=== PATIENT | female | born 1995 | race Caucasian/White ===

== ENCOUNTER 2023-11-16 01:44 | Inpatient (IN) | payer SELFPAY ==
[2023-11-16] VITALS (44 sets, daily range): BP systolic 107–141; BP diastolic 57–88; PULSE 67–142; RESP 12–23; TEMP 36.3–37.5; O2SAT 95–100
[2023-11-16] MEDS: 0.9 % SODIUM CHLORIDE 1,000 ML 1000 ML IV (02:25)
--- NOTE | 2023-11-16 02:37 | PC.NURSE ---
Per pt ROM 11/15/2023 at 2030.
[2023-11-16] MEDS: ROPIVACAINE HCL/PF 400 MG/200 ML PREMIX 6 MG EPIDURAL (03:11)
[2023-11-16 03:12] LABS: Hematocrit 37.9 % (36.0-48.0); Hemoglobin 13.4 g/dL (12.0-16.0); Mean Corpuscular HGB Conc 35.4 g/dL (29.9-35.2); Mean Corpuscular Hemoglobin 31.5 pg (26.7-34.0); Mean Platelet Volume 10.5 fL (9.5-13.5); Platelet Count 242 10^3/uL (150-450); Red Blood Count 4.26 10^6/uL (4.20-5.40); Red Cell Distribution Width 12.3 % (11.0-15.0); White Blood Count 16.9 10^3/uL (4.0-11.0)
[2023-11-16] MEDS: LIDOCAINE HCL 2% PF 100 MG/5 ML VIAL INJ (03:12)
[2023-11-16] MEDS: 0.9 % SODIUM CHLORIDE 1,000 ML 125 ML IV (03:32)
[2023-11-16] MEDS: CEFAZOLIN SODIUM/DEXTROSE,ISO 2 GM/50 ML PIGGYBACK IV (04:44)
--- NOTE | 2023-11-16 05:35 | P.OBPRC_ITS ---
Procedure Pre-op/Post-op diagnoses: Pre-Op/Post-Op Diagnoses Operation Date: 11/16/23 04:30 <No data on this case meets the specified criteria> Procedure: Procedures Operation Date: 11/16/23 04:30 Actual Procedure Side Surgeon p Not Applicable Luan Betancur DO Ball Truing Machine Operator: Stephani Savage Estimated blood loss (mL): 575 Disposition: floor Anesthesia type: general
--- NOTE | 2023-11-16 05:36 | PM.ONB ---
Brief Operative Note Date of procedure: 11/16/23 Pre-op diagnosis: iup at 42+weeks (unknown) Post-op diagnosis: same as pre-op Procedure: NAME OF PROCEDURE: [ section ] PROCEDURE: Patient was taken back to the Operating Room where she was given a spinal anesthesia with Duramorph without difficulty. She was prepped and draped in the normal sterile fashion. A Pfannenstiel skin incision was then made 2 cm above the symphysis pubis and carried down to underlying rectus fascia using a Bovie. The fascia was incised in the midline and extended laterally using Munguia scissors. Two Jake clamps were placed on the superior aspect of the fascia and dissected off the underlying rectus muscles. The same was performed on the inferior aspect as well. The muscles were then in the midline. Peritoneum was identified and entered bluntly. The peritoneum was then extended superiorly and inferiorly with good visualization of the bladder. The bladder blade was inserted. A low transverse incision was made on the patient's uterus and extended laterally digitally. The infant was then delivered atraumatically after the bladder blade was removed in the breech position. The cord was clamped and cut. Cord blood was obtained. The was handed off to awaiting team. The patient's placenta was spontaneously delivered. The uterus was then exteriorized. The uterus was cleared of all clots and debris. The bladder blade was reinserted. The patient's uterine incision was closed using #0 Vicryl in a running lock fashion. Excellent hemostasis was assured. The uterus was then returned to the patient's abdomen. The patient's abdomen was copiously irrigated using warm saline. Peritoneal gutters were cleared of all clots and debris. Again excellent hemostasis was assured. The patient's peritoneum was closed using 3-0 Vicryl in a running fashion. The patient's fascia was closed using #0 Vicryl in a running fashion. The patient's skin was closed using 4-0 Vicryl subcuticularly. The patient tolerated the procedure well. Sponge, lap, and needle counts were correct x2. The patient was taken to the Recovery Room in stable condition. Anesthesia: ALBERTO Surgeon: Luan Betancur Assistant Passenger Locomotive Engineer: Stephani Savage Estimated blood loss (mL): 575 Pathology: other (placenta) Condition: stable Disposition: PACU
[2023-11-16] MEDS: LACTATED RINGER'S SOLUTION 1,000 ML 50 ML IV (05:49)
[2023-11-16] MEDS: BUPIVACAINE HCL 0.5% PF 50 MG/10 ML VIAL INJ (06:00)
[2023-11-16] MEDS: BUPIVACAINE LIPOSOME/PF 266 MG/13.3 ML VIAL INJ (06:00)
[2023-11-16] MEDS: BUPIVACAINE HCL 0.25% PF 25 MG/10 ML VIAL INJ (06:02)
--- NOTE | 2023-11-16 06:30 | PC.NURSE ---
PAtient states she feels numb and tingly at her thighs but she can feel this proposal writer touch her rib cage and belly
[2023-11-16] MEDS: OXYTOCIN/0.9 % SODIUM CHLORIDE 20 UNITS/1,000 ML PLAST..BAG 125 UNIT IV (07:00)
--- NOTE | 2023-11-16 09:22 | W.PC.ACHO ---
Registration Status: ADM IN Primary Language: Swedish Preferred Language: Swedish Report given to Renee Avila RN at 0720. Active Medications Generic Name Dose Route Start Last Admin Trade Name Freq PRN Reason Stop Dose Admin Acetaminophen 1,000 mg 11/16/23 14:00 Acetaminophen 500 Mg Tablet PO Q8H PERCY Al Hydroxide/Mg Hydroxide 2,400 mg 11/16/23 05:38 Magnesium Hydroxide 2,400 Mg/10 Ml Oral.Susp PO Q6H PRN Dyspepsia Carboprost Tromethamine 250 mcg 11/16/23 02:13 Carboprost Tromethamine 250 Mcg/Ml 1 Ml Vial IM 11/18/23 02:13 Q15M PRN Bleeding Diphenhydramine HCl 25 mg 11/16/23 02:18 Diphenhydramine Hcl 50 Mg/Ml (1ml) Vial IV 11/17/23 02:18 Q6H PRN Itching Diphenhydramine HCl 25 mg 11/16/23 05:38 Diphenhydramine Hcl 50 Mg/Ml (1ml) Vial IV 11/17/23 05:39 Q6H PRN Itching Docusate Sodium 100 mg 11/17/23 09:00 Docusate Sodium 100 Mg Capsule PO BID PERCY Ephedrine Sulfate 5 mg 11/16/23 02:18 Ephedrine Sulfate 50 Mg/Ml Vial IV 11/17/23 02:18 Q5M PRN Blood Pressure - Low Fentanyl Citrate 100 mcg 11/16/23 02:18 Fentanyl Citrate/Pf 100 Mcg/2 Ml Vial EPIDURAL ONCE PRN epidural Fentanyl Citrate 100 mcg 11/16/23 02:18 Fentanyl Citrate/Pf 100 Mcg/2 Ml Vial EPIDURAL ONCE PRN epidural Sodium Chloride 1,000 mls @ 125 mls/hr 11/16/23 02:30 11/16/23 03:32 Sodium Chloride 0.9% 1,000 Ml IV 125 mls/hr .Q8H [facility]CY Administration Oxytocin/Sodium Chloride 20 units in 1,000 mls @ 125 mls/hr 11/16/23 02:15 11/16/23 07:00 Pitocin 20 Unit/1,000 Ml-Ns IV 11/16/23 10:14 125 mls/hr Q8H [facility] Administration Ropivacaine/Sodium Chloride 400 mg in 200 mls @ 6 mls/hr 11/16/23 02:30 11/16/23 03:11 Naropin 0.2% 400 Mg/200 Ml Bag EPIDURAL 6 mls/hr Q24H [facility] Administration Sodium Chloride 1,000 mls @ 125 mls/hr 11/16/23 06:00 Sodium Chloride 0.9% 1,000 Ml IV .Q8H [facility] Promethazine HCl 25 mg/ Sodium 51 mls @ 204 mls/hr 11/16/23 05:38 Chloride IV Q6H PRN Nausea And Vomiting Oxytocin/Sodium Chloride 20 units in 1,000 mls @ 200 mls/hr 11/16/23 05:38 Pitocin 20 Unit/1,000 Ml-Ns IV 11/16/23 10:37 ONCE ONE Lactated Ringer's 1,000 mls @ 50 mls/hr 11/16/23 06:00 11/16/23 05:49 Lactated Ringers IV 50 mls/hr .Q20H [facility] Administration Cefazolin Sodium/Dextrose 1 gm in 50 mls @ 100 mls/hr 11/16/23 11:00 Ancef IV 11/16/23 11:29 ONCE ONE Ibuprofen 800 mg 11/16/23 05:38 Ibuprofen 400 Mg Tablet PO Q8H PRN Pain Ibuprofen 800 mg 11/17/23 00:00 Ibuprofen 400 Mg Tablet PO Q8H [facility] Ketorolac Tromethamine 30 mg 11/16/23 05:38 Ketorolac Tromethamine 30 Mg/Ml Vial IVP 11/18/23 05:39 Q6H PRN Pain Ketorolac Tromethamine 30 mg 11/16/23 12:00 Ketorolac Tromethamine 30 Mg/Ml Vial IVP Q6H [facility] Lidocaine 5 ml 11/16/23 02:13 Lidocaine Viscous 2% 15 Ml Solution TOPICAL ONCE PRN Pain Lidocaine 1 ml 11/16/23 02:13 Lidocaine Hcl 1% 200 Mg/20 Ml Mdv INJ ONCE PRN Pain Lidocaine 5 ml 11/16/23 02:18 11/16/23 03:12 Lidocaine Hcl 2% Pf 100 Mg/5 Ml Vial INJ 11/17/23 02:18 5 ml Q1H PRN Administration Pain Methylergonovine Maleate 0.2 mg 11/16/23 02:13 Methylergonovine Maleate 0.2 Mg/Ml Ampule IM 11/18/23 02:13 ONCE PRN Uterine Contractility/Contract Methylergonovine Maleate 0.2 mg 11/16/23 02:13 Methylergonovine Maleate 0.2 Mg Tablet PO 11/18/23 02:13 Q4H PRN Uterine Contractility/Contract Misoprostol 600 mcg 11/16/23 02:13 Misoprostol 100 Mcg Tablet PO 11/18/23 02:13 ONCE PRN Uterine Bleeding Misoprostol 800 mcg 11/16/23 02:13 Misoprostol 100 Mcg Tablet SL 11/18/23 02:13 ONCE PRN Uterine Bleeding Misoprostol 1,000 mcg 11/16/23 02:13 Misoprostol 100 Mcg Tablet IL 11/18/23 02:13 ONCE PRN Uterine Bleeding Naloxone HCl 0.4 mg 11/16/23 02:18 Naloxone Hcl 0.4 Mg/Ml Vial IV 11/17/23 02:18 ONCE PRN Opiate Reversal Ondansetron HCl 4 mg 11/16/23 02:13 Ondansetron Pf 4 Mg/2 Ml Vial IV Q6H PRN Nausea And Vomiting Ondansetron HCl 4 mg 11/16/23 02:13 Ondansetron 4 Mg Rapdis Tablet SL Q6H PRN Nausea And Vomiting Ondansetron HCl 4 mg 11/16/23 05:38 Ondansetron Pf 4 Mg/2 Ml Vial IV Q6H PRN Nausea And Vomiting Ondansetron HCl 4 mg 11/16/23 05:38 Ondansetron 4 Mg Rapdis Tablet PO Q6H PRN Nausea And Vomiting Oxycodone HCl 5 mg 11/16/23 08:53 Oxycodone Hcl 5 Mg Tablet PO Q4H PRN Pain Oxycodone/Acetaminophen 1 tab 11/16/23 05:38 Oxycodone Hcl/Acetaminophen 5mg/325mg PO Q4H PRN Pain Scale 4-6 Oxycodone/Acetaminophen 2 tab 11/16/23 05:38 Oxycodone Hcl/Acetaminophen 5mg/325mg PO Q4H PRN Pain Scale 7-10 Oxytocin 10 unit 11/16/23 02:13 Oxytocin 10 Unit/Ml Vial IM 11/18/23 02:13 ONCE PRN Bleeding Senna 17.2 mg 11/16/23 20:00 Sennosides 8.6 Mg Tablet PO QHS PRN Constipation Simethicone 80 mg 11/16/23 05:38 Simethicone 80 Mg Tab.Chew PO QID PRN Abdominal Distention Sterile Water 10 ml 11/16/23 06:00 Water For Injection, Sterile 50 Ml Vial INJ ONCE PERCY Diet Category Date Time Status Regular Consistency Diet Diet 11/16/23 05:38 Active Consults Category Date Time Status Consult to Anesthesiology Routine Cons 11/16/23 Ordered Consult to Anesthesiology Routine Cons 11/16/23 Ordered IV Insertion/Site Date of IV Line Insertion [ 11/16/23 Short PIV (<1.75 in) 20g right Wrist] IV Insertion Time [Short PIV ( 02:10 <1.75 in) 20g right Wrist] Neurology Patient orientation (short person,place,situation list) Respiratory Pulse Oximetry 98 Pulse Oximetry 97 Pulse Oximetry 99 Pulse Oximetry 100 Pulse Oximetry 97 Pulse Oximetry 97 Pulse Oximetry 97 Pulse Oximetry 95 Pulse Oximetry 95 Pulse Oximetry 96 Pulse Oximetry 95 Oxygen Delivery Method Room Air Oxygen Delivery Method Room Air Oxygen Delivery Method Room Air Oxygen Delivery Method Room Air
[2023-11-16] MEDS: KETOROLAC TROMETHAMINE 30 MG/ML VIAL IVP (13:08)
[2023-11-16] MEDS: CEFAZOLIN SODIUM/DEXTROSE,ISO 1 GM/50 ML IV.SOLN IV (13:08)
--- NOTE | 2023-11-16 19:22 | W.PC.ACHO ---
Registration Status: ADM IN Primary Language: Bahamian Preferred Language: Bahamian Active Medications Generic Name Dose Route Start Last Admin Trade Name Freq PRN Reason Stop Dose Admin Acetaminophen 1,000 mg 11/16/23 14:00 Acetaminophen 500 Mg Tablet PO Q8H [facility] Al Hydroxide/Mg Hydroxide 2,400 mg 11/16/23 05:38 Magnesium Hydroxide 2,400 Mg/10 Ml Oral.Susp PO Q6H PRN Dyspepsia Carboprost Tromethamine 250 mcg 11/16/23 02:13 Carboprost Tromethamine 250 Mcg/Ml 1 Ml Vial IM 11/18/23 02:13 Q15M PRN Bleeding Diphenhydramine HCl 25 mg 11/16/23 02:18 Diphenhydramine Hcl 50 Mg/Ml (1ml) Vial IV 11/17/23 02:18 Q6H PRN Itching Diphenhydramine HCl 25 mg 11/16/23 05:38 Diphenhydramine Hcl 50 Mg/Ml (1ml) Vial IV 11/17/23 05:39 Q6H PRN Itching Docusate Sodium 100 mg 11/17/23 09:00 Docusate Sodium 100 Mg Capsule PO BID PERCY Ephedrine Sulfate 5 mg 11/16/23 02:18 Ephedrine Sulfate 50 Mg/Ml Vial IV 11/17/23 02:18 Q5M PRN Blood Pressure - Low Fentanyl Citrate 100 mcg 11/16/23 02:18 Fentanyl Citrate/Pf 100 Mcg/2 Ml Vial EPIDURAL ONCE PRN epidural Fentanyl Citrate 100 mcg 11/16/23 02:18 Fentanyl Citrate/Pf 100 Mcg/2 Ml Vial EPIDURAL ONCE PRN epidural Sodium Chloride 1,000 mls @ 125 mls/hr 11/16/23 02:30 11/16/23 03:32 Sodium Chloride 0.9% 1,000 Ml IV 125 mls/hr .Q8H [facility] Administration Ropivacaine/Sodium Chloride 400 mg in 200 mls @ 6 mls/hr 11/16/23 02:30 11/16/23 03:11 Naropin 0.2% 400 Mg/200 Ml Bag EPIDURAL 6 mls/hr Q24H [facility] Administration Sodium Chloride 1,000 mls @ 125 mls/hr 11/16/23 06:00 Sodium Chloride 0.9% 1,000 Ml IV .Q8H [facility] Promethazine HCl 25 mg/ Sodium 51 mls @ 204 mls/hr 11/16/23 05:38 Chloride IV Q6H PRN Nausea And Vomiting Lactated Ringer's 1,000 mls @ 50 mls/hr 11/16/23 06:00 11/16/23 05:49 Lactated Ringers IV 50 mls/hr .Q20H [facility] Administration Ibuprofen 800 mg 11/16/23 05:38 Ibuprofen 400 Mg Tablet PO Q8H PRN Pain Ibuprofen 800 mg 11/17/23 00:00 Ibuprofen 400 Mg Tablet PO Q8H [facility] Ketorolac Tromethamine 30 mg 11/16/23 05:38 Ketorolac Tromethamine 30 Mg/Ml Vial IVP 11/18/23 05:39 Q6H PRN Pain Ketorolac Tromethamine 30 mg 11/16/23 12:00 11/16/23 13:08 Ketorolac Tromethamine 30 Mg/Ml Vial IVP 30 mg Q6H [facility] Administration Lidocaine 5 ml 11/16/23 02:13 Lidocaine Viscous 2% 15 Ml Solution TOPICAL ONCE PRN Pain Lidocaine 1 ml 11/16/23 02:13 Lidocaine Hcl 1% 200 Mg/20 Ml Mdv INJ ONCE PRN Pain Lidocaine 5 ml 11/16/23 02:18 11/16/23 03:12 Lidocaine Hcl 2% Pf 100 Mg/5 Ml Vial INJ 11/17/23 02:18 5 ml Q1H PRN Administration Pain Methylergonovine Maleate 0.2 mg 11/16/23 02:13 Methylergonovine Maleate 0.2 Mg/Ml Ampule IM 11/18/23 02:13 ONCE PRN Uterine Contractility/Contract Methylergonovine Maleate 0.2 mg 11/16/23 02:13 Methylergonovine Maleate 0.2 Mg Tablet PO 11/18/23 02:13 Q4H PRN Uterine Contractility/Contract Misoprostol 600 mcg 11/16/23 02:13 Misoprostol 100 Mcg Tablet PO 11/18/23 02:13 ONCE PRN Uterine Bleeding Misoprostol 800 mcg 11/16/23 02:13 Misoprostol 100 Mcg Tablet SL 11/18/23 02:13 ONCE PRN Uterine Bleeding Misoprostol 1,000 mcg 11/16/23 02:13 Misoprostol 100 Mcg Tablet [place] 11/18/23 02:13 ONCE PRN Uterine Bleeding Naloxone HCl 0.4 mg 11/16/23 02:18 Naloxone Hcl 0.4 Mg/Ml Vial IV 11/17/23 02:18 ONCE PRN Opiate Reversal Ondansetron HCl 4 mg 11/16/23 02:13 Ondansetron Pf 4 Mg/2 Ml Vial IV Q6H PRN Nausea And Vomiting Ondansetron HCl 4 mg 11/16/23 02:13 Ondansetron 4 Mg Rapdis Tablet SL Q6H PRN Nausea And Vomiting Ondansetron HCl 4 mg 11/16/23 05:38 Ondansetron Pf 4 Mg/2 Ml Vial IV Q6H PRN Nausea And Vomiting Ondansetron HCl 4 mg 11/16/23 05:38 Ondansetron 4 Mg Rapdis Tablet PO Q6H PRN Nausea And Vomiting Oxycodone HCl 5 mg 11/16/23 08:53 Oxycodone Hcl 5 Mg Tablet PO Q4H PRN Pain Oxycodone/Acetaminophen 1 tab 11/16/23 05:38 Oxycodone Hcl/Acetaminophen 5mg/325mg PO Q4H PRN Pain Scale 4-6 Oxycodone/Acetaminophen 2 tab 11/16/23 05:38 Oxycodone Hcl/Acetaminophen 5mg/325mg PO Q4H PRN Pain Scale 7-10 Oxytocin 10 unit 11/16/23 02:13 Oxytocin 10 Unit/Ml Vial IM 11/18/23 02:13 ONCE PRN Bleeding Senna 17.2 mg 11/16/23 20:00 Sennosides 8.6 Mg Tablet PO QHS PRN Constipation Simethicone 80 mg 11/16/23 05:38 Simethicone 80 Mg Tab.Chew PO QID PRN Abdominal Distention Sterile Water 10 ml 11/16/23 06:00 Water For Injection, Sterile 50 Ml Vial INJ ONCE [facility] Diet Category Date Time Status Regular Consistency Diet Diet 11/16/23 05:38 Active Consults Category Date Time Status Consult to Anesthesiology Routine Cons 11/16/23 Ordered Consult to Anesthesiology Routine Cons 11/16/23 Ordered IV Insertion/Site Date of IV Line Insertion [ 11/16/23 Short PIV (<1.75 in) 20g right Wrist] IV Insertion Time [Short PIV ( 02:10 <1.75 in) 20g right Wrist] Neurology Patient orientation (short person,place,situation list) Respiratory Pulse Oximetry 98 Pulse Oximetry 97 Pulse Oximetry 99 Pulse Oximetry 100 Pulse Oximetry 97 Pulse Oximetry 97 Pulse Oximetry 97 Pulse Oximetry 95 Pulse Oximetry 95 Pulse Oximetry 96 Pulse Oximetry 95 Oxygen Delivery Method Room Air Oxygen Delivery Method Room Air Oxygen Delivery Method Room Air Oxygen Delivery Method Room Air Oxygen Delivery Method Room Air Oxygen Delivery Method Room Air Oxygen Delivery Method Room Air Bowels Bowel Pattern No Bowel Movement Catheter Date Urinary Catheter Removed 11/16/23 [Urethral] Time Urinary Catheter 16:40 Discontinued [Urethral]
[2023-11-17 01:38] VITALS: RESP 16; TEMP 36.6
[2023-11-17 01:41] VITALS: BP 126/66; PULSE 80
[2023-11-17 06:07] VITALS: BP 122/68; PULSE 92; TEMP 36.5
[2023-11-17 06:32] LABS: Basophils Percent Auto 0.1 % (0.2-2.0); Eosinophils Percent Auto 0.1 % (0.9-7.0); Hematocrit 31.4 % (36.0-48.0); Hemoglobin 10.6 g/dL (12.0-16.0); Immature Granulocytes Abs Auto 0.04 10^3/uL (0.00-0.03); Immature Granulocytes Pct Auto 0.4 % (0.0-0.5); Lymphocytes Absolute Auto 1.3 10^3/uL (1.2-3.8); Lymphocytes Percent Auto 11.3 % (20.5-60.0); Mean Corpuscular HGB Conc 33.8 g/dL (29.9-35.2); Mean Corpuscular Hemoglobin 31.5 pg (26.7-34.0); Mean Corpuscular Volume 93.5 fL (81.0-99.0); Monocytes Absolute Auto 0.7 10^3/uL (0.3-0.8); Monocytes Percent Auto 6.6 % (1.7-12.0); Neutrophils Absolute Auto 9.1 10^3/uL (1.4-6.5); Neutrophils Percent Auto 81.5 % (43.0-75.0); Platelet Count 167 10^3/uL (150-450); Red Blood Count 3.36 10^6/uL (4.20-5.40); Red Cell Distribution Width 12.8 % (11.0-15.0); White Blood Count 11.2 10^3/uL (4.0-11.0)
--- NOTE | 2023-11-17 07:51 | PM.OBPN ---
OB - PN: Subj Subjective Patient comments: no complaints and pain well controlled [place] status: doing well Exam Constitutional Vital Signs, click to edit/add: Last Vital Signs Temp 97.7 F 11/17/23 06:07 Pulse 92 H 11/17/23 06:07 Resp 16 11/17/23 01:38 BP 122/68 11/17/23 06:07 Pulse Ox 98 11/16/23 06:36 O2 Del Method Room Air 11/16/23 16:40 Documenting provider has reviewed patient's vital signs: yes Common normals: no apparent distress Respiratory Common normals: normal respiratory effort and clear to auscultation bilaterally Cardio Common normals: regular rate and regular rhythm GI Common normals: Normal to inspection, nondistended, normoactive bowel sounds present Extremity Common normals: no calf tenderness Results Labs Labs: Short CBC 11/17/23 Range/Units 06:20 WBC 11.2 H (4.0-11.0) 10^3/uL Hgb 10.6 L (12.0-16.0) g/dL Hct 31.4 L (36.0-48.0) % Plt Count 167 (150-450) 10^3/uL Urinary Catheter Management Urinary Catheter Management Urethral: Cath placed during this visit: yes, but has since been removed by the nurse Removal date: 11/16/23 Removal time: 16:40 OB - PN: A/P Plan - day: 1 Plan: routine postop care Time Spent with Patient Time: Total time spent is greater than 50% in coordination of care (as documented) at patient's floor/unit and/or counseling patient: Total time spent with greater than 50% in coordination of care (as documented) at patient's floor/unit and/or counseling patient: less than 15 minutes
[2023-11-17 08:24] VITALS: BP 127/74; PULSE 84
[2023-11-17 08:25] VITALS: RESP 16; TEMP 36.9
--- NOTE | 2023-11-17 12:03 | CM.NOTE ---
11/17/23) 11:45 Spoke to patient and she is a true self pay and she would like someone to speak to her regarding her financial options. Emailed financial counselor, Tahira Danielson, requesting she reach out to patient.
[2023-11-17 16:26] VITALS: BP 109/68; PULSE 86; RESP 16; TEMP 36.6; O2SAT 98
--- NOTE | 2023-11-17 20:15 | PC.NURSE ---
1919- Report given to Natanael Olmedo RN.
[2023-11-18 00:45] VITALS: BP 121/75; PULSE 86; TEMP 36.5
--- NOTE | 2023-11-18 07:29 | W.PC.ACHO ---
Registration Status: ADM IN Primary Language: Australian Preferred Language: Australian Active Medications Generic Name Dose Route Start Last Admin Trade Name Freq PRN Reason Stop Dose Admin Acetaminophen 1,000 mg 11/16/23 14:00 11/17/23 22:00 Acetaminophen 500 Mg Tablet PO Not Given Q8H [facility] Al Hydroxide/Mg Hydroxide 2,400 mg 11/16/23 05:38 Magnesium Hydroxide 2,400 Mg/10 Ml Oral.Susp PO Q6H PRN Dyspepsia Docusate Sodium 100 mg 11/17/23 09:00 11/17/23 21:55 Docusate Sodium 100 Mg Capsule PO Not Given BID PERCY Sodium Chloride 1,000 mls @ 125 mls/hr 11/16/23 02:30 11/16/23 03:32 Sodium Chloride 0.9% 1,000 Ml IV 125 mls/hr .Q8H [facility] Administration Promethazine HCl 25 mg/ Sodium 51 mls @ 204 mls/hr 11/16/23 05:38 Chloride IV Q6H PRN Nausea And Vomiting Ibuprofen 800 mg 11/16/23 05:38 Ibuprofen 400 Mg Tablet PO Q8H PRN Pain Ibuprofen 800 mg 11/17/23 00:00 11/18/23 00:00 Ibuprofen 400 Mg Tablet PO Not Given Q8H [facility] Ketorolac Tromethamine 30 mg 11/16/23 12:00 11/17/23 09:08 Ketorolac Tromethamine 30 Mg/Ml Vial IVP Not Given Q6H [facility] Ondansetron HCl 4 mg 11/16/23 02:13 Ondansetron Pf 4 Mg/2 Ml Vial IV Q6H PRN Nausea And Vomiting Ondansetron HCl 4 mg 11/16/23 02:13 Ondansetron 4 Mg Rapdis Tablet SL Q6H PRN Nausea And Vomiting Oxycodone HCl 5 mg 11/16/23 08:53 Oxycodone Hcl 5 Mg Tablet PO Q4H PRN Pain Oxycodone/Acetaminophen 1 tab 11/16/23 05:38 Oxycodone Hcl/Acetaminophen 5mg/325mg PO Q4H PRN Pain Scale 4-6 Oxycodone/Acetaminophen 2 tab 11/16/23 05:38 Oxycodone Hcl/Acetaminophen 5mg/325mg PO Q4H PRN Pain Scale 7-10 Senna 17.2 mg 11/16/23 20:00 Sennosides 8.6 Mg Tablet PO QHS PRN Constipation Simethicone 80 mg 11/16/23 05:38 Simethicone 80 Mg Tab.Chew PO QID PRN Abdominal Distention Respiratory Pulse Oximetry 98 Oxygen Delivery Method Room Air Oxygen Delivery Method Room Air Bowels Bowel Pattern No Bowel Movement Renal Bladder Pattern Continent Bladder Pattern Continent Catheter Date Urinary Catheter Removed 11/16/23 [Urethral] Time Urinary Catheter 16:40 Discontinued [Urethral]
--- NOTE | 2023-11-18 09:34 | P.OBPN_ITS ---
OB - PN: Subj Subjective Patient comments: no complaints and pain well controlled [place] status: doing well Exam Constitutional Vital Signs, click to edit/add: Last Vital Signs Temp 97.7 F 11/18/23 00:45 Pulse 86 11/18/23 00:45 Resp 16 11/17/23 16:26 BP 121/75 11/18/23 00:45 Pulse Ox 98 11/17/23 16:26 O2 Del Method Room Air 11/17/23 16:26 Documenting provider has reviewed patient's vital signs: yes Common normals: no apparent distress Respiratory Common normals: normal respiratory effort and clear to auscultation bilaterally Cardio Common normals: regular rate and regular rhythm GI Common normals: Normal to inspection, nondistended, normoactive bowel sounds present Extremity Common normals: no clubbing, cyanosis or edema and no calf tenderness Urinary Catheter Management Urinary Catheter Management Urethral: Cath placed during this visit: yes, but has since been removed by the nurse Removal date: 11/16/23 Removal time: 16:40 OB - PN: A/P Plan - day: 2 Plan: routine postop care, discharge home and other (1wk) Time Spent with Patient Time: Total time spent is greater than 50% in coordination of care (as documented) at patient's floor/unit and/or counseling patient: Total time spent with greater than 50% in coordination of care (as documented) at patient's floor/unit and/or counseling patient: less than 15 minutes
[2023-11-18 11:00] VITALS: RESP 16
[2023-11-18 12:05] VITALS: BP 124/71; PULSE 83
--- NOTE | 2023-11-18 13:51 | PC.NURSE ---
1330 Patient assisted out to car with in car seat. Mom and in stable condition, car seat secured safely in car.
--- NOTE | 2023-11-26 | DS_ITS ---
DISCHARGE DATE: 11/26/2023 PRIMARY DIAGNOSES: 1. Intrauterine at 42+ weeks. 2. Breech presentation. PROCEDURE: section. HOSPITAL COURSE: As expected. Please see chart for full details. LABORATORY DATA: Please see chart. COMPLICATIONS: None. DISCHARGE CONDITION: Stable. CONSULTATION: Anesthesia. DISCHARGE INSTRUCTIONS: 1. Diet: Regular. 2. Medications: a. Percocet 5/325 one to two p.o. every 4-6 hours p.r.n. pain. b. Motrin 800 one p.o. every 8 hours p.r.n. pain. 3. Followup in one week. Restrictions: Pelvic rest for 6 weeks. No heavy lifting[address] May drive when pain free and no longer on narcotics. MTDD
== END 2023-11-18 13:30 | disposition home or self-care (01) | DRG 788 ==
PROVIDERS: Admitting Provider Obstetrics & Gynecology; Visit Provider Obstetrics & Gynecology
PROC: 10D00Z1 Extraction of Products of Conception, Low, Open Approach (ICD-10-PCS; CPT 59514; principal; 2023-11-16 04:30)
DX: O32.1XX0 Maternal care for breech presentation, not applicable or unspecified (principal); O48.0 Post-term pregnancy; Z3A.42 42 weeks gestation of pregnancy; Z37.0 Single live birth
CPT/HCPCS: 36415; 59050; 64488; 80307; 85025; 85027; 86850; 86900; 86901; 88307; J0131; J0665; J0690; J1100; J1885; J2250; J2405; J2590; J2704; J2795; J3010

== ENCOUNTER 2024-07-14 11:38 | Outpatient (RCR) | payer MEDICAID, SELFPAY ==
[2024-07-14 14:23] LABS: HCG Quantitative 101810 mIU/mL
== END 2024-07-28 12:06 | disposition home or self-care (01) ==
LOC: LAB 11:38
PROVIDERS: Visit Provider Obstetrics & Gynecology
DX: N92.6 Irregular menstruation, unspecified (principal)
CPT/HCPCS: 36415; 84702

== ENCOUNTER 2024-07-29 08:33 | Outpatient (OUT) | payer MEDICAID, SELFPAY ==
--- NOTE | 2024-07-29 08:30 | US_ITS ---
[address] [address] Patient Name: NANCY GR MRN: [id number] date: 1995 Sex: F Assigned Patient Location: [facility] Current Patient Location: [facility] Accession/Order Number: [id number] Exam Date: 07/29/2024 08:35 Report Date: 07/29/2024 10:48 At the request of: REED MARSHALL Procedure: US OB >= 14 weeks Fetus EXAMINATION: US OB >= 14 weeks Fetus, US OB transvaginal HISTORY: MISSED MENSES COMPARISON: No relevant comparison available. TECHNIQUE: Transabdominal sonographic examination was performed for obstetrical and evaluation. FINDINGS: Number: 1 Heart Rate: 146 bpm H.B. /min Amniotic Fluid Volume: Subjectively normal Placental Location: Blank Cervix Length: 3.33 cm Gestational sac: 8.34 cm CRL: 9.26 cm, 15 weeks 1 day BIOMETRY: BPD: 3.13 cm; 15 weeks 6 days; HC: 10.76 cm; 15 weeks 1 day; AC: 9.89 cm; 16 weeks 0 days; FL: 1.87 cm; 15 weeks 4 days; EFW:139.13 g; 5 ounces FL/AC: 18.91 FL/BPD: 59.74 HC/AC: 1.09 GESTATIONAL AGE: Age by EDC: Unknown Age by current US: 15 weeks 4 days CLARISSA by current US: 2025-01-16 US/US OB >= 14 weeks Fetus IMPRESSION: Davis intrauterine gestation measuring 15 weeks 4 days Closed cervix measuring 3.3 cm in length *Reference: [employer] Practice Guideline for the performance of Obstetric Ultrasound Examinations, June 28, 2007. Electronically authenticated by: LUCILA CASTILLO Date: 07/29/2024 10:48
--- NOTE | 2024-07-29 08:34 | US_ITS ---
[address] [address] Patient Name: NANCY GR MRN: [id number] date: 1995 Sex: F Assigned Patient Location: [facility] Current Patient Location: [facility] Accession/Order Number: [id number] Exam Date: 07/29/2024 08:34 Report Date: 07/29/2024 10:48 At the request of: REED MARSHALL Procedure: US OB transvaginal EXAMINATION: US OB >= 14 weeks Fetus, US OB transvaginal HISTORY: MISSED MENSES COMPARISON: No relevant comparison available. TECHNIQUE: Transabdominal sonographic examination was performed for obstetrical and evaluation. FINDINGS: Number: 1 Heart Rate: 146 bpm H.B. /min Amniotic Fluid Volume: Subjectively normal Placental Location: Blank Cervix Length: 3.33 cm Gestational sac: 8.34 cm CRL: 9.26 cm, 15 weeks 1 day BIOMETRY: BPD: 3.13 cm; 15 weeks 6 days; HC: 10.76 cm; 15 weeks 1 day; AC: 9.89 cm; 16 weeks 0 days; FL: 1.87 cm; 15 weeks 4 days; EFW:139.13 g; 5 ounces FL/AC: 18.91 FL/BPD: 59.74 HC/AC: 1.09 GESTATIONAL AGE: Age by EDC: Unknown Age by current US: 15 weeks 4 days CLARISSA by current US: 2025-01-16 US/US OB transvaginal IMPRESSION: Davis intrauterine gestation measuring 15 weeks 4 days Closed cervix measuring 3.3 cm in length *Reference: [employer] Practice Guideline for the performance of Obstetric Ultrasound Examinations, June 28, 2007. Electronically authenticated by: LUCILA CASTILLO Date: 07/29/2024 10:48
--- OUTSIDE RECORDS SUMMARY | 2024-07-29 08:37 | XMS_ITS | CCD ---
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 Name Role Phone Sailaja Ren Tiffanie Unavailable NON STAFF Primary Care Provider UnavailMD Alisia Smith Attending Provider Sarah Dominguez Unavailable PIPE ., DR MCBRIDE Consulting Unavailable PIPE ., DR MCBRIDE Attending Unavailable AICHHOLZ, TILE ERECTOR SAILAJA Primary Care Unavailable PIPE ., DR MCBRIDE Admitting Unavailable ZIEBER, DR GM Rae Consulting Unavailable KARASIK ., DR KRUGER Consulting Unavailabl e KARASIK ., DR KRUGER Attending Unavailabl e AICHHOLZ, TILE ERECTOR SAILAJA Primary Care Unavailable KARASIK ., DR KRUGER Admitting Unavailabl e PIPE ., DR MCBRIDE Procedure Practitioner Unavail able PIPE ., DR MCBRIDE Consulting Unavailable KARASIK ., DR KRUGER Admitting Unavailabl e KARASIK ., DR KRUGER Attending Unavailabl e AICHHOLZ, TILE ERECTOR SIALAJA Primary Care Unavailable AICHHOLZ, TILE ERECTOR SAILAJA Primary Care Unavailable PIPE ., DR MCBRIDE Attending Unavailable PIPE ., DR MCBRIDE Admitting Unavailable AICHHOLZ, TILE ERECTOR SAILAJA Primary Care Unavailable PIPE ., DR MCBRIDE Attending Unavailable PIPE ., DR MCBRIDE Admitting Unavailable PIPE ., DR MCBRIDE Consulting Unavailable AICHHOLZ, TILE ERECTOR SAILAJA Primary Care Unavailable PIPE ., DR MCBRIDE Attending Unavailable PIPE ., DR MCBRIDE Admitting Unavailable PIPE ., DR MCBRIDE Consulting Unavailable AICHHOLZ, TILE ERECTOR SAILAJA Primary Care Unavailable PIPE ., DR MCBRIDE Attending Unavailable PIPE ., DR MCBRIDE Admitting Unavailable PIPE ., DR MCBRIDE Consulting Unavailable AICHHOLZ, TILE ERECTOR SAILAJA Primary Care Unavailable PIPE ., DR MCBRIDE Attending Unavailable PIPE ., DR MCBRIDE Admitting Unavailable [facility] Primary Care Unavailable PIPE ., DR MCBRIDE Attending Unavailable PIEP ., DR MCBRIDE Admitting Unavailable PIPE ., DR MCBRIDE Consulting Unavailable ZIEBER, DR GM Rae Consulting Unavailable [facility] Primary Care Unavailable PIPE ., DR MCBRIDE Attending Unavailable PIPE ., DR MCBRIDE Consulting Unavailable PIPE ., DR MCBRIDE Admitting Unavailable Reed Betancur Attending Provider Reed Betancur Attending Unavailable Reed Betancur Admitting Unavailable Reed Betancur Attending Unavailable Pipe, Reed Admitting Unavailable Unavailable Primary Care Provider Unavailabl e Allergies Allergy Classification Reported Allergen(s) Allergy Type Date of Onset Reaction(s) Facility (2 sources) Amoxicillin Drug Allergy 4 hives, Unknown [facility] (1 source) Amoxicillin Drug Allergy 3 [facility] (1 source) Penicillin G Drug Allergy 4 Unknown [facility] Medications Current Medications Medication Drug Class(es) Dates Sig (Normalized) Sig (Original) predniSONE 20 mg oral tablet (1 source) Start: 03-23-2022 take 1 tablet by mouth every twelve hours predniSONE 20 MG 1 tablet Orally 2 times a day for 5 day(s) Feb, Active Vit-Fe Fumarate-FA (PNV Plus Multivitamin) 27-1 MG tablet (1 source) Vit-Fe Fumarate-FA (PNV Plus Multivitamin) 27-1 MG tablet 1 (one) time each day at the same time Active Completed/Discontinued Medications Medication Drug Class(es) Dates Sig (Normalized) Sig (Original) triamcinolone acetonide 40 mg/ml injectable suspension (2 sources) Corticosteroid Start: 03-23-2022 Kenalog-40 Feb, 40 mg Triamcinolone Ac etonide 0.1 % 1 application Externally Twice a day Active Problems Active Problems Problem Classification Problem Date Documented Date Episodic/Chronic Abdominal pain (1 source) Abdominal pain; Translations: [Unspecified abdominal pain] Episodic Menstrual disorders (6 sources) Missed period; Translations: [Irregular menstrual cycle] Onset: 05-08-2022 Chronic OB-related trauma to perineum and vulva (1 source) First degree perineal laceration during delivery; Translations: [FIRST DEG PERINEAL LAC DUR DELIV] Onset: 12-11-2022 Episodic Other and delivery including normal (11 sources) care status; Translations: [Supervision of other normal ] Onset: 05-05-2022 Episodic Other screening for suspected conditions (not mental disorders or infectious disease) (13 sources) Encounter for screening for Streptococcus B; Translations: [Encounter for screening for diabetes mellitus] Onset: 05-09-2022 Episodic Residual codes; unclassified (1 source) 39 weeks gestation of ; Translations: [39 WEEKS GESTATION OF ] Onset: 12-11-2022 Episodic Past or Other Problems Problem Classification Problem Date Documented Date Episodic/Chronic Allergic reactions (1 source) Unspecified contact dermatitis, unspecified cause Onset: 03-23-2022 Resolved: 03-23-2022 Episodic Immunizations and screening for infectious disease (2 sources) Encounter for screening for human papillomavirus (HPV); Translations: [Contact with and (suspected) exposure to infections with a predominantly sexual mode of transmission] Onset: 08-30-2022 Episodic Other female genital disorders (1 source) Other specified noninflammatory disorders of vagina; Translations: [OTH SPEC NONINFLAMMATORY D/O VAGINA] Onset: 08-30-2022 Episodic Residual codes; unclassified (1 source) 9 weeks gestation of ; Translations: [9 WEEKS GESTATION OF ] Onset: 05-05-2022 Episodic Results Test Name Value Interpretation Reference Range Facility [facility] PREG QUANT HCGon 10-17-2 024 HCG QUANTITATIVE [id number] mIU/mL [facility] Comment on above: 5-50 0.2-1 WEEK 50-500 1-2 WEEKS 100-5,000 2-3 WEEKS 500-10,000 3-4 WEEKS 1,000-50,000 4-5 WEEKS 10,000-100,000 5-6 WEEKS 15,000-200,000 6-8 WEEKS 10,000-100,000 2-3 MONTHS [facility] Moises 11-16-2023 L Specimen: [id number] Received: 11/16/23 Status: HUMA [place] Num: [id number] Spec Type: Surgical Subm Dr: Reed Betancur Tissues: A Placenta - 3rd Trimester (Greater than 28 weeks) (PLACENTA) Procedures: HE/4, Gross/Micro L5 Age/ Patient Sex Location Account Attending Physician TrentSusana Fay 28/F LABELL [id number] Reed Betancur SPEC NUM: [id number] RECD: 11/16/23 STATUS: HUMA [facility] NUM: [id number] MARTHA: 11/16/23- SUBM DR: Reed Betancur ENTERED: 11/16/23 [facility] DR: Shawn,Lab SPEC TYPE: Surgical DEPT: MEGHNA EDWARD ORDERED: HE/4, Gross/Micro L5 ORDERED: HE/4, Gross/Micro L5 Pathological Diagnosis Placenta, With: Umbilical Cord: Three Vessel Cord, Unremarkable. Membranes: Unremarkable. Placenta: Mature Chorionic Villi, Consistent With Third Trimester Placenta. Foci of Parenchymal Necrosis Are Identified. Clinical Information section-breech, history of miscarriage, no care, gestation 42 weeks, G3, P1 Gross Description Received in formalin labeled with the patient's name, date of and placenta is an 18 x 15 cm cortes placenta which following fixation and after removal of the membranes and umbilical cord is 608 g. The membranes are diffusely thickened, chacon and opaque. The surface is glistening pale blue-murcia with multifocal subamniotic fibrin deposition. The attached 26 cm long by 1.5 cm average diameter segment of three-vessel umbilical cord is slightly eccentrically inserted 5 cm from the edge of the placental disc. The maternal surface is focally disrupted, but appears complete. Sectioning demonstrates soft red-brown parenchyma 2.7 cm in average thickness. Furniture Repairer sections are submitted in 4 cassettes as follows: A1 - membranes, umbilical cord, and decidua basalis A2-A3 - Central placenta, full-thickness, with fibrin deposition -------- Specimen: [id number] Received: 11/16/23 Status: HUMA [place] Num: [id number] Spec Type: Surgical Subm Dr: Reed Betancur Tissues: A Placenta - 3rd Trimester (Greater than 28 weeks) (PLACENTA) Procedures: Jesus DUNHAM/Taya L5 -------- Patient: Susana Newman [id number] (Continued) -------- Specimen: [id number] Received: 11/16/23 (Continued) Gross Description (Continued) Signed (signature on file) Desiree Ward MD 11/22/23 2135 -------- Specimen: [id number] Received: 11/16/23 Status: HUMA [facility] Num: [id number] Spec Type: Surgical Subm Dr: Reed Betancur Tissues: A Placenta - 3rd Trimester (Greater than 28 weeks) (PLACENTA) Procedures: Jesus DUNHAM/Taya L5 -------- Patient: Susana Newman [id number] (Continued) -------- Specimen: [id number] Received: 11/16/23 (Continued) Gross Description (Continued) A4 - Peripheral placenta CPT Codes 33386 -------- -------- Specimen: [id number] Received: 11/16/23 Status: HUMA [place] Num: [id number] Spec Type: Surgical Subm Dr: Reed Betancur Tissues: A Placenta - 3rd Trimester (Greater than 28 weeks) (PLACENTA) Procedures: HE/4, Gross/Micro L5 -------- Patient: Susana Newman [id number] (Continued) -------- Signed (signature on file) Desiree Ward MD 11/22/23 2135 Normal [facility] CBC W MANUAL DIFFon 12-06-19 23 ATYPICAL LYMPH # Normal [facility] Comment on above: Performed By: #### C BAYRON #### [facility] [address] [place] [address] Dr. Jennifer Almanza ATYPICAL LYMPH % Normal [facility] Comment on above: Performed By: #### C BAYRON #### [facility] [address] [place] [address] Dr. Jennifer Almanza BAND # 0.0 103/ul Normal 0.0-0.3 [facility] Comment on above: Performed By: #### Sumeet VERMA #### [facility] [address] [place] [address] Dr. Jennifer Almanza BAND % 0 % Normal 0-5 [facility] Comment on above: Performed By: #### C BAYRON #### [facility] [address] [place] [address] Dr. Jennifer Almanza BASOM # 0.00 103/ul Normal 0.00-0.10 [facility] Comment on above: Performed By: #### C BAYRON #### [facility] [address] [place] [address] Dr. Jennifer Almanza BASOM % 0.0 % Critically low 0.2-2.0 [facility] Comment on above: Performed By: #### C BCANGEL #### [facility] [address] [place] [address] Dr. Jennifer Almanza BLAST # Normal [facility] Comment on above: Performed By: #### C BAYRON #### [facility] [address] [place] [address] Dr. Jennifer Almanza BLAST % Normal [facility] Comment on above: Performed By: #### C BCANGEL #### [facility] [address] [place] [address] Dr. Jennifer Almanza CORRECTED WBC Normal 4.0-11.0 [facility] Comment on above: Performed By: #### C BAYRON #### [facility] [address] [place] [address] Dr. Jennifer Almanza EOS # 0.00 103/ul Normal 0.00-0.70 [facility] Comment on above: Performed By: #### C BAYRON #### [facility] [address] [place] [address] Dr. Jennifer Almanza EOS% 0.0 % Critically low 0.9-7.0 [facility] Comment on above: Performed By: #### C BAYRON #### [facility] [address] [place] [address] Dr. Jennifer Almanza HCT 32.4 % Critically low 36.0-48.0 [facility] Comment on above: Performed By: #### C BAYRON #### [facility] [address] [place] [address] Dr. Jennifer Almanza HGB 11.7 g/dl Critically low 12.0-16.0 [facility] Comment on above: Performed By: #### C BAYRON #### [facility] [address] [place] [address] Dr. Jennifer Almanza LYMPHM # 1.62 103/ul Normal 1.20-3.80 [facility] Comment on above: Performed By: #### C BAYRON #### [facility] [address] [place] [address] Dr. Jennifer Almanza LYMPHM% 8.0 % Critically low 20.5-60.0 [facility] Comment on above: Performed By: #### C BAYRON #### [facility] [address] [place] [address] Dr. Jennifer Almanza MCH 30.8 pg Normal 26.7-34.0 [facility] Comment on above: Performed By: #### C BAYRON #### [facility] [address] [place] [address] Dr. Jennifer Almanza MCHC 36.1 g/dl Critically high 29.9-35.2 [facility] Comment on above: Performed By: #### C BAYRON #### [facility] [address] [place] [address] Dr. Jennifer Almanza MCV 85.3 fL Normal 81.0-99.0 [facility] Comment on above: Performed By: #### C BAYRON #### [facility] [address] [place] [address] Dr. Jennifer Almanza METAMYELOCYTE # Normal [facility] Comment on above: Performed By: #### C BAYRON #### [facility] [address] [place] [address] Dr. Jennifer Almanza METAMYELOCYTE % Normal [facility] Comment on above: Performed By: #### C BAYRON #### [facility] [address] [place] [address] Dr. Jennifer Almanza MONOM# 0.81 103/ul Critically high 0.30-0.80 [facility] Comment on above: Performed By: #### C BAYRON #### [facility] [address] [place] [address] Dr. Jennifer Almanza MONOM% 4.0 % Normal 1.7-12.0 [facility] Comment on above: Performed By: #### C BAYRON #### [facility] [address] [place] [address] Dr. Jennifer Almanza MPV 11.8 fL Normal 9.5-13.5 [facility] Comment on above: Performed By: #### C BAYRON #### [facility] [address] [address] [address] Jennifer Almanza MYELOCYTE # Normal [facility] Comment on above: Performed By: #### C BAYRON #### [facility] [address] [address] [address] Jennifer Almanza MYELOCYTE % Normal [facility] Comment on above: Performed By: #### C BCANGEL #### [facility] [address] [address] [address] Jennifer Almanza NRBC Normal [facility] Comment on above: Performed By: #### C BAYRON #### [facility] [address] [address] [address] Jennifer Almanza PLT 142 103/ul Critically low 150-450 [facility] Comment on above: Performed By: #### C BAYRON #### [facility] [address] [address] [address] Jennifer Almanza RBC 3.80 106/ul Critically low 4.20-5.[address] [facility] Comment on above: Performed By: #### C BAYRON #### [facility] [address] [address] [address] Jennifer Almanza RDW 12.7 % Normal 11.0-15.0 [facility] Comment on above: Performed By: #### C BAYRON #### [facility] [address] [address] [address] Jennifer Almanza SEG # 17.78 103/ul Critically high 1.40-6.50 [facility] Comment on above: Performed By: #### C BCANGEL #### [facility] [address] [address] [address] Jennifer Almanza SEG % 88.0 % Critically high 43.0-75.0 [facility] Comment on above: Performed By: #### C BAYRON #### [facility] [address] [address] [address] Jennifer Almanza WBC 20.2 103/ul Critically high 4.0-11.0 [facility] Comment on above: Performed By: #### C BCANGEL #### [facility] [address] [address] [address] Jennifer Almanza CBC AUTO DIFFon 12-04-2022 BASO # 0.0 103/ul Normal 0.0-0.1 [facility] Comment on above: Performed By: #### C BC #### [facility] [address] [place] [address] Dr. Jennifer Almanza Basophils/100 WBC (Bld) 0.2 % Normal 0.2-2.0 [facility] Comment on above: Performed By: #### C BC #### [facility] [address] [place] [address] Dr. Jennifer Almanza EO # 0.0 103/ul Normal 0.0-0.7 [facility] Comment on above: Performed By: #### C BC #### [facility] [address] [place] [address] Dr. Jennifer Almanza Eosinophils/100 WBC (Bld) 0.0 % Critically low 0.9-7.0 [facility] Comment on above: Performed By: #### C BC #### [facility] [address] [place] [address] Dr. Jennifer Almanza Erythrocyte distribution width (RBC) [Ratio] 12.6 % Normal 11.0-15.0 [facility] Comment on above: Performed By: #### C BC #### [facility] [address] [place] [address] Dr. Jennifer Almanza Hematocrit (Bld) [Volume fraction] 40.6 % Normal 36.0-48.0 [facility] Comment on above: Performed By: #### C BC #### [facility] [address] [place] [address] Dr. Jennifer Almanza Hemoglobin (Bld) [Mass/Vol] 14.6 g/dL Normal 12.0-16.0 [facility] Comment on above: Performed By: #### C BC #### [facility] [address] [place] [address] Dr. Jennifer Almanza IG # 0.07 10e3/ul Critically high 0.00-0.03 [facility] Comment on above: Performed By: #### C BC #### [facility] [address] [place] [address] Dr. Jennifer Almanza IG % 0.4 % Normal 0.0-0.5 [facility] Comment on above: Performed By: #### C BC #### [facility] [address] [place] [address] Dr. Jennifer Almanza LYMPH # 0.9 103/ul Critically low 1.2-3.8 [facility] Comment on above: Performed By: #### C BC #### [facility] [address] [place] [address] Dr. Jennifer Almanza Lymphocytes/100 WBC (Bld) 5.0 % Critically low 20.5-60.0 [facility] Comment on above: Performed By: #### C BC #### [facility] [address] [place] [address] Dr. Jennifer Alamnza MANUAL DIFF REQ NO Normal [facility] Comment on above: Performed By: #### C BC #### [facility] [address] [place] [address] Dr. Jennifer Almanza MCH (RBC) [Entitic mass] 30.6 pg Normal 26.7-34.0 [facility] Comment on above: Performed By: #### C BC #### [facility] [address] [place] [address] Dr. Jennifer Almanza MCHC (RBC) [Mass/Vol] 36.0 g/dL Critically high 29.9-35.2 [facility] Comment on above: Performed By: #### C BC #### [facility] [address] [place] [address] Dr. Jennifer Almanza MCV (RBC) [Entitic vol] 85.1 fL Normal 81.0-99.0 [facility] Comment on above: Performed By: #### C BC #### [facility] [address] [place] [address] Dr. Jennifer Almanza MONO # 0.9 103/ul Critically high 0.3-0.8 [facility] Comment on above: Performed By: #### C BC #### [facility] [address] [place] [address] Dr. Jennifer Almanza Monocytes/100 WBC (Bld) 5.3 % Normal 1.7-12.0 [facility] Comment on above: Performed By: #### C BC #### [facility] [address] [place] [address] Dr. Jennifer Almanza NEUT # 15.8 103/ul Critically high 1.4-6.5 [facility] Comment on above: Performed By: #### C BC #### [facility] [address] [place] [address] Dr. Jennifer Almanza Neutrophils/100 WBC (Bld) 89.1 % Critically high 43.0-75.0 [facility] Comment on above: Performed By: #### C BC #### [facility] [address] [place] [address] Dr. Jennifer Almanza Platelet mean volume (Bld) [Entitic vol] 12.0 fL Normal 9.5-13.5 [facility] Comment on above: Performed By: #### C BC #### [facility] [address] [place] [address] Dr. Jennifer Almanza PLT 177 103/ul Normal 150-450 [facility] Comment on above: Performed By: #### C BC #### [facility] [address] [place] [address] Dr. Jennifer Almanza RBC 4.77 106/ul Normal 4.20-5.40 [facility] Comment on above: Performed By: #### C BC #### [facility] [address] [place] [address] Dr. Jennifer Almanza WBC 17.7 103/ul Critically high 4.0-11.0 [facility] Comment on above: Performed By: #### C BC #### [facility] [address] [place] [address] Dr. Jennifer Almanza TYPE AND SCREENon 12-04-2022 TYPE AND SCREEN Negative Normal [facility] Comment on above: Performed By: #### T NS #### [facility] [address] [place] [address] Dr. Jennifer Almanza GROUP B STREP CULTUREon 10-30 S. agalactiae Ag Ql (Unsp spec) Culture Observations: NEGATIVE FOR GROUP B STREPTOCOCCUS. Normal [facility] Comment on above: Performed By: #### G BSCX #### [facility] [address] [place] [address] Dr. Jennifer Almanza CBC AUTO DIFFon 09-12-2022 BASO # 0.0 103/ul Normal 0.0-0.1 [facility] Comment on above: Performed By: #### C BC #### [facility] [address] [place] [address] Dr. Jennifer Almanza Basophils/100 WBC (Bld) 0.2 % Normal 0.2-2.0 [facility] Comment on above: Performed By: #### C BC #### [facility] [address] [place] [address] Dr. Jennifer Almanza EO # 0.1 103/ul Normal 0.0-0.7 [facility] Comment on above: Performed By: #### C BC #### [facility] [address] [place] [address] Dr. Jennifer Almanza Eosinophils/100 WBC (Bld) 1.2 % Normal 0.9-7.0 [facility] Comment on above: Performed By: #### C BC #### [facility] [address] [place] [address] Dr. Jennifer Almanza Erythrocyte distribution width (RBC) [Ratio] 11.8 % Normal 11.0-15.0 [facility] Comment on above: Performed By: #### C BC #### [facility] [address] [place] [address] Dr. Jennifer Almanza Hematocrit (Bld) [Volume fraction] 37.8 % Normal 36.0-48.0 [facility] Comment on above: Performed By: #### C BC #### [facility] [address] [place] [address] Dr. Jennifer Almanza Hemoglobin (Bld) [Mass/Vol] 12.9 g/dL Normal 12.0-16.0 [facility] Comment on above: Performed By: #### C BC #### [facility] [address] [address] [address] Jennifer Almanza IG # 0.03 10e3/ul Normal 0.00-0.03 [facility] Comment on above: Performed By: #### C BC #### [facility] [address] [address] [address] Jennifer Almanza IG % 0.4 % Normal 0.0-0.5 [facility] Comment on above: Performed By: #### C BC #### [facility] [address] [place] [address] Dr. Jennifer Almanza LYMPH # 1.1 103/ul Critically low 1.2-3.8 [facility] Comment on above: Performed By: #### C BC #### [facility] [address] [place] [address] Dr. Jennifer Almanza Lymphocytes/100 WBC (Bld) 13.6 % Critically low 20.5-60.0 [facility] Comment on above: Performed By: #### C BC #### [facility] [address] [place] [address] Dr. Jennifer Almanza MANUAL DIFF REQ NO Normal [facility] Comment on above: Performed By: #### C BC #### [facility] [address] [place] [address] Dr. Jennifer Almanza MCH (RBC) [Entitic mass] 30.5 pg Normal 26.7-34.0 [facility] Comment on above: Performed By: #### C BC #### [facility] [address] [place] [address] Dr. Jennifer Almanza MCHC (RBC) [Mass/Vol] 34.1 g/dL Normal 29.9-35.2 [facility] Comment on above: Performed By: #### C BC #### [facility] [address] [place] [address] Dr. Jennifer Almanza MCV (RBC) [Entitic vol] 89.4 fL Normal 81.0-99.0 [facility] Comment on above: Performed By: #### C BC #### [facility] [address] [place] [address] Dr. Jennifer Almanza MONO # 0.4 103/ul Normal 0.3-0.8 [facility] Comment on above: Performed By: #### C BC #### [facility] [address] [place] [address] Dr. Jennifer Almanza Monocytes/100 WBC (Bld) 5.0 % Normal 1.7-12.0 [facility] Comment on above: Performed By: #### C BC #### [facility] [address] [place] [address] Dr. Jennifer Almanza NEUT # 6.5 103/ul Normal 1.4-6.5 [facility] Comment on above: Performed By: #### C BC #### [facility] [address] [place] [address] Dr. Jennifer Almanza Neutrophils/100 WBC (Bld) 79.6 % Critically high 43.0-75.0 [facility] Comment on above: Performed By: #### C BC #### [facility] [address] [place] [address] Dr. Jennifer Almanza Platelet mean volume (Bld) [Entitic vol] 9.3 fL Critically low 9.5-13.5 [facility] Comment on above: Performed By: #### C BC #### [facility] [address] [place] [address] Dr. Jennifer Almanza PLT 234 103/ul Normal 150-450 [facility] Comment on above: Performed By: #### C BC #### [facility] [address] [place] [address] Dr. Jennifer Almanza RBC 4.23 106/ul Normal 4.20-5.40 [facility] Comment on above: Performed By: #### C BC #### [facility] [address] [place] [address] Dr. Jennifer Almanza WBC 8.2 103/ul Normal 4.0-11.0 [facility] Comment on above: Performed By: #### C BC #### [facility] [address] [place] [address] Dr. Jennifer Almanza GLUCOSE - 1HRon 12-16-2022 Glucose [Mass/Vol] 92 mg/dL Normal 74-106 [facility] Comment on above: Performed By: #### H CVPCRR #### [facility] [address] [place] [address] Dr. Jennifer Almanza PAP ACOG PANEL 2: 21 to 29on 09-02-[address] [facility] Comment on above: Performed By: #### [id number] #### [facility] [address] [place] [address] Dr. Jennifer Almanza Age Gdln ACOG Testing 21-29 [facility] Comment on above: Performed By: #### [id number] #### [facility] [address] [place] [address] Dr. Jennifer Almanza DIAGNOSIS: Comment [facility] Comment on above: Result Comment: NEGA TIVE FOR INTRAEPITHELIAL LESION OR MALIGNANCY. Performed By: #### [id number] #### [facility] [address] [place] [address] Dr. Jennifer Almanza Methodology: Comment [facility] Comment on above: Result Comment: This liquid based ThinPrep(R) pap test was screened with the use of an image guided system. Performed By: #### [id number] #### [facility] [address] [place] [address] Dr. Jennifer Almanza Note: Comment [facility] Comment on above: Result Comment: The Pap smear is a screening test designed to aid in the detection of premalignant and malignant conditions of the uterine cervix. It is not a diagnostic procedure and should not be used as the sole means of detecting cervical cancer. Both false-positive and false-negative reports do occur. . Performed By: #### [id number] #### [facility] [address] [place] [address] Dr. Jennifer Almanza Performed by: Comment Normal [facility] Comment on above: Result Comment: Tan Mitchell, Buttoner (ASCP) Performed By: #### [id number] #### [facility] [address] [place] [address] Dr. Jennifer Almanza Reflex Criteria: Comment Normal [facility] Comment on above: Result Comment: The HPV DNA reflex criteria were not met with this specimen result therefore, no HPV testing was performed. . Performed By: #### [id number] #### [facility] [address] [address] [address] Jennifer Almanza Specimen adequacy: Comment Normal [facility] Comment on above: Result Comment: Sati sfactory for evaluation. No endocervical component is identified. Performed By: #### [id number] #### [facility] [address] [address] [address] Jennifer Almanza CHLAMYDIA/GONOCOCCUS PEPE (SW AB/URINE/PAPon 08-29-2022 Chlamydia trachomatis, PEPE Negative Normal Negative [facility] Comment on above: Performed By: #### H CVPCRR #### [facility] [address] [place] [address] Dr. Jennifer Almanza Neisseria gonorrhoeae, PEPE Negative Normal Negative [facility] Comment on above: Performed By: #### H CVPCRR #### [facility] [address] [address] [address] Jennifer Almanza VAGINITIS/VAGINOSIS DNA PROB Gamaliel 08-28-2022 Huong species Positive Abnormal Negative [facility] Comment on above: Performed By: #### H CVPCRR #### [facility] [address] [place] [address] Dr. Jennifer Almanza Gardnerella vaginalis Negative Normal Negative [facility] Comment on above: Performed By: #### H CVPCRR #### [facility] [address] [place] [address] Dr. Jennifer Almanza Trichomonas vaginalis Negative Normal Negative [facility] Comment on above: Performed By: #### H CVPCRR #### [facility] [address] [place] [address] Dr. Jennifer Almanza US PREG ANATOMY SINGLEon US PREG ANATOMY SINGLE EXAMINATION: US P REG ANATOMY SINGLE HISTORY: anatomy study COMPARISON: No relevant comparison available. TECHNIQUE: Transabdominal sonographic examination was performed for obstetrical and evaluation. FINDINGS: Number: 1 Heart Rate: 150.0 bpm H.B. /min Amniotic Fluid Volume: Subjectively normal Placental Location: ANTERIOR with lower margin 6.5 cm from os Cervix Length: 4.6 cm, closed. ANATOMY: Normal Structures -cerebellum, choroid plexus, cisterna magna, lateral cerebral ventricles, orbits, midline falx, hard palate, four-chamber heart, RVOT, LVOT, stomach, kidneys, bladder, umbilical cord insertion into abdomen, three-vessel cord, cervical spine, thoracic spine, lumbar spine, sacral spine, right upper extremity, left upper extremity, right lower extremity, left lower extremity. SUBOPTIMALLY SEEN: None ABNORMALITIES: None BIOMETRY: BPD: 5.3 cm 22 weeks 1 days HC: 19.9 cm 22 weeks 1 days AC: 16.9 cm 21 weeks 6 days FL: 3.9 cm 22 weeks 3 days EFW:478.1 grams; 91% FL/AC: 23.0 FL/BPD: 73.1 HC/AC: 1.2 GESTATIONAL AGE: Age by EDC: 21 weeks 1 days CLARISSA by EDC: 12/07/2022 Age by current US: 22 weeks 1 days CLARISSA by current US: 11/30/2022 IMPRESSION: 1. Single live intrauterine with growth detailed above. Electronically authenticated by: GM ROMERO Date: 2022-07-29 06:06 Normal [facility] HEP B SURFACE ANTIGEN SCREEN on 05-09-2022 HBsAg Screen Negative Normal Negative [facility] Comment on above: Performed By: #### H BSANS #### [facility] [address] [place] [address] Dr. Jennifer Almanza HEPATITIS C VIRUS AB W/ REFL EX QUANTon 05-09-2022 HCV AB <0.1 Normal 0.0-0.9 [facility] Comment on above: Performed By: #### H CVPCRR #### [facility] [address] [place] [address] Dr. Jennifer Almanza Interpretation: Comment Normal [facility] Comment on above: Result Comment: Nega tive Not infected with HCV, unless recent infection is suspected or other evidence exists to indicate HCV infection. Performed By: #### H CVPCRR #### [facility] [address] [place] [address] Dr. Jennifer Almanza HIV 1 AND 2 WITH REFLEXon HIV Screen 4th Generation wRfx Non-Reactive Normal Non Reactive [facility] Comment on above: Result Comment: HIV Negative HIV-1/HIV-2 antibodies and HIV-1 p24 antigen were NOT detected. There is no laboratory evidence of HIV infection. Performed By: #### H CVPCRR #### [facility] [address] [place] [address] Dr. Jennifer Almanza RPR QUANTon 05-09-2022 Rapid Plasma Reagin, Quant Non-Reactive Normal NonRea<1:1 [facility] Comment on above: Result Comment: Plea se Note: This test does not meet current guidelines for screening and diagnosis of syphilis. This test is intended for following treatment response in patients being treated for syphilis infection. To screen for syphilis infection, a reflex cascade that includes both RPR and a treponema-specific assay should be utilized, such as Treponema pallidum (Syphilis) Screening [place] (159194) or Rapid Plasma Reagin (RPR) Test With Reflex to Quantitative RPR and Confirmatory Treponema pallidum Antibodies (119054). Performed By: #### R PRQ #### [facility] [address] [place] [address] Dr. Jennifer Almanza RUBELLA AB IGGon 05-09-2022 Rubella Antibodies, IgG 4.48 index Normal Immune >0.99 [facility] Comment on above: Result Comment: Non- immune <0.90 Equivocal 0.90 - 0.99 Immune >0.99 Performed By: #### H CVPCRR #### [facility] [address] [place] [address] Dr. Jennifer Almanza CBC AUTO DIFFon 05-08-2022 BASO # 0.0 103/ul Normal 0.0-0.1 [facility] Comment on above: Performed By: #### C BC #### [facility] [address] [place] [address] Dr. Jennifer Almanza Basophils/100 WBC (Bld) 0.5 % Normal 0.2-2.0 [facility] Comment on above: Performed By: #### C BC #### [facility] [address] [place] [address] Dr. Jennifer Almanza EO # 0.1 103/ul Normal 0.0-0.7 [facility] Comment on above: Performed By: #### C BC #### [facility] [address] [place] [address] Dr. Jennifer Almanza Eosinophils/100 WBC (Bld) 1.7 % Normal 0.9-7.0 [facility] Comment on above: Performed By: #### C BC #### [facility] [address] [place] [address] Dr. Jennifer Almanza Erythrocyte distribution width (RBC) [Ratio] 11.9 % Normal 11.0-15.0 [facility] Comment on above: Performed By: #### C BC #### [facility] [address] [place] [address] Dr. Jennifer Almanza Hematocrit (Bld) [Volume fraction] 38.4 % Normal 36.0-48.0 [facility] Comment on above: Performed By: #### C BC #### [facility] [address] [place] [address] Dr. Jennifer Almanza Hemoglobin (Bld) [Mass/Vol] 13.3 g/dL Normal 12.0-16.0 [facility] Comment on above: Performed By: #### C BC #### [facility] [address] [place] [address] Dr. Jennifer Almanza IG # 0.01 10e3/ul Normal 0.00-0.03 [facility] Comment on above: Performed By: #### C BC #### [facility] [address] [place] [address] Dr. Jennifer Almanza IG % 0.2 % Normal 0.0-0.5 [facility] Comment on above: Performed By: #### C BC #### [facility] [address] [place] [address] Dr. Jennifer Almanza LYMPH # 1.6 103/ul Normal 1.2-3.8 [facility] Comment on above: Performed By: #### C BC #### [facility] [address] [place] [address] Dr. Jennifer Almanza Lymphocytes/100 WBC (Bld) 25.8 % Normal 20.5-60.0 [facility] Comment on above: Performed By: #### C BC #### [facility] [address] [place] [address] Dr. Jennifer Almanza MANUAL DIFF REQ NO Normal [facility] Comment on above: Performed By: #### C BC #### [facility] [address] [place] [address] Dr. Jennifer Almanza MCH (RBC) [Entitic mass] 30.8 pg Normal 26.7-34.0 [facility] Comment on above: Performed By: #### C BC #### [facility] [address] [place] [address] Dr. Jennifer Almanza MCHC (RBC) [Mass/Vol] 34.6 g/dL Normal 29.9-35.2 [facility] Comment on above: Performed By: #### C BC #### [facility] [address] [place] [address] Dr. Jennifer Almanza MCV (RBC) [Entitic vol] 88.9 fL Normal 81.0-99.0 [facility] Comment on above: Performed By: #### C BC #### [facility] [address] [place] [address] Dr. Jennifer Almanza MONO # 0.5 103/ul Normal 0.3-0.8 [facility] Comment on above: Performed By: #### C BC #### [facility] [address] [place] [address] Dr. Jennifer Almanza Monocytes/100 WBC (Bld) 8.1 % Normal 1.7-12.0 [facility] Comment on above: Performed By: #### C BC #### [facility] [address] [place] [address] Dr. Jennifer Almanza NEUT # 4.0 103/ul Normal 1.4-6.5 [facility] Comment on above: Performed By: #### C BC #### [facility] [address] [place] [address] Dr. Jennifer Almanza Neutrophils/100 WBC (Bld) 63.7 % Normal 43.0-75.0 [facility] Comment on above: Performed By: #### C BC #### [facility] [address] [place] [address] Dr. Jennifer Almanza Platelet mean volume (Bld) [Entitic vol] 9.4 fL Critically low 9.5-13.5 [facility] Comment on above: Performed By: #### C BC #### [facility] [address] [place] [address] Dr. Jennifer Almanza PLT 217 103/ul Normal 150-450 [facility] Comment on above: Performed By: #### C BC #### [facility] [address] [place] [address] Dr. Jennifer Almanza RBC 4.32 106/ul Normal 4.20-5.40 [facility] Comment on above: Performed By: #### C BC #### [facility] [address] [place] [address] Dr. Jennifer Almanza WBC 6.3 103/ul Normal 4.0-11.0 [facility] Comment on above: Performed By: #### C BC #### [facility] [address] [place] [address] Dr. Jennifer Almanza CULTURE URINEon 05-08-2022 CULTURE URINE Culture Observations : LIGHT GROWTH OF MIXED GENITAL MICHAEL. NO POTENTIAL PATHOGENS SEEN. Normal [facility] Comment on above: Performed By: #### H CVPCRR #### [facility] [address] [place] [address] Dr. Jennifer Almanza GLYCOHEMOGLOBIN A1Con 2021 ADA RECOMMENDATION SEE BELOW Normal [facility] Comment on above: Result Comment: ADA RECOMMENDED LIMIT 4.0 - 6.0 ADA THERAPEUTIC TARGET < 7.0 ACTION SUGGESTED > 7.0 Performed By: #### H CVPCRR #### [facility] [address] [place] [address] Dr. Jennifer Almanza Glucose [Mass/Vol] 80 mg/dL Normal [facility] Comment on above: Performed By: #### H CVPCRR #### [facility] [address], [place] [address] Dr. Jennifer Almanza HbA1c (Bld) [Mass fraction] 4.4 % Critically low 4.5-6.2 [facility] Comment on above: Performed By: #### H CVPCRR #### [facility] [address], [place] [address] Dr. Jennifer Almanza TYPE AND SCREENon 05-08-2022 TYPE AND SCREEN Negative Normal [facility] Comment on above: Performed By: #### H CVPCRR #### [facility] [address], [place] [address] Dr. Jennifer Almanza US PREG TVon 05-02-2022 US PREG TV EXAMINATION: US PREG TV HISTORY: Missed period COMPARISON: No relevant comparison available. FINDINGS: GESTATIONAL SAC: Present and normal appearing. POLE: Present and normal appearing. YOLK SAC: Present. CARDIAC: Present. UTERUS: Normal size and appearance. OVARIES: Right: Normal. Left: Corpus lutein cyst CERVIX: 4.4 cm in length and closed. CUL-DE-SAC: Normal. OTHER: None. AGE BY LMP: 9 weeks 6 days CLARISSA BY LMP: 11/29/2022 AGE BY US CRL: 8 weeks 5 days CLARISSA BY US CRL: 12/07/2022 IMPRESSION: 1. Single live intrauterine . Electronically authenticated by: GM ROMERO Date: 2022-05-02 16:03 Normal [facility] Body fluid albumin measureme nt (mass/volume)Ordered By: Alisia Burciaga on 03-10-2022 Albumin (Body fld) [Mass/Vol] 4.5 g/dL 3.2-5.5 [facility] Creatinine and Glomerular fi ltration rate.predicted panel (S/P/Bld)Ordered By: Alisia Burciaga on 03-10-2022 Creatinine [Mass/Vol] 0.64 mg/dL 0.44-1.03 [facility] Estimated glomerular filtrat ion rate (GFR) non- AmericanOrdered By: Alisia Burciaga on 03-10-2022 GFR/1.73 sq M.predicted among non-blacks MDRD (S/P/Bld) [Vol rate/Area] > 60 mL/Min [facility] No Panel InformationOrdered By: Alisia Burciaga on 03-10-2022 25-Hydroxy Vitamin D Total 28.9 ng/mL 30-100 [facility] Comment on above: VITAMIN D STATUS 25( [place])VITAMIN D RANGE (ng/mL) Deficient <20 Insufficient 20 to <30 Sufficient 30 to 100 Reference: Vanessa MF,Nydia NC, Marisol HESS, et al. Evaluation,treatment, and prevention of vitamin D deficiency; an Endocrine Society clinical practice guideline. JCEM. 2010; 96(7):1911-30. Estimated GFR () > 60 mL/Min [facility] Comment on above: GFR estimated refere nce range: According to KDOQI guidelines, <60 ml/min/1.73m2 is sufficient to diagnose a patient with chronic kidney disease. Pharmacy Creatinine Clearance (Chem N/A [facility] Parathyroid Hormone Intacton 03-10-2022 Parathyroid Hormone Intact 50.9 pg/mL Normal 12-88 [facility] Comment on above: Result Comment: PERF ORMED BY: [facility] [address] [place] [address] PATHOLOGIST GARMENT MENDER TARAS MA M.D. Performed By: #### R ENAL, PTH, [id number] #### [facility] [address] [place] [address] Phosphate [Mass/volume] in S celsa or PlasmaOrdered By: Alisia Burciaga on 03-10-2022 Phosphate [Mass/Vol] 3.3 mg/dL 2.5-4.6 [facility] Renal Function Panelon 03-10 Albumin [Mass/Vol] 4.5 g/dL Normal 3.2-5.5 [facility] Comment on above: Performed By: #### R ENAL, PTH, [id number] #### [facility] [address] [place] [address] [place] Calcium [Mass/Vol] 9.9 mg/dL Normal 8.2-10.2 [facility] Comment on above: Performed By: #### R ENAL, PTH, [id number] #### [facility] [address] Chloride [Moles/Vol] 102 mmol/L Normal 95-114 [facility] Comment on above: Performed By: #### R ENAL, PTH, [id number] #### [facility] [address] CO2 [Moles/Vol] 25.2 mmol/L Normal 22.0-30.[address] [facility] Comment on above: Performed By: #### R ENAL, PTH, [id number] #### [facility] [address] Creatinine [Mass/Vol] 0.64 mg/dL Normal 0.44-1.03 [facility] Comment on above: Performed By: #### R ENAL, PTH, [id number] #### [address] Estimated GFR ( Rachel > 60 [facility] Comment on above: Result Comment: GFR estimated reference range: According to KDOQI guidelines, <60 ml/min/1.73m2 is sufficient to diagnose a patient with chronic kidney disease. Performed By: #### R ENAL, PTH, [id number] #### [address] Estimated GFR (Non- Am > 60 [facility] Comment on above: Performed By: #### R ENAL, PTH, [id number] #### [address] Glucose [Mass/Vol] 88 mg/dL Normal 70-100 [facility] Comment on above: Result Comment: Funk om Glucose Reference Range is dependent on time and content of last meal. Glucose of more than 200 mg/dL in a nonstressed, ambulatory subject supports the diagnosis of Diabetes Mellitus. ADA recommended reference range Performed By: #### R ENAL, PTH, [id number] #### [address] Phosphate [Mass/Vol] 3.3 mg/dL Normal 2.5-4.6 [facility] Comment on above: Performed By: #### R ENAL, PTH, [id number] #### [facility] [address] Potassium [Moles/Vol] 4.6 mmol/L Normal 3.5-5.1 [facility] Comment on above: Performed By: #### R ENAL, PTH, [id number] #### [facility] [address] Sodium [Moles/Vol] 137 mmol/L Normal 136-146 [facility] Comment on above: Performed By: #### R ENAL, PTH, [id number] #### [facility] [address] Urea nitrogen [Mass/Vol] 11 mg/dL Normal 9-23 [facility] Comment on above: Performed By: #### R ENAL, PTH, [id number] #### [facility] [address] Serum or plasma calcium robson urement (mass/volume)Ordered By: Alisia Burciaga on 03-10-2022 Calcium [Mass/Vol] 9.9 mg/dL 8.2-10.2 [facility] Serum or plasma chloride kathe surement (moles/volume)Ordered By: Alisia Burciaga on 03-10-2022 Chloride [Moles/Vol] 102 mmol/L 95-114 [facility] Serum or plasma glucose robson urement (mass/volume)Ordered By: Alisia Burciaga on 03-10-2022 Glucose [Mass/Vol] 88 mg/dL 70-100 [facility] Comment on above: ADA recommended refe rence range Random Glucose Reference Range is dependent on time and content of last meal. Glucose of more than 200 mg/dL in a nonstressed, ambulatory subject supports the diagnosis of Diabetes Mellitus. Serum or plasma intact parat hyroid hormone measurement (mass/volume)Ordered By: Alisia Burciaga on 03-10-2022 Parathyrin.intact [Mass/Vol] 50.9 pg/mL [facility] Serum or plasma potassium me asurement (moles/volume)Ordered By: Alisia Burciaga on 03-10-2022 Potassium [Moles/Vol] 4.6 mmol/L 3.5-5.1 [facility] Serum or plasma sodium measu rement (moles/volume)Ordered By: Alisia Burciaga on 03-10-2022 Sodium [Moles/Vol] 137 mmol/L 136-146 [facility] Serum or plasma total carbon dioxide measurement (moles/volume)Ordered By: Alisia Burciaga on 03-10-2022 CO2 [Moles/Vol] 25.2 mmol/L 22.0-30.[address] [facility] Serum or plasma urea nitroge n measurement (mass/volume)Ordered By: Alisia Burciaga on 03-10-2022 Urea nitrogen [Mass/Vol] 11 mg/dL 9-23 [facility] Vitamin D 25 Hydroxy Totalon 03-10-2022 Vitamin D 25 Hydroxy Total 28.9 ng/mL Low 30-100 [facility] Comment on above: Result Comment: MIGDALIA MIN D STATUS 25(OH)VITAMIN D RANGE (ng/mL) Deficient <20 Insufficient 20 to <30 Sufficient 30 to 100 Reference: Vanessa MF,Nydia NC, Marisol HESS, et al. Evaluation,treatment, and prevention of vitamin D deficiency; an Endocrine Society clinical practice guideline. JCEM. 2010; 96(7):1911-30. Performed By: #### R ENAL, PTH, [id number] #### [facility] [address] [place] [address] HCG, Beta Quantitativeon HCG.beta subunit Qn m[IU]/mL MG-BOILER OR ENGINE OPERATOR Nurse Midwifery-Christiano Holloway DO Work Phone: Comment on above: Low-level positive H CG results can be seen in early , in blaise- or post-menopausal females due to normal pituitary HCG production, or with analytic interference. Repeat testing in 48-72 hours can aid in assessing for as results should double in this time period. FSH measurement is recommended in blaise- or post-menopausal females as concurrent elevation of FSH can support pituitary production as the source of the HCG elevation.. Total HCG measurement is performed using the Lida Azeb Access Immunoassay which detects intact HCG and free beta HCG subunit. This test is not indicated for use as a tumor marker. HCG testing is performed using a different test methodology at [facility] than other legacy [facility]. Direct result comparison should only be made within the same method. REF VALUESNON FEMALE <5MALES <5 HCG,BETA-QUANTITATIVEon 05-2 -2021 HCG,BETA-QUANTITATIVE <2 Normal [facility] Comment on above: Result Comment: Low- level positive HCG results can be seen in early , in blaise- or post-menopausal females due to normal pituitary HCG production, or with analytic interference. Repeat testing in 48-72 hours can aid in assessing for as results should double in this time period. FSH measurement is recommended in blaise- or post-menopausal females as concurrent elevation of FSH can support pituitary production as the source of the HCG elevation. . Total HCG measurement is performed using the Lida [place] Access Immunoassay which detects intact HCG and free beta HCG subunit. This test is not indicated for use as a tumor marker. HCG testing is performed using a different test methodology at [facility] than other legacy [facility]. Direct result comparison should only be made within the same method. REF VALUES NON FEMALE <5 MALES <5 Performed By: #### H QU #### [address] [id number] PHQ-2 VITALSon 02-14-2022 Adult depression screening assessment No [facility] [place] [id number] M DO Work Phone: Fall risk assessment a) No falls within the last year [facility] [place] [address] M DO Work Phone: Last menstrual period start date [id number] [facility] [place] [address] M DO Work Phone: Vital Signs Date Time Vital Sign Value Performing Clinician Facility 03-23-2022 11:05-0400 Body height 157.48 cm Sarah Dominguez Other [facility] Other 03-23-2022 11:05-0400 Body mass index (BMI) [Ratio] 24.51 kg/m2 Sarah Dominguez Other [facility] Other 03-23-2022 11:05-0400 Body weight 60.78 kg Sarah Dominguez Other [facility] Other 03-23-2022 11:05-0400 Diastolic blood pressure 85 mm[Hg] Sarah Dominguez Other [facility] Other 03-23-2022 11:05-0400 Systolic blood pressure 129 mm[Hg] Sarah Dominguez Other [facility] Other 02-14-2022 14:22-0400 Body height 157.48 cm Sailaja Ren Work Phone: [facility] [id number] M DO Work Phone: 02-14-2022 14:22-0400 Body mass index (BMI) [Ratio] 24.55 kg/m2 Sailaja Ren Work Phone: [facility] [address] M DO Work Phone: 02-14-2022 14:22-0400 Body surface area Derived from formula 1.61 m2 Sailaja Ren Work Phone: [facility] [address] M DO Work Phone: 02-14-2022 14:22-0400 Body weight 60.9 kg Sailaja Ren Work Phone: [facility] [address] M DO Work Phone: 02-14-2022 14:22-0400 Diastolic blood pressure 62 mm[Hg] Sailaja Frenchwagner Work Phone: [facility] [address] M DO Work Phone: 02-14-2022 14:22-0400 Systolic blood pressure 126 mm[Hg] Sailaja Tiffanie Ren Work Phone: [facility] [address] M DO Work Phone: 02-14-2022 14:22-0400 0 1 Sailaja Moreno Gela Work Phone: [facility] [address] M DO Work Phone: Comment on above: [employer] Encounters Encounter Date Encounter Type Care Provider Facility Start: 07-14-2024 End: 07-14-2024 Clinisync Result Encounter Reed Betancur DO Work Phone: [facility] External Department Unsolicited Start: 07-14-2024 End: 07-14-2024 Clinisync Result Encounter Reed Betancur DO Work Phone: [facility] External Department Unsolicited Start: 11-16-2023 End: 11-16-2023 ambulatory Reed Betancur Facility:[facility] Start: 11-16-2023 End: 11-16-2023 ambulatory Reed Pipe [facility] Work Phone: Start: 11-16-2023 End: 11-16-2023 Departed Referred Reed Pipe Work Phone: [facility] Start: 12-08-2022 ambulatory TOMA REN Facil ity:[facility]1 Start: 12-04-2022 End: 12-06-2022 Evaluation and management of inpatient DR SLICK MANDUJANO . Facility:[facility] Start: 11-20-2022 End: 11-20-[address] REED BETANCUR . Facility:[facility] Start: 09-12-2022 End: 09-13-[address] REED BETANCUR . Facility:[facility] Start: 08-26-2022 End: 08-26-[address] REED BETANCUR . Facility:[facility] Start: 07-28-2022 End: 07-29-2022 ambulatory TOMA REN Facility:[facility] Start: 05-08-2022 End: 05-09-2022 ambulatory TOMA REN Facility:[facility] Start: 05-03-2022 ambulatory TOMA REN Facil ity:[facility] Start: 05-02-2022 End: 05-03-[address] REED BETANCUR . Facility:[facility] Start: 03-23-2022 End: 03-23-2022 ambulatory Sarah Dominguez Other [facility] Other Start: 03-23-2022 Office outpatient ne w 20 minutes Sarah Dominguez [facility] Start: 03-10-2022 End: 03-10-2022 Patient encounter procedure [facility] Start: 02-26-[address] SLICK MANDUJANO . Fa cility:[facility]1 Start: 02-15-2022 Chart Update Sailajademi Agosto lz Work Phone: [facility] M DO Work Phone: Start: 02-14-2022 Office outpatient ne w 30 minutes Sailaja Ren Work Phone: [facility] [id number] M DO Work Phone: Procedures Date Procedure Procedure Detail Performing Clinician Start: 07-14-2024 [facility] PREG QUANT HCG Core y Pipe DO Work Phone: Start: 12-04-2022 Delivery of Products of Conception, External Approach DR REED BETANCUR . Start: 12-04-2022 Repair Perineum Skin , External Approach DR REED BETANCUR . Payers Date Payer Category Payer Unknown [id number] 2.16.84 [id number] 1995 Unknown [id number] 2.16.84 [id number] 1996 Unknown [id number] 2.16.84 [id number] 1996 Unknown [id number] 2.16.84 [id number] 1996 Unknown [id number] 2.16.84 [id number] 1996 Unknown [id number] 2.16.84 [id number] 1996 Unknown [id number] 2.16.84 [id number] 1996 Unknown [id number] 2.16.84 [id number] 1996 Unknown [id number] 2.16.84 [id number] 1996 Unknown [id number] 2.16.84 [id number] 1958 Self-pay [id number] 1958 Unknown [id number] Unknown ANTHEM Social History Date Type Detail Facility Tobacco smoking status [facility] Unknown if ever smoked [facility] Work Phone: Start: 1995 Sex Assigned At Female F [facility] Sex Assigned At [facility] Other Tobacco smoking status [facility] Tobacco smoking consumption unknown [facility] Start: 1995 Sex assigned at Not on file [facility] Evaluation note 03-23-2022 Note Date & Type Note Facility 03-23-2022 Evaluation note Encounter Date Diagnosis Assessment Notes Feb, Contact dermatitis and eczema (ICD-10 - L25.9) Drink plenty fluids, get plenty of rest. Take the prednisone as prescribed until gone. Apply A&E ointment to your left hand for moisture. You may take Benadryl for itching. Follow-up with your family physician for recheck later this week. Go to the ER for worsening symptoms or concerns. Feb, Other Eczema material was printed, Contact dermatitis home care material was printed [facility] Other Clinical Note 02-14-2022 Note Date & Type Note Facility 02-14-2022 Note Orders HCG, Beta Quantitative; Status:In Progress - Specimen/Data Collected,Retrospective Authorization; Done: 14Feb2022 Provider Impressions New pt presents today to discuss her situation. Pt's LMP was 09/09/21 w/ a history of monthly cycles. She had a positive test . Then had bleeding in early October, but continued to have positive urine HCGs. Pt was seeing her FOB's mother who is a pipe layer who heard a heartbeat w/ a doppler and her abdomen was getting bigger. Three days ago, pt went to a doctor out near her home in [place] and was told that she was not . An ultrasound and test were negative. No info was found in the [facility]. We discussed the fact that most likely her bleeding in Oct was a SAB of an early and that her HCGs took a while to come down to negative. To give her closure, a BHCG will be done today and she can plan for a future new . Advised to take a daily PNV and signs of fertility reviewed. Impression:. complete SAB. Diagnostic Plan:. HCG. Treatment Plan:. f/u as needed. Appointment Duration:. 20 minutes. minutes; greater than half of the time was spent on counseling. Chief Complaint Pt. states that she hasn?t had a period since 09/09/2021. Pt. states that she took multiple test and they came back positive. Pt. had a ultrasound appointment where a heartbeat was found. Pt. states that her stomach was growing like a normal . Pt. states that on Thursday she went to her doctor's appointment and there was no heartbeat. Pt. states that her in home and in office test came back negative. Active Problems Problems Missed menses (626.4) (N92.6) care (V22.1) (Z34.90) Vitals Vital Signs Recorded: 14Feb2022 02:22PM [id number] Oguqxmube90 Height5 ft 2 in Lblqib849 lb 4 oz BMI Lmgarkylub99.55 kg/m2 BSA Calculated1.61 PHQ-2 #1. Over the last 2 weeks have you felt down, depressed or hopeless? (If yes, answer PHQ-9 below)No PHQ-2 #2. Over the last 2 weeks have you felt little interest or pleasure in doing things? (If yes, answer PHQ-9 below)No Fall Screeninga) No falls within the last year [id number] Pain Scale0 Physical Exam Constitutional: Alert and in no acute distress. Well developed, well nourished Eyes: Normal external exam - nonicteric sclera, extraocular movements intact (EOMI) and no ptosis. Pulmonary: No respiratory distress Abdomen: soft nontender; no abdominal mass palpated, no organomegaly and no hernias Signatures Electronically signed by : KOURTNEY Cummings; Feb 14 2022 3:16PM EST (Author) [employer] Evaluation note Note Date & Type Note Facility Evaluation note No assessment information availa [facility] Work Phone: History general Narrative - Reported Note Date & Type Note Facility History general Narrative - Reported Type Surgical History right ear tube placed [facility] Other Chief Complaint Pt. states that she hasn t had a period since 09/09/2021. Pt. states that she took multiple test and they came back positive. Pt. had a ultrasound appointment where a heartbeat was found. Pt. states that her stomach was growing like a normal . Pt. states that on Thursday she went to her doctor's appointment and there was no heartbeat. Pt. states that her in home and in office test came back negative. Summary Purpose Family History No Family History Records FoundNo Family History Records FoundNo Family History Records FoundNo Family History Records FoundNo Family History Records FoundNo Family History Records Found Advance Directives Advance Directive Response Recorded Date/ Time Advance Directives No March 10 11:04am Chief Complaint and Reason for Visit Chief Complaint E83.52 E55.9 E21.11 Chief Complaint Unknown Additional Source Comments INFORMATION SOURCE (unrecogn ized section and content) DATE CREATED AUTHOR 02/16/2022 [facility] DATE CREATED AUTHOR AUTHOR'S ORGANIZ ATION 02/16/2022 [employer] DATE CREATED AUTHOR AUTHOR'S ORGANIZ ATION 03/10/2022 [facility] DATE CREATED AUTHOR AUTHOR'S ORGANIZ ATION 02/11/2023 [facility] DATE CREATED AUTHOR AUTHOR'S ORGANIZ ATION 11/17/2023 [facility] DATE CREATED AUTHOR AUTHOR'S ORGANIZ ATION 07/14/2024 [facility] Care Teams (unrecognized sec tion and content) Team Status: Inactive Member Role Status Dates NON STAFF Primary Care Provider Active Alisia Burciaga MD Attending Provider Active Team Status: Active Member Role Status Dates NON STAFF Primary Care Provider Active Team Status: Inactive Member Role Status Dates Reed Betancur Attending Provider Active Start: 2023 End: November 16, 2023 Goals (unrecognized section and content) Goals may be documented in a n alternate sectionNo InformationGoals may be documented in an alternate section REASON FOR VISIT (unrecogniz ed section and content) RASH ALL OVER FOR RECORDS PERTAINING TO PATIENTS WHO ARE OR HAVE BEEN ENROLLED IN A CHEMICAL DEPENDENCY/SUBSTANCEABUSE PROGRAM, SOME INFORMATION MAY BE OMITTED. This clinical summary was aggregated from multiple sources. Caution should be exercised in using it in the provision of clinical care. This summary normalizes information from multiple sources, and as a consequence, information in this document may materially change the coding, format and clinical context of patient data. In addition, data may be omitted in some cases. CLINICAL DECISIONS SHOULD BE BASED ON THE PRIMARY CLINICAL RECORDS. [facility] [employer] provides no warranty or guarantee of the accuracy or completeness of information in this document.
== END 2024-07-29 08:34 | disposition home or self-care (01) ==
LOC: NOMS 08:33
PROVIDERS: Visit Provider Obstetrics & Gynecology
DX: Z34.92 Encounter for supervision of normal pregnancy, unspecified, second trimester (principal)
CPT/HCPCS: 76815; 76817

== ENCOUNTER 2024-08-31 14:20 | Outpatient (OUT) | payer MEDICAID, SELFPAY ==
--- NOTE | 2024-08-31 14:26 | US_ITS ---
[address] [address] Patient Name: NANCY GR MRN: [id number] date: 1995 Sex: F Assigned Patient Location: RAD Current Patient Location: RAD Accession/Order Number: [id number] Exam Date: 08/31/2024 14:30 Report Date: 08/31/2024 15:54 At the request of: REED MARSHALL Procedure: US OB anatomy EXAMINATION: US OB anatomy, US OB cervical length HISTORY: Anatomy COMPARISON: No relevant comparison available. TECHNIQUE: Transabdominal sonographic examination was performed for obstetrical and evaluation. FINDINGS: Number: 1 Heart Rate: 146.74 bpm H.B. /min Amniotic Fluid Volume: Subjectively normal Placental Location: Posterior, grade 0. The placental edge is 1.3 cm from the internal cervical os Cervix Length: 3.40 cm , closed Normal anatomy: Lateral ventricles, cerebellum, posterior fossa, nose, lips, orbits, four-chamber heart, RVOT, LVOT, diaphragm, stomach, kidneys, abdominal cord insertion, bladder, umbilical arteries, three-vessel cord, spine, extremities BIOMETRY: BPD: 4.69 cm; 20 weeks 1 day; 45.20 % HC: 17.05 cm; 19 weeks 5 days; 16.10 % AC: 15.30 cm; 20 weeks 4 days; 51.50 % FL: 3.14 cm; 19 weeks 5 days; 23.90 % EFW:332.88 g; 35.50 %, 12 ounces FL/AC: 20.52 FL/BPD: 66.93 HC/AC: 1.11 GESTATIONAL AGE: Age by EDC: 20 weeks 2 days CLARISSA by EDC: 2025-01-16 Age by current US: 20 weeks 0 days CLARISSA by current US: 2025-01-18 US/US OB anatomy IMPRESSION: Normal anatomy scan *Reference: [facility] Practice Guideline for the performance of Obstetric Ultrasound Examinations, June 28, 2007. Electronically authenticated by: LUCILA CASTILLO Date: 08/31/2024 15:54
--- NOTE | 2024-08-31 14:26 | US_ITS ---
[address] [address] Patient Name: NANCY GR MRN: [id number] date: 1995 Sex: F Assigned Patient Location: RAD Current Patient Location: RAD Accession/Order Number: [id number] Exam Date: 08/31/2024 14:30 Report Date: 08/31/2024 15:54 At the request of: REED MARSHALL Procedure: US OB cervical length EXAMINATION: US OB anatomy, US OB cervical length HISTORY: Anatomy COMPARISON: No relevant comparison available. TECHNIQUE: Transabdominal sonographic examination was performed for obstetrical and evaluation. FINDINGS: Number: 1 Heart Rate: 146.74 bpm H.B. /min Amniotic Fluid Volume: Subjectively normal Placental Location: Posterior, grade 0. The placental edge is 1.3 cm from the internal cervical os Cervix Length: 3.40 cm , closed Normal anatomy: Lateral ventricles, cerebellum, posterior fossa, nose, lips, orbits, four-chamber heart, RVOT, LVOT, diaphragm, stomach, kidneys, abdominal cord insertion, bladder, umbilical arteries, three-vessel cord, spine, extremities BIOMETRY: BPD: 4.69 cm; 20 weeks 1 day; 45.20 % HC: 17.05 cm; 19 weeks 5 days; 16.10 % AC: 15.30 cm; 20 weeks 4 days; 51.50 % FL: 3.14 cm; 19 weeks 5 days; 23.90 % EFW:332.88 g; 35.50 %, 12 ounces FL/AC: 20.52 FL/BPD: 66.93 HC/AC: 1.11 GESTATIONAL AGE: Age by EDC: 20 weeks 2 days CLARISSA by EDC: 2025-01-16 Age by current US: 20 weeks 0 days CLARISSA by current US: 2025-01-18 US/US OB cervical length IMPRESSION: Normal anatomy scan *Reference: [facility] Practice Guideline for the performance of Obstetric Ultrasound Examinations, June 28, 2007. Electronically authenticated by: LUCILA CASTILLO Date: 08/31/2024 15:54
== END 2024-08-31 14:21 | disposition home or self-care (01) ==
LOC: RAD 14:21
PROVIDERS: Visit Provider Obstetrics & Gynecology
DX: Z36.89 Encounter for other specified antenatal screening (principal); Z3A.20 20 weeks gestation of pregnancy
CPT/HCPCS: 76805; 76817

== ENCOUNTER 2024-10-03 13:06 | Outpatient (OUT) | payer MEDICAID, SELFPAY ==
[2024-10-03 13:24] LABS: Basophils Percent Auto 0.2 % (0.2-2.0); Eosinophils Absolute Auto 0.1 10^3/uL (0.0-0.7); Eosinophils Percent Auto 1.2 % (0.9-7.0); Hematocrit 37.6 % (36.0-48.0); Immature Granulocytes Abs Auto 0.05 10^3/uL (0.00-0.03); Immature Granulocytes Pct Auto 0.5 % (0.0-0.5); Lymphocytes Percent Auto 18.9 % (20.5-60.0); Mean Corpuscular HGB Conc 34.6 g/dL (29.9-35.2); Mean Corpuscular Hemoglobin 31.4 pg (26.7-34.0); Mean Corpuscular Volume 90.8 fL (81.0-99.0); Mean Platelet Volume 9.4 fL (9.5-13.5); Monocytes Absolute Auto 0.5 10^3/uL (0.3-0.8); Monocytes Percent Auto 4.7 % (1.7-12.0); Neutrophils Absolute Auto 7.7 10^3/uL (1.4-6.5); Neutrophils Percent Auto 74.5 % (43.0-75.0); Platelet Count 287 10^3/uL (150-450); Red Blood Count 4.14 10^6/uL (4.20-5.40); Red Cell Distribution Width 12.3 % (11.0-15.0); White Blood Count 10.3 10^3/uL (4.0-11.0)
[2024-10-03 13:35] LABS: Estimated Average Glucose 97 mg/dL
[2024-10-03 13:39] LABS: Amphetamine Screen Urine NEGATIVE (NEGATIVE); Barbiturates Screen Urine NEGATIVE (NEGATIVE); Benzodiazepines Screen Urine NEGATIVE (NEGATIVE); Buprenorphine Screen Urine NEGATIVE (NEGATIVE); Cannabinoid Screen Urine NEGATIVE (NEGATIVE); Cocaine Screen Urine NEGATIVE (NEGATIVE); Methadone Screen Urine NEGATIVE (NEGATIVE); Methamphetamines Screen Urine NEGATIVE (NEGATIVE); Opiate Screen Urine NEGATIVE (NEGATIVE); Oxycodone Screen Urine NEGATIVE (NEGATIVE); Phencyclidine Screen Urine NEGATIVE (NEGATIVE); Tricyclic Antidepressant Urine NEGATIVE (NEGATIVE)
[2024-10-04 05:06] LABS: HCV Ab Non Reactive (Non Reactive); HIV Ab/p24 Ag Screen Non Reactive (Non Reactive); Rubella Antibodies, IgG 3.46 index (Immune >0.99)
[2024-10-04 06:07] LABS: HBsAg Screen Negative (Negative)
[2024-10-04 13:08] LABS: Rapid Plasma Reagin, Quant Non Reactive titer (NonRea<1:1)
[2024-10-04 17:29] LABS: BOX Test Reference Lab FIRELANDS
== END 2024-10-03 13:07 | disposition home or self-care (01) ==
LOC: LAB 13:06
PROVIDERS: Visit Provider Obstetrics & Gynecology
DX: Z34.01 Encounter for supervision of normal first pregnancy, first trimester (principal); N92.6 Irregular menstruation, unspecified
CPT/HCPCS: 36415; 80307; 83036; 85025; 86592; 86762; 86803; 86850; 86900; 86901; 87086; 87340; 87389

== ENCOUNTER 2024-11-19 06:46 | Outpatient (OUT) | payer MEDICAID, SELFPAY ==
--- OUTSIDE RECORDS SUMMARY | 2024-11-19 06:48 | XMS_ITS | CCD ---
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 Name Role Phone Sailaja Ren Tiffanie Unavailable NON STAFF Primary Care Provider UnavailMD Alisia Smith Attending Provider Sarah Dominguez Unavailable PIPE ., DR MCBRIDE Consulting Unavailable PIPE ., DR MCBRIDE Attending Unavailable AICHHOLZ, TALENT ENGINEER SAILAJA Primary Care Unavailable PIPE ., DR MCBRIDE Admitting Unavailable ZIEBER, DR GM Rae Consulting Unavailable KARASIK ., DR KRUGER Consulting Unavailabl e KARASIK ., DR KRUGER Attending Unavailabl e AICHHOLZ, TALENT ENGINEER SAILAJA Primary Care Unavailable KARASIK ., DR KRUGER Admitting Unavailabl e PIPE ., DR MCBRIDE Procedure Practitioner Unavail able PIPE ., DR MCBRIDE Consulting Unavailable KARASIK ., DR KRUGER Admitting Unavailabl e KARASIK ., DR KRUGER Attending Unavailabl e AICHHOLZ, TALENT ENGINEER SAILAJA Primary Care Unavailable AICHHOLZ, TALENT ENGINEER SAILAJA Primary Care Unavailable PIPE ., DR MCBRIDE Attending Unavailable PIPE ., DR MCBRIDE Admitting Unavailable AICHHOLZ, TALENT ENGINEER SAILAJA Primary Care Unavailable PIPE ., DR MCBRIDE Attending Unavailable PIPE ., DR MCBRIDE Admitting Unavailable PIPE ., DR MCBRIDE Consulting Unavailable AICHHOLZ, TALENT ENGINEER SAILAJA Primary Care Unavailable PIPE ., DR MCBRIDE Attending Unavailable PIPE ., DR MCBRIDE Admitting Unavailable PIPE ., DR MCBRIDE Consulting Unavailable AICHHOLZ, TALENT ENGINEER SAILAJA Primary Care Unavailable PIPE ., DR MCBRIDE Attending Unavailable PIPE ., DR MCBRIDE Admitting Unavailable PIPE ., DR MCBRIDE Consulting Unavailable AICHHOLZ, TALENT ENGINEER SAILAJA Primary Care Unavailable PIPE ., DR MCBRIDE Attending Unavailable PIPE ., DR MCBRIDE Admitting Unavailable AICHOLZ, TALENT ENGINEER SAILAJA Primary Care Unavailable PIPE ., DR MCBRIDE Attending Unavailable PIPE ., DR MCBRIDE Admitting Unavailable PIPE ., DR MCBRIDE Consulting Unavailable ZIEBER, DR GM Rae Consulting Unavailable AICHHOLZ, TALENT ENGINEER SAILAJA Primary Care Unavailable PIPE ., DR MCBRIDE Attending Unavailable PIPE ., DR MCBRIDE Consulting Unavailable PIPE ., DR MCBRIDE Admitting Unavailable Pipe, Reed Attending Provider [phone] Pipe, Reed Attending Unavailable Pipe, Reed Admitting Unavailable Unavailable Primary Care Provider Unavailkeya e Reed Betancur DO Attending Provider Pipe, Reed Admitting Unavailable Pipe, Reed Attending Unavailable Pipe, Reed Attending Unavailable Pipe, Reed Admitting Unavailable PIPE, REED Attending Unavailable PIPE, REED Attending Unavailable ANA POLO Attending Unavailable PIPE, REED Attending Unavailable ANA POLO Attending Unavailable Allergies Allergy Classification Reported Allergen(s) Allergy Type Date of Onset Reaction(s) Facility (15 sources) Amoxicillin Drug Allergy 4 hives, Unknown [facility] (1 source) Amoxicillin Drug Allergy 3 [facility] Repository (14 sources) Penicillin G Drug Allergy 4 Unknown [facility] (1 source) Amoxicillin Drug Allergy 4 [facility] Repository Medications Current Medications Medication Drug Class(es) Dates Sig (Normalized) Sig (Original) dicyclomine hydrochloride 10 mg oral capsule (1 source) Anticholinergic Start: 10-05-2018 take 1 capsule by mouth twice daily Dicyclomine 10 mg Capsule Active 10 MG PO Twice daily October 05, 2018 12:00am ergocalciferol 1.25 mg oral capsule (1 source) Provitamin D2 Compound Start: 10-05-2018 take 1 capsule by mouth every week Ergocalciferol (Vitamin D2) (Vitamin D2) 50,000 unit Capsule Active 49434 UNIT PO every week October 05, 2018 12:00am predniSONE 20 mg oral tablet (1 source) Start: 03-23-2022 take 1 tablet by mouth every twelve hours predniSONE 20 MG 1 tablet Orally 2 times a day for 5 day(s) Feb, Active Vit-Fe Fumarate-FA (PNV Plus Multivitamin) 27-1 MG tablet (14 sources) Vit-Fe Fumarate-FA (PNV Plus Multivitamin) 27-1 MG [...] Problem Date Documented Date Episodic/Chronic Abdominal pain (2 sources) Abdominal pain; Translations: [Unspecified abdominal pain] 09-09-2023 Episodic Comment on above: Problem List clean-u p per request of Phys. EHR Cmte Esophageal disorders (1 source) Gastroesophageal reflux disease; Translations: [Gastro-esophageal reflux disease without esophagitis] 09-09-2023 Chronic Comment on above: Problem List clean-u p per request of Phys. EHR Cmte Hemorrhage during ; abruptio placenta; placenta previa (2 sources) Low lying placenta; Translations: [Low lying placenta NOS or without hemorrhage, unspecified trimester] 08-31-2024 Episodic Immunizations and screening for infectious disease (4 sources) Encounter for screening for human papillomavirus (HPV); Translations: [Contact with and (suspected) exposure to infections with a predominantly sexual mode of transmission] Onset: 08-30-2022 10-31-2024 Episodic Menstrual disorders (7 sources) Missed period; Translations: [Irregular menstrual cycle] Onset: 05-08-2022 Chronic OB-related trauma to perineum and vulva (1 source) First degree perineal laceration during delivery; Translations: [FIRST DEG PERINEAL LAC DUR DELIV] Onset: 12-11-2022 Episodic Other complications of (2 sources) size does not accord with dates; Translations: [Uterine size-date discrepancy, unspecified trimester] 10-31-2024 Episodic Other female genital disorders (2 sources) Vaginal discharge; Translations: [Other specified noninflammatory disorders of vagina] 10-31-2024 Episodic Other and delivery including normal (20 sources) care status; Translations: [Supervision of other normal ] Onset: 05-05-2022 Episodic Other screening for suspected conditions (not mental disorders or infectious disease) (16 sources) Encounter for screening for Streptococcus B; Translations: [Encounter for screening for diabetes mellitus] Onset: 05-09-2022 Episodic Residual codes; unclassified (1 source) 39 weeks gestation of ; Translations: [39 WEEKS GESTATION OF ] Onset: 12-11-2022 Episodic Residual codes; unclassified (2 sources) Gestation period, 20 weeks; Translations: [20 weeks gestation of ] 08-31-2024 Episodic Residual codes; unclassified (2 sources) Gestation period, 25 weeks; Translations: [25 weeks gestation of ] 10-03-2024 Episodic Residual codes; unclassified (2 sources) Gestation period, 29 weeks; Translations: [29 weeks gestation of ] 10-31-2024 Episodic Residual codes; unclassified (2 sources) Gestation period, 31 weeks; Translations: [31 weeks gestation of ] 11-14-2024 Episodic Past or Other Problems Problem Classification Problem Date Documented Date Episodic/Chronic Allergic reactions (1 source) Unspecified contact dermatitis, unspecified cause Onset: 03-23-2022 Resolved: 03-23-2022 Episodic Other female genital disorders (1 source) Other specified noninflammatory disorders of vagina; Translations: [OTH SPEC NONINFLAMMATORY D/O VAGINA] Onset: 08-30-2022 Episodic Residual codes; unclassified (1 source) 9 weeks gestation of ; Translations: [9 WEEKS GESTATION OF ] Onset: 05-05-2022 Episodic Results Test Name Value Interpretation Reference Range Facility US OB FOLLOW UP TRANSABDOMIN AL APPROACHon 11-14-2024 US OB FOLLOW UP TRANSABDOMINAL APPROACH TITLE OF EXAM: OB Ultrasound: REASON FOR EXAM: Inconsistent size. COMPARISON: 10/03/2024 TECHNIQUE: Grayscale and M-mode Doppler imaging is performed. FINDINGS: Measurements: heart rate: 131 bpm BOB: 14.5 cm (8.8-23.8) BPD: 7.5 cm HC: 28.1 cm AC: 27.4 cm FL: 6.3 cm GA for sonogram: 31.1 wk (28.7-33.5) CLARISSA: 01/16/2025 Weight Estimate: Weight: 1805 gm / 3 lbs, 15 oz (7020-7332 gm) [place] Normal: 1751 gm (5335-1486 gm) [place] Wt%: 59% for 31.0 wks Limited for: Growth Presentation: Breech Lie: Longitudinal Amniotic Fluid: 14.5 cm Largest Fluid Pocket: 4.1 cm Heart Rate: 131 bpm Somatic motion: Yes Fluid-filled stomach is present. Beating heart is present. Diaphragm appears intact. IMPRESSION: Single live intrauterine gestation in breech position estimated at 31.1 weeks. This is concordant with the provided clinical dates. Dictated and transcribed 11/14/24/dpd This report has been electronically signed and approved by the interpreting radiologist. Normal Not Available Comment on above: Order Comment: US OB SCAN FOR GROWTH Estimated Date of Delivery: 01/16/25 Gestational Age as of 10/31/2024: 29w0d Urinalysis macro (dipstick) panel (U)on 11-14-2024 Bilirubin, UA Negative Negative - 4(70) +++ mg/dL [facility] Blood, UA Negative Negative - 50 Serafin/mcL [facility] Clarity, UA Clear [facility] Color, UA Yellow [facility] Glucose, UA Negative Negative - 1999(110) ++++ mg/dL [facility] Interpretation and review of laboratory results Normal [facility] Ketones, UA Negative Negative - 160(16) ++++ mg/dL [facility] Leukocytes, UA Negative Negative - 500+++ Princess/mcL [facility] Nitrite, UA Negative Negative - Positive [facility] pH, UA 7 5 - 9 [facility] Protein, UA Negative Negative - 2000(20) ++++ mg/dL [facility] Spec Grav, UA 1.015 1 - 1.03 [facility] Urobilinogen, UA 0.2 0.2 - 12 mg/dL [facility] RECURRENT VAGINITIS (HTRX)on 11-01-2024 ATOPOBIUM VAGINAE 0 [facility] ATOPOBIUM VAGINAE Not detected [facility] BVAB 2,3 (BACTERIAL VAGINOSIS ASSOCIATED BACTERIA 2, 3); MOBILUNCUS SPP 0 [facility] BVAB 2,3 (BACTERIAL VAGINOSIS ASSOCIATED BACTERIA 2, 3); MOBILUNCUS SPP Not detected [facility] HUONG ALBICANS, PARAPSILOSIS, TROPICALIS 0 [facility] HUONG ALBICANS, PARAPSILOSIS, TROPICALIS Not detected [facility] HUONG GLABRATA 0 [facility] HUONG GLABRATA Not detected [facility] HUONG KRUSEI 0 [facility] HUONG KRUSEI Not detected [facility] CHLAMYDIA TRACHOMATIS 0 [facility] CHLAMYDIA TRACHOMATIS Not detected [facility] GARDNERELLA VAGINALIS 0 [facility] GARDNERELLA VAGINALIS Not detected [facility] MEGASPHAERA (TYPES 1, 2) 0 [facility] MEGASPHAERA (TYPES 1, 2) Not detected [facility] MYCOPLASMA GENITALIUM 0 [facility] MYCOPLASMA GENITALIUM Not detected [facility] NEISSERIA GONORRHOEAE 0 [facility] NEISSERIA GONORRHOEAE Not detected [facility] TRICHOMONAS VAGINALIS 0 [facility] TRICHOMONAS VAGINALIS Not detected [facility] Urinalysis macro (dipstick) panel (U)on 10-31-2024 Bilirubin, UA Negative Negative - 4(70) +++ mg/dL [facility] Blood, UA Negative Negative - 50 Serafin/mcL [facility] Clarity, UA Clear [facility] Color, UA Yellow [facility] Glucose, UA Negative Negative - 1999(110) ++++ mg/dL [facility] Interpretation and review of laboratory results Normal [facility] Ketones, UA Negative Negative - 160(16) ++++ mg/dL [facility] Leukocytes, UA Negative Negative - 500+++ Princess/mcL [facility] Nitrite, UA Negative Negative - Positive [facility] pH, UA 7.5 5 - 9 [facility] Protein, UA Negative Negative - 1999(20) ++++ mg/dL [facility] Spec Grav, UA 1.015 1 - 1.03 [facility] Urobilinogen, UA 1.0 0.2 - 12 mg/dL [facility] ALL CBC WITH AUTO DIFFon BASOPHILS ABSOLUTE AUTO 0 [facility] Basophils/100 WBC (Bld) 0.2 % 0.2 - 2.0 % [facility] Eosinophils/100 WBC (Bld) 1.2 % 0.9 - 7.0 % [facility] Erythrocyte distribution width (RBC) [Ratio] 12.3 % 11.0 - 15.0 % [facility] Hematocrit (Bld) [Volume fraction] 37.6 % 36.0 - 48.0 % [facility] Hemoglobin (Bld) [Mass/Vol] 13 g/dL 12.0 - 16.0 g/dL [facility] IMMATURE GRANULOCYTES ABS AUTO 0.05 High [facility] Immature granulocytes/100 WBC (Bld) 0.5 % 0.0 - 0.5 % [facility] Interpretation and review of laboratory results Abnormal [facility] LYMPHOCYTES ABSOLUTE AUTO 2 [facility] Lymphocytes/100 WBC (Bld) 18.9 % Low 20.5 - 60.0 % [facility] MCH (RBC) [Entitic mass] 31.4 pg 26.7 - 34.0 pg [facility] MCHC (RBC) [Mass/Vol] 34.6 g/dL 29.9 - 35.2 g/dL [facility] MCV (RBC) [Entitic vol] 90.8 fL 81.0 - 99.0 fL [facility] MONOCYTES ABSOLUTE AUTO 0.5 [facility] Monocytes/100 WBC (Bld) 4.7 % 1.7 - 12.0 % [facility] NEUTROPHILS ABSOLUTE AUTO 7.7 High [facility] Neutrophils/100 WBC (Bld) 74.5 % 43.0 - 75.0 % [facility] Platelet mean volume (Bld) [Entitic vol] 9.4 fL Low 9.5 - 13.5 fL [facility] TBH EO # 0.1 [facility] TB PLT [facility] RBC 4.14 Low [facility] WBC 10.3 [facility] US OB LIMITED 1+ FETUSESon 0 - US OB LIMITED 1+ FETUSES TITLE OF EXAM: OB Ultrasound: REASON FOR EXAM: Low lying placenta. COMPARISON: None. TECHNIQUE: Grayscale and M-mode Doppler imaging is performed. Measurements: heart rate: 149 bpm Cervix Length: 3.6 cm CLARISSA: 01/16/2025 FINDINGS: A single intrauterine is noted in breech presentation. heart is observed with a heart rate of 149 BPM. Placenta is Grade 0/III Placenta tip to internal OS: 6.6 cm Cervix appears closed. Tech notes: Active fetus. Placenta appears to have moved away from cervix. IMPRESSION: 1. Single intrauterine gestation. 2. Internal os is clear. Placental edge is >6 cm from os. Dictated and transcribed 10/03/24/dpd This report has been electronically signed and approved by the interpreting radiologist. Normal Not Available Comment on above: Order Comment: US OB PLACENTA W US OB TRANSVAGINAL Estimated Date of Delivery: 01/16/25 Gestational Age as of 08/31/2024: 24w4d Urinalysis macro (dipstick) panel (U)on 10-03-2024 Bilirubin, UA Negative Negative - 4(70) +++ mg/dL [facility] Blood, UA Negative Negative - 50 Serafin/mcL [facility] Clarity, UA Clear [facility] Color, UA Yellow [facility] Glucose, UA Negative Negative - 1999(110) ++++ mg/dL [facility] Interpretation and review of laboratory results Normal [facility] Ketones, UA Negative Negative - 160(16) ++++ mg/dL [facility] Leukocytes, UA Negative Negative - 500+++ Princess/mcL [facility] Nitrite, UA Negative Negative - Positive [facility] pH, UA 7 5 - 9 [facility] Protein, UA Negative Negative - 1999(20) ++++ mg/dL [facility] Spec Grav, UA 1.02 1 - 1.03 [facility] Urobilinogen, UA 0.2 0.2 - 12 mg/dL [facility] Urine Cultureon 10-03-2024 Bacteria identified Cx Nom (U) <9,000 colonies/ml mixed bacterial skin contaminants 2 Days PERFORMED BY: [place] [address] PATHOLOGIST MOTEL CLERK DESIREE WARD M.D. Normal [facility] Comment on above: Performed By: #### C UU #### [address] Urinalysis macro (dipstick) panel (U)on 08-31-2024 Bilirubin, UA Negative Negative - 4(70) +++ mg/dL [facility] Blood, UA Negative Negative - 50 Serafin/mcL [facility] Clarity, UA Clear [facility] Color, UA Yellow [facility] Glucose, UA Negative Negative - 1999(110) ++++ mg/dL [facility] Interpretation and review of laboratory results Normal [facility] Ketones, UA Negative Negative - 160(16) ++++ mg/dL [facility] Leukocytes, UA Negative Negative - 500+++ Princess/mcL [facility] Nitrite, UA Negative Negative - Positive [facility] pH, UA 7 5 - 9 [facility] Protein, UA Negative Negative - 1999(20) ++++ mg/dL [facility] Spec Grav, UA 1.025 1 - 1.03 [facility] Urobilinogen, UA 0.2 0.2 - 12 mg/dL [facility] HCG ( test) Ql (U)o n 07-29-2024 Interpretation and review of laboratory results Abnormal [facility] Preg Test, Ur Positive Negative [facility] Urinalysis macro (dipstick) panel (U)on 07-29-2024 Bilirubin, UA Negative Negative - 4(70) +++ mg/dL [facility] Blood, UA Negative Negative - 50 Serafin/mcL [facility] Clarity, UA Clear [facility] Color, UA Yellow [facility] Glucose, UA Negative Negative - 1999(110) ++++ mg/dL [facility] Interpretation and review of laboratory results Abnormal [facility] Ketones, UA Negative Negative - 160(16) ++++ mg/dL [facility] Leukocytes, UA Positive Negative - 500+++ Princess/mcL [facility] Comment on above: small Nitrite, UA Negative Negative - Positive [facility] pH, UA 8.5 5 - 9 [facility] Protein, UA Trace Negative - 1999(20) ++++ mg/dL [facility] Spec Grav, UA 1.02 1 - 1.03 [facility] Urobilinogen, UA 0.2 0.2 - 12 mg/dL [facility]H PREG QUANT HCGon 07-14- 024 HCG QUANTITATIVE 111006 mIU/mL [facility] Comment on above: 5-50 0.2-1 WEEK 50-500 1-2 WEEKS 100-5,000 2-3 WEEKS 500-10,000 3-4 WEEKS 1,000-50,000 4-5 WEEKS 10,000-100,000 5-6 WEEKS 15,000-200,000 6-8 WEEKS 10,000-100,000 2-3 MONTHS [facility] [place] 11-16-2023 L Specimen: [id number] Received: 11/16/23 Status: HUMA Abarca Num: [id number] Spec Type: Surgical Subm Dr: Reed Betancur Tissues: A Placenta - 3rd Trimester (Greater than 28 weeks) (PLACENTA) Procedures: HE/4, Gross/Micro L5 Age/ Patient Sex Location Account Attending Physician TrentSusana Fay 28/F LABE[facility] [id number] Reed Betancur SPEC NUM: [id number] RECD: 11/16/23 STATUS: HUMA ABARCA NUM: [id number] MARTHA: 11/16/23- SUBM DR: Reed Betancur ENTERED: 11/16/[address] [facility] [address]: Shawn,Lab SPEC TYPE: Surgical DEPT: MEGHNA [...] red-brown parenchyma 2.7 cm in average thickness. Design Project Manager sections are submitted in 4 cassettes as follows: A1 - membranes, umbilical cord, and decidua basalis A2-A3 - Central placenta, full-thickness, with fibrin deposition -------- Specimen: [id number] Received: 11/16/23 Status: HUMA Abarca Num: [id number] Spec Type: Surgical Subm Dr: Reed Betancur Tissues: A Placenta - 3rd Trimester (Greater than 28 weeks) (PLACENTA) Procedures: Jesus DUNHAM/Taya L5 -------- Patient: Susana Newman [id number] (Continued) -------- Specimen: [id number] Received: 11/16/23 (Continued) Gross Description (Continued) Signed (signature on file) Desiree Ward MD 11/22/23 2135 -------- Specimen: [id number] Received: 11/16/23 Status: HUMA Abarca Num: [id number] Spec Type: Surgical Subm Dr: Reed Betancur Tissues: A Placenta - 3rd Trimester (Greater than 28 weeks) (PLACENTA) Procedures: Jesus DUNHAM/Taya L5 -------- Patient: Susana Newman [id number] (Continued) -------- Specimen: [id number] Received: 11/16/23 (Continued) Gross Description (Continued) A4 - Peripheral placenta CPT Codes 34466 -------- -------- Specimen: [id number] Received: 11/16/23 Status: HUMA Abarca Num: [id number] Spec Type: Surgical Subm Dr: Reed Betancur Tissues: A Placenta - 3rd Trimester (Greater than 28 weeks) (PLACENTA) Procedures: HE/4, Gross/Micro L5 -------- Patient: Susana Newman [id number] (Continued) -------- Signed (signature on file) Desiree Ward MD 11/22/23 2135 Normal [facility] CBC W MANUAL DIFFon 12-06-19 23 ATYPICAL LYMPH # Normal [facility] Comment on above: Performed By: #### C BAYRON #### [facility] [address] [place] [address] Dr. Jennifer Almanza ATYPICAL LYMPH % Normal [facility] Comment on above: Performed By: #### C BAYRON #### [facility] [address] [place] [address] Dr. Jennifer Almanza BAND # 0.0 103/ul Normal 0.0-0.3 [facility] Comment on above: Performed By: #### C BAYRON #### [facility] [address] [place] [address] Dr. Jennifer Almanza BAND % 0 % Normal 0-5 [facility] Comment on above: Performed By: #### C BAYRON #### [facility] [address] [place] [address] Dr. Jennifer Almanza BASOM # 0.00 103/ul Normal 0.00-0.10 [facility] Comment on above: Performed By: #### C BAYRON #### [facility] [address] [place] [address] Dr. Jennifer Almanza BASOM % 0.0 % Critically low 0.2-2.0 [facility] Comment on above: Performed By: #### C BAYRON #### [facility] [address] [place] [address] Dr. Jennifer Alamnza BLAST # Normal [facility] Comment on above: Performed By: #### C BAYRON #### [facility] [address] [place] [address] Dr. Jennifer Almanza BLAST % Normal [facility] Comment on above: Performed By: #### C BAYRON #### [facility] [address] [place] [address] Dr. Jennifer Almanza CORRECTED WBC Normal 4.0-11.0 [facility] Comment on above: Performed By: #### C BAYRON #### [facility] [address] [place] [address] Dr. Jennifer Almanza EOS # 0.00 103/ul Normal 0.00-0.70 [facility] Comment on above: Performed By: #### C BAYRON #### [facility] [address] [place] [address] Dr. Jennifer Almanza EOS% 0.0 % Critically low 0.9-7.0 [facility] Comment on above: Performed By: #### C BAYRON #### [facility] [address] [place] [address] Dr. Jennifer Almanza HCT 32.4 % Critically low 36.0-48.0 [facility] Comment on above: Performed By: #### C BAYRON #### [facility] [address] [place] [address] Dr. Jennifer Almanza HGB 11.7 g/dl Critically low 12.0-16.0 [facility] Comment on above: Performed By: #### C BAYRON #### [facility] [address] [place] [address] Dr. Jennifer Almanza LYMPHM # 1.62 103/ul Normal 1.20-3.80 [facility] Comment on above: Performed By: #### C BAYRON #### [facility] [address] [place] [address] Dr. Jennifer Almanza LYMPHM% 8.0 % Critically low 20.5-60.0 [facility] Comment on above: Performed By: #### C BAYRON #### [facility] [address] [place] [address] Dr. Jennifer Almanza MCH 30.8 pg Normal 26.7-34.0 [facility] Comment on above: Performed By: #### C BAYRON #### [facility] [address] [place] [address] Dr. Jennifer Almanza MCHC 36.1 g/dl Critically high 29.9-35.2 [facility] Comment on above: Performed By: #### C BAYRON #### [facility] [address] [place] [address] Dr. Jennifer Almanza MCV 85.3 fL Normal 81.0-99.0 [facility] Comment on above: Performed By: #### C BAYRON #### [facility] [address] [place] [address] Dr. Jennifer Almanza METAMYELOCYTE # Normal [facility] Comment on above: Performed By: #### C BAYRON #### [facility] [address] [place] [address] Dr. Jennifer Almanza METAMYELOCYTE % Normal [facility] Comment on above: Performed By: #### C BAYRON #### [facility] [address] [place] [address] Dr. Jennifer Almanza MONOM# 0.81 103/ul Critically high 0.30-0.80 [facility] Comment on above: Performed By: #### C BAYRON #### [facility] [address] [place] [address] Dr. Jennifer Almanza MONOM% 4.0 % Normal 1.7-12.0 [facility] Comment on above: Performed By: #### C BAYRON #### [facility] [address] [place] [address] Dr. Jennifer Almanza MPV 11.8 fL Normal 9.5-13.5 [facility] Comment on above: Performed By: #### C BAYRON #### [facility] [address] [address] [address] Jennifer Almanza MYELOCYTE # Normal [facility] Comment on above: Performed By: #### C BAYRON #### [facility] [address] [address] [address] Jennifer Almanza MYELOCYTE % Normal [facility] Comment on above: Performed By: #### C BAYRON #### [facility] [address] [address] [address] Jennifer Almanza NRBC Normal [facility] Comment on above: Performed By: #### C BAYRON #### [facility] [address] [address] [address] Jennifer Almanza PLT 142 103/ul Critically low 150-450 [facility] Comment on above: Performed By: #### C BAYRON #### [facility] [address] [place] [address] Dr. Jennifer Almanza RBC 3.80 106/ul Critically low 4.20-5.40 [facility] Comment on above: Performed By: #### C BAYRON #### [facility] [address] [place] [address] Dr. Jennifer Almanza RDW 12.7 % Normal 11.0-15.0 [facility] Comment on above: Performed By: #### C BAYRON #### [facility] [address] [address] [address] Jennifer Almanza SEG # 17.78 103/ul Critically high 1.40-6.50 [facility] Comment on above: Performed By: #### C BCANGEL #### [facility] [address] [place] [address] Dr. Jennifer Almanza SEG % 88.0 % Critically high 43.0-75.0 [facility] Comment on above: Performed By: #### C BAYRON #### [facility] [address] [address] [address] Jennifer Almanza WBC 20.2 103/ul Critically high 4.0-11.0 [facility] Comment on above: Performed By: #### C BAYRON #### [facility] [address] [address] [address] Jennifer Almanza CBC AUTO DIFFon 12-04-2022 BASO # 0.0 103/ul Normal 0.0-0.1 [facility] Comment on above: Performed By: #### C BC #### [facility] [address] [address] [address] Jennifer Almanza Basophils/100 WBC (Bld) 0.2 % Normal 0.2-2.0 [facility] Comment on above: Performed By: #### C BC #### [facility] [address] [place] [address] Dr. Jennifer Almanza EO # 0.0 103/ul Normal 0.0-0.7 [facility] Comment on above: Performed By: #### C BC #### [facility] [address] [place] [address] Dr. Jennifer Almanza Eosinophils/100 WBC (Bld) 0.0 % Critically low 0.9-7.0 [facility] Comment on above: Performed By: #### C BC #### [facility] [address] [place] [address] Dr. Jennifer Almanza Erythrocyte distribution width (RBC) [Ratio] 12.6 % Normal 11.0-15.0 [facility] Comment on above: Performed By: #### C BC #### [facility] [address] [place] [address] Dr. Jennifer Almanza Hematocrit (Bld) [Volume fraction] 40.6 % Normal 36.0-48.0 [facility] Comment on above: Performed By: #### C BC #### [facility] [address] [place] [address] Dr. Jennifer Almanza Hemoglobin (Bld) [Mass/Vol] 14.6 g/dL Normal 12.0-16.0 [facility] Comment on above: Performed By: #### C BC #### [facility] [address] [place] [address] Dr. Jennifer Almanza IG # 0.07 10e3/ul Critically high 0.00-0.03 [facility] Comment on above: Performed By: #### C BC #### [facility] [address] [place] [address] Dr. Jennifer Almanza IG % 0.4 % Normal 0.0-0.5 [facility] Comment on above: Performed By: #### C BC #### [facility] [address] [place] [address] Dr. Jennifer Almanza LYMPH # 0.9 103/ul Critically low 1.2-3.8 [facility] Comment on above: Performed By: #### C BC #### [facility] [address] [place] [address] Dr. Jennifer Almanza Lymphocytes/100 WBC (Bld) 5.0 % Critically low 20.5-60.0 [facility] Comment on above: Performed By: #### C BC #### [facility] [address] [place] [address] Dr. Jennifer Almanza MANUAL DIFF REQ NO Normal [facility] Comment on above: Performed By: #### C BC #### [facility] [address] [place] [address] Dr. Jennifer Almanza MCH (RBC) [Entitic mass] 30.6 pg Normal 26.7-34.0 [facility] Comment on above: Performed By: #### C BC #### [facility] [address] [place] [address] Dr. Jennifer Almanza MCHC (RBC) [Mass/Vol] 36.0 g/dL Critically high 29.9-35.2 [facility] Comment on above: Performed By: #### C BC #### [facility] [address] [place] [address] Dr. Jennifer Almanza MCV (RBC) [Entitic vol] 85.1 fL Normal 81.0-99.0 [facility] Comment on above: Performed By: #### C BC #### [facility] [address] [place] [address] Dr. Jennifer Almanza MONO # 0.9 103/ul Critically high 0.3-0.8 [facility] Comment on above: Performed By: #### C BC #### [facility] [address] [place] [address] Dr. Jennifer Almanza Monocytes/100 WBC (Bld) 5.3 % Normal 1.7-12.0 [facility] Comment on above: Performed By: #### C BC #### [facility] [address] [place] [address] Dr. Jennifer Almanza NEUT # 15.8 103/ul Critically high 1.4-6.5 [facility] Comment on above: Performed By: #### C BC #### [facility] [address] [place] [address] Dr. Jennifer Almanza Neutrophils/100 WBC (Bld) 89.1 % Critically high 43.0-75.0 [facility] Comment on above: Performed By: #### C BC #### [facility] [address] [place] [address] Dr. Jennifer Almanza Platelet mean volume (Bld) [Entitic vol] 12.0 fL Normal 9.5-13.5 [facility] Comment on above: Performed By: #### C BC #### [facility] [address] [place] [address] Dr. Jennifer Almanza PLT 177 103/ul Normal 150-450 [facility] Comment on above: Performed By: #### C BC #### [facility] [address] [place] [address] Dr. Jennifer Almanza RBC 4.77 106/ul Normal 4.20-5.40 [facility] Comment on above: Performed By: #### C BC #### [facility] [address] [place] [address] Dr. Jennifer Almanza WBC 17.7 103/ul Critically high 4.0-11.0 [facility] Comment on above: Performed By: #### C BC #### [facility] [address] [place] [address] Dr. Jennifer Almanza TYPE AND SCREENon 12-04-2022 TYPE AND SCREEN Negative Normal [facility] Comment on above: Performed By: #### T NS #### [facility] [address] [place] [address] Dr. Jennifer Almanza GROUP B STREP CULTUREon 10-30 S. agalactiae Ag Ql (Unsp spec) Culture Observations: NEGATIVE FOR GROUP B STREPTOCOCCUS. Normal [facility] Comment on above: Performed By: #### G BSCX #### [facility] [address] [place] [address] Dr. Jennifer Almanza CBC AUTO DIFFon 09-12-2022 BASO # 0.0 103/ul Normal 0.0-0.1 [facility] Comment on above: Performed By: #### C BC #### [facility] [address] [place] [address] Dr. Jennifer Almanza Basophils/100 WBC (Bld) 0.2 % Normal 0.2-2.0 [facility] Comment on above: Performed By: #### C BC #### [facility] [address] [place] [address] Dr. Jennifer Almanza EO # 0.1 103/ul Normal 0.0-0.7 [facility] Comment on above: Performed By: #### C BC #### [facility] [address] [place] [address] Dr. Jennifer Almanza Eosinophils/100 WBC (Bld) 1.2 % Normal 0.9-7.0 [facility] Comment on above: Performed By: #### C BC #### [facility] [address] [place] [address] Dr. Jennifer Almanza Erythrocyte distribution width (RBC) [Ratio] 11.8 % Normal 11.0-15.0 [facility] Comment on above: Performed By: #### C BC #### [facility] [address] [place] [address] Dr. Jennifer Almanza Hematocrit (Bld) [Volume fraction] 37.8 % Normal 36.0-48.0 [facility] Comment on above: Performed By: #### C BC #### [facility] [address] [place] [address] Dr. Jennifer Almanza Hemoglobin (Bld) [Mass/Vol] 12.9 g/dL Normal 12.0-16.0 [facility] Comment on above: Performed By: #### C BC #### [facility] [address] [place] [address] Dr. Jennifer Almanza IG # 0.03 10e3/ul Normal 0.00-0.03 [facility] Comment on above: Performed By: #### C BC #### [facility] [address] [place] [address] Dr. Jennifer Almanza IG % 0.4 % Normal 0.0-0.5 [facility] Comment on above: Performed By: #### C BC #### [facility] [address] [place] [address] Dr. Jennifer Almanza LYMPH # 1.1 103/ul Critically low 1.2-3.8 [facility] Comment on above: Performed By: #### C BC #### [facility] [address] [place] [address] Dr. Jennifer Almanza Lymphocytes/100 WBC (Bld) 13.6 % Critically low 20.5-60.0 [facility] Comment on above: Performed By: #### C BC #### [facility] [address] [place] [address] Dr. Jennifer Almanza MANUAL DIFF REQ NO Normal [facility] Comment on above: Performed By: #### C BC #### [facility] [address] [place] [address] Dr. Jennifer Almanza MCH (RBC) [Entitic mass] 30.5 pg Normal 26.7-34.0 [facility] Comment on above: Performed By: #### C BC #### [facility] [address] [place] [address] Dr. Jennifer Almanza MCHC (RBC) [Mass/Vol] 34.1 g/dL Normal 29.9-35.2 [facility] Comment on above: Performed By: #### C BC #### [facility] [address] [place] [address] Dr. Jennifer Almanza MCV (RBC) [Entitic vol] 89.4 fL Normal 81.0-99.0 [facility] Comment on above: Performed By: #### C BC #### [facility] [address] [place] [address] Dr. Jennifer Almanza MONO # 0.4 103/ul Normal 0.3-0.8 [facility] Comment on above: Performed By: #### C BC #### [facility] [address] [place] [address] Dr. Jennifer Almanza Monocytes/100 WBC (Bld) 5.0 % Normal 1.7-12.0 [facility] Comment on above: Performed By: #### C BC #### [facility] [address] [place] [address] Dr. Jennifer Almanza NEUT # 6.5 103/ul Normal 1.4-6.5 [facility] Comment on above: Performed By: #### C BC #### [facility] [address] [place] [address] Dr. Jennifer Almanza Neutrophils/100 WBC (Bld) 79.6 % Critically high 43.0-75.0 [facility] Comment on above: Performed By: #### C BC #### [facility] [address] [place] [address] Dr. Jennifer Almanza Platelet mean volume (Bld) [Entitic vol] 9.3 fL Critically low 9.5-13.5 [facility] Comment on above: Performed By: #### C BC #### [facility] [address] [place] [address] Dr. Jennifer Almanza PLT 234 103/ul Normal 150-450 [facility] Comment on above: Performed By: #### C BC #### [facility] [address] [place] [address] Dr. Jennifer Almanza RBC 4.23 106/ul Normal 4.20-5.40 [facility] Comment on above: Performed By: #### C BC #### [facility] [address] [place] [address] Dr. Jennifer Almanza WBC 8.2 103/ul Normal 4.0-11.0 [facility] Comment on above: Performed By: #### C BC #### [facility] [address] [place] [address] Dr. Jennifer Almanza GLUCOSE - 1HRon 12-16-2022 Glucose [Mass/Vol] 92 mg/dL Normal 74-106 [facility] Comment on above: Performed By: #### H CVPCRR #### [facility] [address] [place] [address] Dr. Jennifer Almanza PAP ACOG PANEL 2: 21 to 29on 09-02-2022 . . Normal [facility] Comment on above: Performed By: #### [id number] #### [facility] [address] [place] [address] Dr. Jennifer Almanza Age Gdln ACOG Testing 21-29 [facility] Comment on above: Performed By: #### [id number] #### [facility] [address] [place] [address] Dr. Jennifer Almanza DIAGNOSIS: Comment [facility] Comment on above: Result Comment: NEGA TIVE FOR INTRAEPITHELIAL LESION OR MALIGNANCY. Performed By: #### [id number] #### [facility] [address] [place] [address] Dr. Jennifer Almanza Methodology: Comment [facility] Comment on above: Result Comment: This liquid based ThinPrep(R) pap test was screened with the use of an image guided system. Performed By: #### [id number] #### [facility] [address] [place] [address] Dr. Jennifer Almanza Note: Comment [facility] Comment on above: Result Comment: The Pap smear is a screening test designed to aid in the detection of premalignant and malignant conditions of the uterine cervix. It is not a diagnostic procedure and should not be used as the sole means of detecting cervical cancer. Both false-positive and false-negative reports do occur. . Performed By: #### [id number] #### [facility] [address] [place] [address] Dr. Jennifer Almanza Performed by: Comment Normal [facility] Comment on above: Result Comment: Tan Mitchell, Newborn Photographer (ASCP) Performed By: #### [id number] #### [facility] [address] [place] [address] Dr. Jennifer Almanza Reflex Criteria: Comment Normal [facility] Comment on above: Result Comment: The HPV DNA reflex criteria were not met with this specimen result therefore, no HPV testing was performed. . Performed By: #### [id number] #### [facility] [address] [address] [address] Jennifer Almanza Specimen adequacy: Comment Normal [facility] Comment on above: Result Comment: Sati sfactory for evaluation. No endocervical component is identified. Performed By: #### 4 [id number] #### [facility] [address] [address] [address] Jennifer Almanza CHLAMYDIA/GONOCOCCUS PEPE (SW AB/URINE/PAPon 08-29-2022 Chlamydia trachomatis, PEPE Negative Normal Negative [facility] Comment on above: Performed By: #### H CVPCRR #### [facility] [address] [place] [address] Dr. Jennifer Almanza Neisseria gonorrhoeae, PEPE Negative Normal Negative [facility] Comment on above: Performed By: #### H CVPCRR #### [facility] [address] [address] [address] Jennifer Almanza VAGINITIS/VAGINOSIS DNA PROB Gamaliel 08-28-2022 Huong species Positive Abnormal Negative [facility] Comment on above: Performed By: #### H CVPCRR #### [facility] [address] [place] [address] Dr. Jennifer Amlanza Gardnerella vaginalis Negative Normal Negative [facility] Comment on above: Performed By: #### H CVPCRR #### [facility] [address] [place] [address] Dr. Jennifer Almanza Trichomonas vaginalis Negative Normal Negative [facility] Comment on above: Performed By: #### H CVPCRR #### [facility] [address] [place] [address] Dr. Jennifer Almanza US PREG ANATOMY SINGLEon [...] GM ROMERO Date: 2022-07-29 06:06 Normal [facility] HEP B SURFACE ANTIGEN SCREEN on 05-09-2022 HBsAg Screen Negative Normal Negative [facility] Comment on above: Performed By: #### H BSANS #### [facility] [address] [place] [address] Dr. Jennifer Almanza HEPATITIS C VIRUS AB W/ REFL EX QUANTon 05-09-2022 HCV AB <0.1 Normal 0.0-0.9 [facility] Comment on above: Performed By: #### H CVPCRR #### [facility] [address] [place] [address] Dr. Jennifer Almnaza Interpretation: Comment Normal [facility] Comment on above: Result Comment: Nega tive Not infected with HCV, unless recent infection is suspected or other evidence exists to indicate HCV infection. Performed By: #### H CVPCRR #### [facility] [address] [place] [address] Dr. Jennifer Almanza HIV 1 AND 2 WITH REFLEXon HIV Screen 4th Generation wRfx Non-Reactive Normal Non Reactive [facility] Comment on above: Result Comment: HIV Negative HIV-1/HIV-2 antibodies and HIV-1 p24 antigen were NOT detected. There is no laboratory evidence of HIV infection. Performed By: #### H CVPCRR #### [facility] [address] [place] [address] Dr. Jennifer Almanza RPR QUANTon 05-09-2022 Rapid Plasma Reagin, Quant Non-Reactive Normal NonRea<1:1 [facility] Comment on above: Result Comment: Plea se Note: This test does not meet current guidelines for screening and diagnosis of syphilis. This test is intended for following treatment response in patients being treated for syphilis infection. To screen for syphilis infection, a reflex cascade that includes both RPR and a treponema-specific assay should be utilized, such as Treponema pallidum (Syphilis) Screening [place] (223072) or Rapid Plasma Reagin (RPR) Test With Reflex to Quantitative RPR and Confirmatory Treponema pallidum Antibodies (704487). Performed By: #### R PRQ #### [facility] [address] [place] [address] Dr. Jennifer Almanza RUBELLA AB IGGon 05-09-2022 Rubella Antibodies, IgG 4.48 index Normal Immune >0.99 [facility] Comment on above: Result Comment: Non- immune <0.90 Equivocal 0.90 - 0.99 Immune >0.99 Performed By: #### H CVPCRR #### [facility] [address] [place] [address] Dr. Jennifer Almanza CBC AUTO DIFFon 05-08-2022 BASO # 0.0 103/ul Normal 0.0-0.1 [facility] Comment on above: Performed By: #### C BC #### [facility] [address] [place] [address] Dr. Jennifer Almanza Basophils/100 WBC (Bld) 0.5 % Normal 0.2-2.0 [facility] Comment on above: Performed By: #### C BC #### [facility] [address] [address] [address] Jennifer Almanza EO # 0.1 103/ul Normal 0.0-0.7 [facility] Comment on above: Performed By: #### C BC #### [facility] [address] [place] [address] Dr. Jennifer Almanza Eosinophils/100 WBC (Bld) 1.7 % Normal 0.9-7.0 [facility] Comment on above: Performed By: #### C BC #### [facility] [address] [place] [address] Dr. Jennifer Almanza Erythrocyte distribution width (RBC) [Ratio] 11.9 % Normal 11.0-15.0 [facility] Comment on above: Performed By: #### C BC #### [facility] [address] [place] [address] Dr. Jennifer Almanza Hematocrit (Bld) [Volume fraction] 38.4 % Normal 36.0-48.0 [facility] Comment on above: Performed By: #### C BC #### [facility] [address] [place] [address] Dr. Jennifer Almanza Hemoglobin (Bld) [Mass/Vol] 13.3 g/dL Normal 12.0-16.0 [facility] Comment on above: Performed By: #### C BC #### [facility] [address] [place] [address] Dr. Jennifer Almanza IG # 0.01 10e3/ul Normal 0.00-0.03 [facility] Comment on above: Performed By: #### C BC #### [facility] [address] [place] [address] Dr. Jennifer Almanza IG % 0.2 % Normal 0.0-0.5 [facility] Comment on above: Performed By: #### C BC #### [facility] [address] [place] [address] Dr. Jennifer Almanza LYMPH # 1.6 103/ul Normal 1.2-3.8 [facility] Comment on above: Performed By: #### C BC #### [facility] [address] [place] [address] Dr. Jennifer Almanza Lymphocytes/100 WBC (Bld) 25.8 % Normal 20.5-60.0 [facility] Comment on above: Performed By: #### C BC #### [facility] [address] [place] [address] Dr. Jennifer Almanza MANUAL DIFF REQ NO Normal [facility] Comment on above: Performed By: #### C BC #### [facility] [address] [place] [address] Dr. Jennifer Almanza MCH (RBC) [Entitic mass] 30.8 pg Normal 26.7-34.0 [facility] Comment on above: Performed By: #### C BC #### [facility] [address] [place] [address] Dr. Jennifer Almanza MCHC (RBC) [Mass/Vol] 34.6 g/dL Normal 29.9-35.2 [facility] Comment on above: Performed By: #### C BC #### [facility] [address] [place] [address] Dr. Jennifer Almanza MCV (RBC) [Entitic vol] 88.9 fL Normal 81.0-99.0 [facility] Comment on above: Performed By: #### C BC #### [facility] [address] [place] [address] Dr. Jennifer Almanza MONO # 0.5 103/ul Normal 0.3-0.8 [facility] Comment on above: Performed By: #### C BC #### [facility] [address] [place] [address] Dr. Jennifer Almanza Monocytes/100 WBC (Bld) 8.1 % Normal 1.7-12.0 [facility] Comment on above: Performed By: #### C BC #### [facility] [address] [place] [address] Dr. Jennifer Almanza NEUT # 4.0 103/ul Normal 1.4-6.5 [facility] Comment on above: Performed By: #### C BC #### [facility] [address] [place] [address] Dr. Jennifer Almanza Neutrophils/100 WBC (Bld) 63.7 % Normal 43.0-75.0 [facility] Comment on above: Performed By: #### C BC #### [facility] [address] [place] [address] Dr. Jennifer Almanza Platelet mean volume (Bld) [Entitic vol] 9.4 fL Critically low 9.5-13.5 [facility] Comment on above: Performed By: #### C BC #### [facility] [address] [place] [address] Dr. Jennifer Almanza PLT 217 103/ul Normal 150-450 [facility] Comment on above: Performed By: #### C BC #### [facility] [address] [place] [address] Dr. Jennifer Almanza RBC 4.32 106/ul Normal 4.20-5.40 [facility] Comment on above: Performed By: #### C BC #### [facility] [address] [place] [address] Dr. Jennifer Almanza WBC 6.3 103/ul Normal 4.0-11.0 [facility] Comment on above: Performed By: #### C BC #### [facility] [address] [place] [address] Dr. Jennifer Almanza CULTURE URINEon 05-08-2022 CULTURE URINE Culture Observations : LIGHT GROWTH OF MIXED GENITAL MICHAEL. NO POTENTIAL PATHOGENS SEEN. Normal [facility] Comment on above: Performed By: #### H CVPCRR #### [facility] [address] [place] [address] Dr. Jennifer Almanza GLYCOHEMOGLOBIN A1Con 2021 ADA RECOMMENDATION SEE BELOW Normal [facility] Comment on above: Result Comment: ADA RECOMMENDED LIMIT 4.0 - 6.0 ADA THERAPEUTIC TARGET < 7.0 ACTION SUGGESTED > 7.0 Performed By: #### H CVPCRR #### [facility] [address] [place] [address] Dr. Jennifer Almanza Glucose [Mass/Vol] 80 mg/dL Normal [facility] Comment on above: Performed By: #### H CVPCRR #### [facility] [address] [place], [place] [address] Dr. Jennifer Almanza HbA1c (Bld) [Mass fraction] 4.4 % Critically low 4.5-6.2 [facility] Comment on above: Performed By: #### H CVPCRR #### [facility] [address] [place], [place] [address] Dr. Jennifer Almanza TYPE AND SCREENon 05-08-2022 TYPE AND SCREEN Negative Normal [facility] Comment on above: Performed By: #### H CVPCRR #### [facility] [address] [place], [place] [address] Dr. Jennifer Almanza US PREG TVon 05-02-2022 [...] GM ROMERO Date: 2022-05-02 16:03 Normal [facility] Body fluid albumin measureme nt (mass/volume)Ordered By: Alisia Burciaga on 03-10-2022 Albumin (Body fld) [Mass/Vol] 4.5 g/dL 3.2-5.5 [facility] Creatinine and Glomerular fi ltration rate.predicted panel (S/P/Bld)Ordered By: Alisia Burciaga on 03-10-2022 Creatinine [Mass/Vol] 0.64 mg/dL 0.44-1.03 [facility] Estimated glomerular filtrat ion rate (GFR) non- AmericanOrdered By: Alisia Burciaga on 03-10-2022 GFR/1.73 sq M.predicted among non-blacks MDRD (S/P/Bld) [Vol rate/Area] > 60 mL/Min [facility] No Panel InformationOrdered By: Alisia Burciaga on 03-10-2022 25-Hydroxy Vitamin D Total 28.9 ng/mL 30-100 [facility] Comment on above: VITAMIN D STATUS 25( [place])VITAMIN D RANGE (ng/mL) Deficient <20 Insufficient 20 to <30 Sufficient 30 to 100 Reference: Vanessa MF,Nydia NC, Marisol HESS, et al. Evaluation,treatment, and prevention of vitamin D deficiency; an Endocrine Society clinical practice guideline. JCEM. 2010; 96(7):1911-30. Estimated GFR () > 60 mL/Min [facility] Comment on above: GFR estimated refere nce range: According to KDOQI guidelines, <60 ml/min/1.73m2 is sufficient to diagnose a patient with chronic kidney disease. Pharmacy Creatinine Clearance (Chem N/A [facility] Parathyroid Hormone Intacton 03-10-2022 Parathyroid Hormone Intact 50.9 pg/mL Normal 12-88 [facility] Comment on above: Result Comment: PERF ORMED BY: [facility] [address] [place] [address] PATHOLOGIST MOTEL CLERK TARAS MA M.D. Performed By: #### R ENAL, PTH, [id number] #### [facility] [place] [facility] [address] [place] [address] Phosphate [Mass/volume] in S celsa or PlasmaOrdered By: Alisia Burciaga on 03-10-2022 Phosphate [Mass/Vol] 3.3 mg/dL 2.5-4.6 [facility] Renal Function Panelon 03-10 Albumin [Mass/Vol] 4.5 g/dL Normal 3.2-5.5 [facility] Comment on above: Performed By: #### R ENAL, PTH, [id number] #### [facility] [place] [facility] [address] [place] [address] [place] Calcium [Mass/Vol] 9.9 mg/dL Normal 8.2-10.2 [facility] Comment on above: Performed By: #### R ENAL, PTH, [id number] #### [facility] [place] [facility] [address] Chloride [Moles/Vol] 102 mmol/L Normal 95-114 [facility] Comment on above: Performed By: #### R ENAL, PTH, [id number] #### [facility] [address] CO2 [Moles/Vol] 25.2 mmol/L Normal 22.0-30.0 [facility] Comment on above: Performed By: #### R ENAL, PTH, [id number] #### [facility] [address] Creatinine [Mass/Vol] 0.64 mg/dL Normal 0.44-1.03 [facility] Comment on above: Performed By: #### R ENAL, PTH, [id number] #### [address] Estimated GFR ( Rachel > 60 [facility] Comment on above: Result Comment: GFR estimated reference range: According to KDOQI guidelines, <60 ml/min/1.73m2 is sufficient to diagnose a patient with chronic kidney disease. Performed By: #### R ENAL, PTH, [id number] #### [address] Estimated GFR (Non- Am > 60 [facility] Comment on above: Performed By: #### R ENAL, PTH, [id number] #### [address] Glucose [Mass/Vol] 88 mg/dL Normal 70-100 [facility] Comment on above: Result Comment: [place] om Glucose Reference Range is dependent on time and content of last meal. Glucose of more than 200 mg/dL in a nonstressed, ambulatory subject supports the diagnosis of Diabetes Mellitus. ADA recommended reference range Performed By: #### R ENAL, PTH, [id number] #### [address] Phosphate [Mass/Vol] 3.3 mg/dL Normal 2.5-4.6 [facility] Comment on above: Performed By: #### R ENAL, PTH, [id number] #### [facility] [place] [facility] [address] Potassium [Moles/Vol] 4.6 mmol/L Normal 3.5-5.1 [facility] Comment on above: Performed By: #### R ENAL, PTH, [id number] #### [facility] [place] [facility] [address] Sodium [Moles/Vol] 137 mmol/L Normal 136-146 [facility] Comment on above: Performed By: #### R ENAL, PTH, [id number] #### [facility] [place] [facility] [address] Urea nitrogen [Mass/Vol] 11 mg/dL Normal 9-23 [facility] Comment on above: Performed By: #### R ENAL, PTH, [id number] #### [facility] [place] [facility] [address] [place] [address] Serum or plasma calcium robson urement (mass/volume)Ordered By: Alisia Burciaga on 03-10-2022 Calcium [Mass/Vol] 9.9 mg/dL 8.2-10.2 [facility] Serum or plasma chloride kathe surement (moles/volume)Ordered By: Alisia Burciaga on 03-10-2022 Chloride [Moles/Vol] 102 mmol/L 95-114 [facility] Serum or plasma glucose robson urement (mass/volume)Ordered By: Alisia Burciaga on 03-10-2022 Glucose [Mass/Vol] 88 mg/dL 70-100 [facility] Comment on above: ADA recommended refe rence range Random Glucose Reference Range is dependent on time and content of last meal. Glucose of more than 200 mg/dL in a nonstressed, ambulatory subject supports the diagnosis of Diabetes Mellitus. Serum or plasma intact parat hyroid hormone measurement (mass/volume)Ordered By: Alisia Burciaga on 03-10-2022 Parathyrin.intact [Mass/Vol] 50.9 pg/mL [facility] Serum or plasma potassium me asurement (moles/volume)Ordered By: Alisia Burciaga on 03-10-2022 Potassium [Moles/Vol] 4.6 mmol/L 3.5-5.1 [facility] Serum or plasma sodium measu rement (moles/volume)Ordered By: Alisia Burciaga on 03-10-2022 Sodium [Moles/Vol] 137 mmol/L 136-146 [facility] Serum or plasma total carbon dioxide measurement (moles/volume)Ordered By: Alisia Burciaga on 03-10-2022 CO2 [Moles/Vol] 25.2 mmol/L 22.0-30.0 [facility] Serum or plasma urea nitroge n measurement (mass/volume)Ordered By: Alisia Burciaga on 03-10-2022 Urea nitrogen [Mass/Vol] 11 mg/dL 9-23 [facility] Vitamin D 25 Hydroxy Totalon 03-10-2022 Vitamin D 25 Hydroxy Total 28.9 ng/mL Low 30-100 [facility] Comment on above: Result Comment: MIGDALIA MIN D STATUS 25([place])VITAMIN D RANGE (ng/mL) Deficient <20 Insufficient 20 to <30 Sufficient 30 to 100 Reference: Vanessa MF,Nydia NC, Marisol HESS, et al. Evaluation,treatment, and prevention of vitamin D deficiency; an Endocrine Society clinical practice guideline. JCEM. 2010; 96(7):1911-30. Performed By: #### R ENAL, PTH, [id number] #### [facility] [place] [facility] [address] [place] [address] HCG, Beta Quantitativeon HCG.beta subunit Qn m[IU]/mL [facility] DATA ANALYST Nurse Midwifery-[facility] Holloway DO Work Phone: Comment [...] HCG measurement is performed using the Lida Slinger Access Immunoassay which detects intact HCG and free beta HCG subunit. This test is not indicated for use as a tumor marker. HCG testing is performed using a different test methodology at [facility] than other [facility]. Direct result comparison should only be made within the same method. REF VALUESNON FEMALE <5MALES <5 HCG,BETA-QUANTITATIVEon 05-2 -2021 HCG,BETA-QUANTITATIVE <2 Normal [facility] Comment on above: Result Comment: Low- level [...] performed using a different test methodology at [facility] than other [facility]. Direct result comparison should only be made within the same method. REF VALUES NON FEMALE <5 MALES <5 Performed By: #### H QU #### [address] [id number] PHQ-2 VITALSon 02-14-2022 Adult depression screening assessment No [facility] [address] M DO Work Phone: Fall risk assessment a) No falls within the last year [facility] [place] [address] M DO Work Phone: Last menstrual period start date [id number] [facility] [place] [address] M DO Work Phone: Vital Signs Date Time Vital Sign Value Performing Clinician Facility 11-14-2024 09:54-0500 Body mass index (BMI) [Ratio] 28.35 kg/m2 [facility] DO Work Phone: [facility] 11-14-2024 09:54-0500 Body weight 70.31 kg Reed Pipe DO Work Phone: [facility] 11-14-2024 09:54-0500 Diastolic blood pressure 64 mm[Hg] Reed Pipe DO Work Phone: [facility] 11-14-2024 09:54-0500 Systolic blood pressure 110 mm[Hg] Reed Pipe DO Work Phone: [facility] 10-31-2024 09:04-0500 Body mass index (BMI) [Ratio] 28.13 kg/m2 Reed Pipe DO Work Phone: [facility] 10-31-2024 09:04-0500 Body weight 69.76 kg Reed Pipe DO Work Phone: [facility] 10-31-2024 09:04-0500 Diastolic blood pressure 64 mm[Hg] Reed Pipe DO Work Phone: [facility] 10-31-2024 09:04-0500 Systolic blood pressure 112 mm[Hg] Reed Pipe DO Work Phone: [facility] 10-03-2024 11:52-0500 Body mass index (BMI) [Ratio] 26.89 kg/m2 Ana ARMENTA Work Phone: [facility] 10-03-2024 11:52-0500 Body weight 66.68 kg Ana ARMENTA Work Phone: [facility] 10-03-2024 11:52-0500 Diastolic blood pressure 60 mm[Hg] Ana Polo PA Work Phone: [facility] 10-03-2024 11:52-0500 Systolic blood pressure 110 mm[Hg] Ana Polo PA Work Phone: [facility] 08-31-2024 16:30-0500 Body mass index (BMI) [Ratio] 27.33 kg/m2 Reed Pipe DO Work Phone: [facility] 08-31-2024 16:30-0500 Body weight 67.77 kg Reed Pipe DO Work Phone: [facility] 08-31-2024 16:30-0500 Diastolic blood pressure 60 mm[Hg] Reed Pipe DO Work Phone: [facility] 08-31-2024 16:30-0500 Systolic blood pressure 118 mm[Hg] Reed Pipe DO Work Phone: [facility] 07-29-2024 09:27-0400 Body mass index (BMI) [Ratio] 26.34 kg/m2 Nom Nurse [facility] 07-29-2024 09:27-0400 Body weight 65.32 kg [facility] Nurse [facility] 07-29-2024 09:27-0400 Diastolic blood pressure 68 mm[Hg] [facility] Nurse [facility] 07-29-2024 09:27-0400 Systolic blood pressure 110 mm[Hg] [facility] Nurse [facility] 03-23-2022 11:05-0400 Body height 157.48 cm Sarah Dominguez Other [facility] Other 03-23-2022 11:05-0400 Body mass index (BMI) [Ratio] 24.51 kg/m2 Sarah Angelica Other [facility] Other 03-23-2022 11:05-0400 Body weight 60.78 kg Sarah Angelica Other [facility] Other 03-23-2022 11:05-0400 Diastolic blood pressure 85 mm[Hg] Sarah Angelica Other [facility] Other 03-23-2022 11:05-0400 Systolic blood pressure 129 mm[Hg] Sarah Angelica Other [facility] Other 02-14-2022 14:22-0400 Body height 157.48 cm Sailaja Nicolemargarita Work Phone: [facility] [id number] M DO Work Phone: 02-14-2022 14:22-0400 Body mass index (BMI) [Ratio] 24.55 kg/m2 Sailaja Ren Work Phone: [facility] [address] M DO Work Phone: 02-14-2022 14:22-0400 Body surface area Derived from formula 1.61 m2 Sailaja Ren Work Phone: [facility] [address] M DO Work Phone: 02-14-2022 14:22-0400 Body weight 60.9 kg Sailaja Ren Work Phone: [facility] [id number] M DO Work Phone: 02-14-2022 14:22-0400 Diastolic blood pressure 62 mm[Hg] Sailaja Ren Work Phone: [facility] [address] M DO Work Phone: 02-14-2022 14:22-0400 Systolic blood pressure 126 mm[Hg] Sailaja Ren Work Phone: [facility] [id number] M DO Work Phone: 02-14-2022 14:22-0400 0 1 Sailaja Ren Work Phone: [facility] [address] M DO Work Phone: Comment on above: [employer] Encounters Encounter Date Encounter Type Care Provider Facility Start: 11-14-2024 End: 11-14-2024 Office outpatient visit 15 minutes Reed Pipe DO Work Phone: [facility] Comment on above: Third trimester preg sharon; 31 weeks gestation of ; Diabetes mellitus screening Start: 11-14-2024 End: 11-14-2024 ambulatory REED PIPE Not Available Start: 10-31-2024 End: 10-31-2024 Bamboo flowsheet Reed Pipe DO Work Phone: [facility] Start: 10-31-2024 End: 11-01-2024 Bamboo flowsheet Reed Pipe DO Work Phone: [facility] Start: 10-31-2024 End: 11-01-2024 External Result Encounter Reed Pipe DO Work Phone: [facility] External Department Unsolicited Start: 10-31-2024 End: 10-31-2024 Office outpatient visit 15 minutes Reed Pipe DO Work Phone: [facility] Comment on above: size inconsist ent with dates (Primary Dx); Third trimester ; 29 weeks gestation of ; STD exposure; Vaginal discharge Start: 10-31-2024 End: 10-31-2024 ambulatory REED PIPE Not Available Start: 10-03-2024 End: 10-03-2024 Clinisync Result Encounter Reed Pipe DO Work Phone: [facility] Unsolicited Start: 10-03-2024 End: 10-03-2024 Clinisync Result Encounter Reed Pipe DO Work Phone: [facility] External Department Unsolicited Start: 10-03-2024 End: 10-03-2024 ambulatory Reed Pipe [facility] Work Phone: Start: 10-03-2024 End: 10-03-2024 Departed Referred Reed Pipe DO Work Phone: [facility] [place] [facility] Start: 10-03-2024 End: 10-03-2024 Office outpatient visit 15 minutes Ana ARMENTA Work Phone: [facility] Comment on above: 25 weeks gestation o f ; Second trimester Start: 10-03-2024 End: 10-03-2024 ambulatory ANA POLO Not Available Start: 10-03-2024 End: 10-03-2024 ambulatory REED PIPE Not Available Start: 08-31-2024 End: 08-31-2024 Office outpatient visit 15 minutes Reed Pipe DO Work Phone: [facility] Comment on above: 20 weeks gestation o f ; Second trimester ; Low-lying placenta Start: 08-31-2024 End: 08-31-2024 ambulatory REED PIPE Not Available Start: 08-31-2024 End: 08-31-2024 Bamboo flowsheet Reed Pipe DO Work Phone: [facility] Start: 08-31-2024 End: 08-31-2024 Bamboo flowsheet Reed Pipe DO Work Phone: [facility] Start: 07-29-2024 End: 07-29-2024 ambulatory REED PIPE Not Available Start: 07-29-2024 End: 07-29-2024 Office outpatient visit 5 minutes [facility] Pipe Nurse [facility] Comment on above: GA: 15w4d Start: 07-14-2024 End: 07-14-2024 Clinisync Result Encounter Reed Pipe DO Work Phone: [facility] External Department Unsolicited Start: 07-14-2024 End: 07-14-2024 Clinisync Result Encounter Reed Pipe DO Work Phone: [facility] External Department Unsolicited Start: 11-23-2023 End: 11-23-2023 ambulatory ANA SMALLSEY Not Available Start: 11-16-2023 End: 11-16-2023 ambulatory Reed Pipe Facility:[facility] Start: 11-16-2023 End: 11-16-2023 ambulatory Reed Pipe [facility] [place] [facility] Work Phone: Start: 11-16-2023 End: 11-16-2023 Departed Referred Reed Pipe Work Phone: [facility] [place] [facility] Start: 12-08-2022 ambulatory TALENT ENGINEER SAILAJA Yates ity:[facility]1 Start: 12-04-2022 End: 12-06-2022 Evaluation and management of inpatient DR SLICK MANDUJANO . Facility:[facility] Start: 11-20-2022 End: 11-20-[address] REED BETANCUR . Facility:[facility] Start: 09-12-2022 End: 09-13-[address] REED BETANCUR . Facility:[facility] Start: 08-26-2022 End: 08-26-[address] REED BETANCRU . Facility:[facility] Start: 07-28-2022 End: 07-29-2022 ambulatory TOMA REN Facility:[facility] Start: 05-08-2022 End: 05-09-2022 ambulatory TOMA REN Facility:[facility] Start: 05-03-2022 ambulatory TOMA REN Facil ity:[facility]1 Start: 05-02-2022 End: 05-03-[address] REED BETANCUR . Facility:[facility] Start: 03-23-2022 End: 03-23-2022 ambulatory Sarah Dominguez Other [facility] Other Start: 03-23-2022 Office outpatient ne w 20 minutes Sarah Dominguez [facility] Start: 03-10-2022 End: 03-10-2022 Patient encounter procedure [facility] [place] [facility] Start: 02-26-[address] SLICK MANDUJANO . Fa cility:[facility] Start: 02-15-2022 Chart Update Sailaja Agosto lz Work Phone: [facility] M DO Work Phone: Start: 02-14-2022 Office outpatient ne w 30 minutes Sailaja Ren Work Phone: [facility] [id number] M DO Work Phone: Procedures Date Procedure Procedure Detail Performing Clinician Start: 11-14-2024 Urnls dip stick/tabl et rgnt non-auto w/o micrscp Reed Betancur DO Work Phone: Start: 10-31-2024 RECURRENT VAGINITIS (HTRX) Reed Pipe DO Work Phone: Start: 10-31-2024 Urnls dip stick/tabl et rgnt non-auto w/o micrscp nAa ARMENTA Work Phone: Start: 10-03-2024 ALL CBC WITH AUTO DIFF Reed Pipe DO Work Phone: Start: 10-03-2024 Urnls dip stick/tabl et rgnt non-auto w/o micrscp Ana ARMENTA Work Phone: Start: 08-31-2024 Urnls dip stick/tabl et rgnt non-auto w/o micrscp Reed Pipe DO Work Phone: Start: 07-29-2024 Urnls dip stick/tabl et rgnt non-auto w/o micrscp Reed Pipe DO Work Phone: Start: 07-14-2024 [facility] PREG QUANT HCG Core y Pipe DO Work Phone: Start: 12-04-2022 Delivery of Products of Conception, External Approach DR REED BETANCUR . Start: 12-04-2022 Repair Perineum Skin , External Approach DR REED BETANCUR . Plan of Treatment Date Care Activity Detail Author Start: 11-28-2024 End: 11-28-2024 Patient encounter procedure 11/28/2024 9:50 AM EST Routine [facility] [address] [place] [phone] Ana Polo PA [address] [place] [address] [facility] Start: 11-14-2024 End: 11-14-2025 CBC panel - Blood by Automated count CBC Lab Routine Diabetes mellitus screening Expected: 11/14/2024 (Approximate), Expires: 11/14/2025 [facility] Work Phone: Comment on above: Expected: 11/14/2024 (Approximate), Expires: 11/14/2025 Start: 11-14-2024 End: 11-14-2025 Measurement of glucose 1 hour after glucose challenge for glucose tolerance test Glucose tolerance, 1 hour Lab Routine Diabetes mellitus screening Expected: 11/14/2024 (Approximate), Expires: 11/14/2025 [facility] Comment on above: Expected: 11/14/2024 (Approximate), Expires: 11/14/2025 Start: 11-14-2024 End: 11-14-2024 Patient encounter procedure 11/14/2024 9:30 AM EST Routine [facility] [address] [phone] Reed Betancur DO [address], [place] [id number] [facility] Start: 11-14-2024 End: 11-14-2024 Professional / ancillary services management 11/14/2024 9:00 AM EST Ancillary Procedure [facility] [address] [place] [phone] [facility] Start: 10-31-2024 End: 10-31-2025 US for US OB follow up transabdominal approach Imaging Routine size inconsistent with dates Expected: 10/31/2024, Expires: 10/31/2025 [facility] Healthcare Comment on above: Expected: 10/31/2024 , Expires: 10/31/2025 Start: 10-31-2024 End: 10-31-2024 Patient encounter procedure [facility] Comment on above: Arrived Start: 10-03-2024 Bacteria identified in Urine by Culture Urine Culture [facility] Start: 10-03-2024 Urine culture [facility] Start: 10-03-2024 End: 10-03-2024 Patient encounter procedure 10/03/2024 11:30 AM EST Routine [facility] [address] [place] [phone] Ana Polo PA [address] [place] [address] [facility] Start: 10-03-2024 End: 10-03-2024 Professional / ancillary services management 10/03/2024 10:30 AM EST Ancillary Procedure [facility] [address] [place] [phone] [facility] Start: 08-31-2024 End: 08-31-2024 Patient encounter procedure [facility] Comment on above: Arrived Start: 08-31-2024 End: 08-31-2024 Professional / ancillary services management 08/31/2024 2:30 PM EST Ancillary Procedure [facility] [address] [place] [address] [facility] Start: 08-31-2024 End: 11-29-2024 Alpha fetoprotein, maternal Alpha fetoprotein, maternal Lab Routine 20 weeks gestation of Expected: 08/31/2024 (Approximate), Expires: 11/29/2024 [facility] Work Phone: Comment on above: Expected: 08/31/2024 (Approximate), Expires: 11/29/2024 Start: 08-31-2024 End: 08-31-2025 US for US OB PLACENTA W US OB TRANSVAGINAL Imaging Routine Low-lying placenta Expected: 08/31/2024 (Approximate), Expires: 08/31/2025 [facility] Comment on above: Expected: 08/31/2024 (Approximate), Expires: 08/31/2025 Start: 07-29-2024 End: 07-29-2025 ABO/Rh ABO/Rh Lab Routine Missed menses , unspecified gestational age Expected: 07/29/2024 (Approximate), Expires: 07/29/2025 [facility] Comment on above: Expected: 07/29/2024 (Approximate), Expires: 07/29/2025 Start: 07-29-2024 End: 07-29-2025 Blood type and Indirect antibody screen panel - Blood Type and screen Lab Routine Missed menses , unspecified gestational age Expected: 07/29/2024 (Approximate), Expires: 07/29/2025 [facility] Work Phone: Comment on above: Expected: 07/29/2024 (Approximate), Expires: 07/29/2025 Start: 07-29-2024 End: 07-29-2025 Drugs of abuse panel - Urine by Screen method Rapid drug screen, urine Lab Routine , unspecified gestational age Encounter for supervision of normal first in first trimester Expected: 07/29/2024 (Approximate), Expires: 07/29/2025 [facility] Comment on above: Expected: 07/29/2024 (Approximate), Expires: 07/29/2025 Start: 07-29-2024 End: 07-29-2025 US for [facility] Comment on above: Expected: 07/29/2024 (Approximate), Expires: 07/29/2025 Start: 07-29-2024 End: 07-29-2025 US Pelvis transvaginal US OB transvaginal Imaging Routine Missed menses Expected: 07/29/2024 (Approximate), Expires: 07/29/2025 [facility] Comment on above: Expected: 07/29/2024 (Approximate), Expires: 07/29/2025 Start: 05-29-2024 Influenza vaccination Influenza Vacc ine (#1) [facility] Bacteria identified in Urine by Culture Urine culture Microbiology Routine Missed menses Ordered: 07/29/2024 [facility] Comment on above: Ordered: 07/29/2024 CBC W Auto Different ial panel - Blood CBC and differential Lab Routine Missed menses , unspecified gestational age Ordered: 07/29/2024 [facility] Comment on above: Ordered: 07/29/2024 CHLAMYDIA TRACHOMATI S (GENITO/STI) CHLAMYDIA TRACHOMATIS (GENITO/STI) Lab Routine STD exposure Ordered: 10/31/2024 [facility] Comment on above: Ordered: 10/31/2024 Hemoglobin A1c/Hemoglobin.total in Blood Hemoglobin A1c Lab Routine Missed menses , unspecified gestational age Ordered: 07/29/2024 [facility] Comment on above: Ordered: 07/29/2024 Hepatitis B virus surface Ag [Presence] in Serum or Plasma by Immunoassay Hepatitis B surface antigen Lab Routine Missed menses , unspecified gestational age Ordered: 07/29/2024 [facility] Comment on above: Ordered: 07/29/2024 Hepatitis C virus Ab [Presence] in Serum or Plasma by Immunoassay Hepatitis C antibody Lab Routine Missed menses , unspecified gestational age Ordered: 07/29/2024 [facility] Comment on above: Ordered: 07/29/2024 HIV-1/HIV-2 antigen/antibody combination immunoassay HIV-1 and HIV-2 antibodies Lab Routine Missed menses , unspecified gestational age Ordered: 07/29/2024 [facility] Comment on above: Ordered: 07/29/2024 Neisseria gonorrhoea e DNA [Presence] in Unspecified specimen by PEPE with probe detection Neisseria gonorrhea DNA probe, direct Lab Routine STD exposure Ordered: 10/31/2024 [facility] Comment on above: Ordered: 10/31/2024 Reagin Ab [Presence] in Serum by RPR RPR Lab Routine Missed menses , unspecified gestational age Ordered: 07/29/2024 [facility] Comment on above: Ordered: 07/29/2024 Rubella antibody, IgG Rubella an tibody, IgG Lab Routine Missed menses , unspecified gestational age Ordered: 07/29/2024 [facility] Comment on above: Ordered: 07/29/2024 SURESWAB(R) ADVANCED VAGINITIS PLUS, TMA SURESWAB(R) ADVANCED VAGINITIS PLUS, TMA Pathology and Cytology Routine Vaginal discharge Ordered: 10/31/2024 [facility] Work Phone: Comment on above: Ordered: 10/31/2024 Payers Date Payer Category Payer Medicaid [id number] 2024 Medicaid [id number] 1996 Unknown [id number] 2.16.84 0.1.854663.3.579.2.593 1996 Unknown [id number] 2.16.84 0.1.251240.3.579.2.593 1996 Unknown [id number] 2.16.84 0.1.866063.3.579.2.593 1996 Unknown [id number] 2.16.84 0.1.848622.3.579.2.593 1996 Unknown [id number] 2.16.84 0.1.950564.3.579.2.593 1996 Unknown [id number] 2.16.84 0.1.584443.3.579.2.593 1996 Unknown [id number] 2.16.84 0.1.330684.3.579.2.593 1996 Unknown [id number] 2.16.84 0.1.471634.3.579.2.593 1996 Unknown [id number] 2.16.84 0.1.718082.3.579.2.593 1996 Unknown [id number] 2.16.84 0.1.610975.3.579.2.593 1996 Unknown [id number] 2.16.84 0.1.835330.3.579.2.1259 1996 Unknown [id number] 2.16.84 0.1.078513.3.579.2.1259 1996 Unknown [id number] 2.16.84 0.1.686717.3.579.2.1259 1996 Unknown [id number] 2.16.84 0.1.582805.3.579.2.1259 1996 Unknown [id number] 2.16.84 0.1.483463.3.579.2.1259 1996 Unknown [id number] 2.16.84 0.1.477571.3.579.2.1259 1996 Unknown [id number] 2.16.84 0.1.366280.3.579.2.1259 1996 Unknown [id number] 2.16.84 0.1.953955.3.579.2.1259 1959 Self-pay [id number] 1959 Unknown [id number] Unknown ANTHEM Unknown [id number] 2.16.8 40.1.834948.3.579.2.531 Social History Date Type Detail Facility Tobacco smoking status NHIS Unknown if ever smoked [facility] Work Phone: Start: 1995 Sex Assigned At Female [facility] Sex Assigned At [facility] [employer] Other Tobacco smoking status NHIS Tobacco smoking consumption unknown [facility] Start: 1996 Sex assigned at Not on file [facility] Start: 04-25-2024 [facility] Start: 09-10-2018 Tobacco smoking status NHIS Never smoked tobacco (finding) [facility] Start: 10-05-2024 Sex Female (finding) [facility] Clinical Notes 02-14-2022 to 11-14-2024 Tatianna Mock [facility] - 11/14/2024 9:30 AM Tomás Ling, [facility] - 10/31/2024 8:50 AM GEOVANY Morris - 10/03/2024 11:30 AM Lynette Angel [facility] - 08/31/2024 3:40 PM EST Note Date & Type Note Facility 11-14-2024 History of Presen t illness Narrative Reason for Appointment: Patient ID: Susana Newman is a 29 y.o. female who presents for Routine Visit Patient presents today for Return OB appointment. MEDICATIONS Current Outpatient Medications Medication Instructions Vit-Fe Fumarate-FA (PNV Plus Multivitamin) 27-1 MG tablet Every 24 hours ALLERGIES Allergies Allergen Reactions Amoxicillin Unknown Penicillin G Unknown PROBLEMS Active Ambulatory Problems Diagnosis Date Noted No Active Ambulatory Problems Resolved Ambulatory Problems Diagnosis Date Noted No Resolved Ambulatory Problems No Additional Past Medical History HISTORY PAST MEDICAL HISTORY SOCIAL HISTORY No past medical history on file. Social History Tobacco Use Smoking status: Not on file Smokeless tobacco: Not on file Substance Use Topics Alcohol use: Not on file Drug use: Not on file FAMILY HISTORY No family history on file. SURGICAL HISTORY Past Surgical History: Procedure Laterality Date SECTION, CLASSIC 11/16/2023 REVIEW OF SYSTEMS Review of Systems: Review of Systems All other systems reviewed and are negative. OBJECTIVE Objective: Physical Exam Constitutional: Appearance: Normal appearance. She is well-developed. Cardiovascular: Rate and Rhythm: Normal rate and regular rhythm. Pulmonary: Effort: Pulmonary effort is normal. Breath sounds: Normal breath sounds. Abdominal: General: Bowel sounds are normal. There is no distension. Palpations: Abdomen is soft. Tenderness: There is no abdominal tenderness. There is no guarding or rebound. Musculoskeletal: General: No swelling. Normal range of motion. Right lower leg: No edema. Left lower leg: No edema. Neurological: Mental Status: She is alert and oriented to person, place, and time. Skin: General: Skin is warm and dry. Psychiatric: Mood and Affect: Mood normal. Behavior: Behavior normal. Vitals and nursing note reviewed. Exam conducted with a planograph operator present. Vitals: Estimated body mass index is 28.35 kg/m as calculated from the following: Height as of 01/15/23: 5' 2 . Weight as of this encounter: 155 lb. BP: 110/64 No LMP recorded (lmp unknown). Patient is . ASSESSMENT & PLAN ICD-10-CM 1. Third trimester Z34.93 POCT urinalysis dipstick manually resulted 2. 31 weeks gestation of Z3A.31 3. Diabetes mellitus screening Z13.1 CBC Glucose tolerance, 1 hour CBC Glucose tolerance, 1 hour Patient presents today for a routine obstetrics appointment. Patient is currently 31w0d with a Estimated Date of Delivery: 01/16/25. Patient given order for 1 hour gtt and CBC to be drawn prior to next appointment. Patient to return to clinic in 2 weeks. Documented by Tatianna Mock LPN on behalf of: Reed Betancur DO documented in this encounter [facility] 10-31-2024 History of Presen t illness Narrative Reason for Appointment: Patient ID: Susana Newman is a 29 y.o. female who presents for Routine Visit Patient presents today for Return OB appointment. MEDICATIONS Current Outpatient Medications Medication Instructions Vit-Fe Fumarate-FA (PNV Plus Multivitamin) 27-1 MG tablet Every 24 hours ALLERGIES Allergies Allergen Reactions Amoxicillin Unknown Penicillin G Unknown PROBLEMS Active Ambulatory Problems Diagnosis Date Noted No Active Ambulatory Problems Resolved Ambulatory Problems Diagnosis Date Noted No Resolved Ambulatory Problems No Additional Past Medical History HISTORY PAST MEDICAL HISTORY SOCIAL HISTORY No past medical history on file. Social History Tobacco Use Smoking status: Not on file Smokeless tobacco: Not on file Substance Use Topics Alcohol use: Not on file Drug use: Not on file FAMILY HISTORY No family history on file. SURGICAL HISTORY Past Surgical History: Procedure Laterality Date SECTION, CLASSIC 11/16/2023 REVIEW OF SYSTEMS Review of Systems: Review of Systems OBJECTIVE Objective: OBGyn Exam Vitals: Estimated body mass index is 28.13 kg/m as calculated from the following: Height as of 01/15/23: 5' 2 . Weight as of this encounter: 153 lb 12.8 oz. BP: 112/64 No LMP recorded (lmp unknown). Patient is . ASSESSMENT & PLAN ICD-10-CM 1. Third trimester Z34.93 POCT urinalysis dipstick manually resulted 2. 29 weeks gestation of Z3A.29 POCT urinalysis dipstick manually resulted 3. STD exposure Z20.2 CHLAMYDIA TRACHOMATIS (GENITO/STI) Neisseria gonorrhea DNA probe, direct 4. Vaginal discharge N89.8 SURESWAB(R) ADVANCED VAGINITIS PLUS, TMA Return OB/Annual Exam: Patient presents today for a routine obstetrics appointment. Patient is currently 29w0d . Patient is doing well and states she has no complaints. Cultures were obtained without difficulty. Orders Placed This Encounter Procedures CHLAMYDIA TRACHOMATIS (GENITO/STI) Neisseria gonorrhea DNA probe, direct POCT urinalysis dipstick manually resulted Follow Up: Patient is to return to our office in 4 weeks for routine OB appointment Documented by Cathy Ling LPN on behalf of: mannie burks documented in this encounter [facility] 10-03-2024 History of Presen t illness Narrative Reason for Appointment: Patient ID: Susana Newman is a 29 y.o. female who presents for Routine Visit Patient presents today for Return OB appointment. MEDICATIONS Current Outpatient Medications Medication Instructions Vit-Fe Fumarate-FA (PNV Plus Multivitamin) 27-1 MG tablet Every 24 hours ALLERGIES Allergies Allergen Reactions Amoxicillin Unknown Penicillin G Unknown PROBLEMS Active Ambulatory Problems Diagnosis Date Noted No Active Ambulatory Problems Resolved Ambulatory Problems Diagnosis Date Noted No Resolved Ambulatory Problems No Additional Past Medical History HISTORY PAST MEDICAL HISTORY SOCIAL HISTORY History reviewed. No pertinent past medical history. Social History Tobacco Use Smoking status: Not on file Smokeless tobacco: Not on file Substance Use Topics Alcohol use: Not on file Drug use: Not on file FAMILY HISTORY No family history on file. SURGICAL HISTORY Past Surgical History: Procedure Laterality Date SECTION, CLASSIC 11/16/2023 REVIEW OF SYSTEMS Review of Systems: Review of Systems Constitutional: Negative. HENT: Negative. Eyes: Negative. Respiratory: Negative. Cardiovascular: Negative. Gastrointestinal: Negative. Musculoskeletal: Negative. Skin: Negative. Neurological: Negative. Psychiatric/Behavioral: Negative. All other systems reviewed and are negative. Hematological: Negative. Endocrine: Negative. OBJECTIVE Objective: Physical Exam Constitutional: Appearance: Normal appearance. She is normal weight. HENT: Head: Normocephalic. Cardiovascular: Rate and Rhythm: Normal rate. Pulses: Normal pulses. Pulmonary: Effort: Pulmonary effort is normal. Breath sounds: Normal breath sounds. Abdominal: Palpations: Abdomen is soft. Musculoskeletal: General: Normal range of motion. Neurological: General: No focal deficit present. Mental Status: She is alert and oriented to person, place, and time. Psychiatric: Mood and Affect: Mood normal. Behavior: Behavior normal. Thought Content: Thought content normal. Judgment: Judgment normal. Vitals and nursing note reviewed. Vitals: Estimated body mass index is 26.89 kg/m as calculated from the following: Height as of 01/15/23: 5' 2 . Weight as of this encounter: 147 lb. BP: 110/60 No LMP recorded (lmp unknown). Patient is . ASSESSMENT & PLAN ICD-10-CM 1. 25 weeks gestation of Z3A.25 POCT urinalysis dipstick manually resulted 2. Second trimester Z34.92 POCT urinalysis dipstick manually resulted Return OB: Patient presents today for a routine obstetrics appointment. Patient is currently 25w0d . Patient states she is doing well but has complaints of being tired due to current . Patient has verbalizes frequent movement. labor precautions was discussed/given and patient was instructed to perform kick counts three times a day. Orders Placed This Encounter Procedures POCT urinalysis dipstick manually resulted Follow Up: Patient is to return to office in 2 week for routine OB appointment. Documented by GEOVANY Burks on behalf of: GEOVANY Burks documented in this encounter [facility] 08-31-2024 History of Presen t illness Narrative Reason for Appointment: Patient ID: Susana Newman is a 29 y.o. female who presents for Routine Visit Patient presents today for Return OB appointment. MEDICATIONS Current Outpatient Medications Medication Instructions Vit-Fe Fumarate-FA (PNV Plus Multivitamin) 27-1 MG tablet Every 24 hours ALLERGIES Allergies Allergen Reactions Amoxicillin Unknown Penicillin G Unknown PROBLEMS Active Ambulatory Problems Diagnosis Date Noted No Active Ambulatory Problems Resolved Ambulatory Problems Diagnosis Date Noted No Resolved Ambulatory Problems No Additional Past Medical History HISTORY PAST MEDICAL HISTORY SOCIAL HISTORY No past medical history on file. Social History Tobacco Use Smoking status: Not on file Smokeless tobacco: Not on file Substance Use Topics Alcohol use: Not on file Drug use: Not on file FAMILY HISTORY No family history on file. SURGICAL HISTORY Past Surgical History: Procedure Laterality Date SECTION, CLASSIC 11/16/2023 REVIEW OF SYSTEMS Review of Systems: Review of Systems Constitutional: Negative. HENT: Negative. Eyes: Negative. Respiratory: Negative. Cardiovascular: Negative. Gastrointestinal: Negative. Genitourinary: Negative. Musculoskeletal: Negative. Skin: Negative. Neurological: Negative. All other systems reviewed and are negative. Hematological: Negative. Endocrine: Negative. Allergic/Immunologic: Negative. OBJECTIVE Objective: Physical Exam Constitutional: Appearance: Normal appearance. She is well-developed. Cardiovascular: Rate and Rhythm: Normal rate and regular rhythm. Pulmonary: Effort: Pulmonary effort is normal. Breath sounds: Normal breath sounds. Abdominal: General: Bowel sounds are normal. There is no distension. Palpations: Abdomen is soft. Tenderness: There is no abdominal tenderness. There is no guarding or rebound. Musculoskeletal: General: No swelling. Normal range of motion. Right lower leg: No edema. Left lower leg: No edema. Neurological: Mental Status: She is alert and oriented to person, place, and time. Skin: General: Skin is warm and dry. Psychiatric: Mood and Affect: Mood normal. Behavior: Behavior normal. Vitals and nursing note reviewed. Exam conducted with a planograph operator present. Vitals: Estimated body mass index is 27.33 kg/m as calculated from the following: Height as of 01/15/23: 5' 2 . Weight as of this encounter: 149 lb 6.4 oz. BP: 118/60 No LMP recorded (lmp unknown). Patient is . ASSESSMENT & PLAN ICD-10-CM 1. 20 weeks gestation of Z3A.20 POCT urinalysis dipstick manually resulted Alpha fetoprotein, maternal Alpha fetoprotein, maternal CANCELED: Pap Smear CANCELED: SURESWAB(R) ADVANCED VAGINITIS PLUS, TMA CANCELED: CHLAMYDIA TRACHOMATIS (GENITO/STI) CANCELED: Neisseria gonorrhea DNA probe, direct CANCELED: Pap Smear 2. Second trimester Z34.92 3. Low-lying placenta O44.40 Patient presents today for a routine obstetrics appointment. Patient is currently 20w2d with a Estimated Date of Delivery: 01/16/25.Reviewed anatomy scan with pt in detail low lying placenta, given repeat to have obtained in 4 weeks. All anatomy seen. Pt is a previous section, considering . Documented by Tatiana Angel LPN on behalf of: Reed Betancur DO documented in this encounter [facility] 07-29-2024 History of Presen t illness Narrative Reason for Appointment: Patient ID: Susana Newman is a 29 y.o. female who presents for Initial Visit Patient presents today for a Nurse OB Intake appointment. Patient is 15w4d with a Estimated Date of Delivery: 01/16/25 OB History Para Term AB Living 2 1 SAB IAB Ectopic Multiple Live Births # Outcome Date GA Lbr Waqas/2nd Weight Sex Type Anes PTL Lv 2 Current 1 Current Medications: has a current medication list which includes the following prescription(s): pnv plus multivitamin. Medical History: Active Ambulatory Problems Diagnosis Date Noted No Active Ambulatory Problems Resolved Ambulatory Problems Diagnosis Date Noted No Resolved Ambulatory Problems No Additional Past Medical History No family history on file. Social History Tobacco Use Smoking status: Not on file Smokeless tobacco: Not on file Substance Use Topics Alcohol use: Not on file Drug use: Not on file Past Surgical History: Procedure Laterality Date SECTION, CLASSIC 11/16/2023 Allergies Allergen Reactions Amoxicillin Unknown Penicillin G Unknown Vitals: Estimated body mass index is 26.34 kg/m as calculated from the following: Height as of 01/15/23: 5' 2 . Weight as of this encounter: 144 lb. BP: 110/68 No LMP recorded (lmp unknown). Patient is . Assessment/Plan Diagnoses and all orders for this visit: Missed menses - Type and screen; Future - ABO/Rh; Future - CBC and differential - Hemoglobin A1c - RPR - Rubella antibody, IgG - Hepatitis B surface antigen - Hepatitis C antibody - HIV-1 and HIV-2 antibodies - Urine culture - POCT , urine manually resulted - POCT urinalysis dipstick manually resulted - US OB > 14 WEEKS; Future , unspecified gestational age - Type and screen; Future - ABO/Rh; Future - CBC and differential - Hemoglobin A1c - RPR - Rubella antibody, IgG - Hepatitis B surface antigen - Hepatitis C antibody - HIV-1 and HIV-2 antibodies - Rapid drug screen, urine; Future Encounter for supervision of normal first in first trimester - Rapid drug screen, urine; Future Screening, , for anatomic survey - US OB ANATOMY SINGLE W US OB CERVICAL LENGTH; Future Nurse Note: OB Intake: Patient presents today for first OB visit. Patients history has been reviewed in great detail including any potential risks. Patient signed consent forms and patient desires testing in both trimesters. Patient currently has no complaints and has been advised to drink 6-8 glasses of water a day, eat no raw or undercooked meat, and stay away from [facility]. Patient has also been advised to not change litter boxes and eat 6 small meals a day. Patient has been consulted regarding the do's and don'ts of . Patient was given labs and all questions and concerns were answered. Follow Up: Patient is to return in 4 weeks for routine OB appointment. Follow Up: Patient is to have labs drawn at directed and return to office for initial OB appointment with provider. Patient may call office as needed with any concerns or questions. Nurse Visit Completed by: Ethel Chung documented in this encounter [facility] 03-23-2022 Evaluation note Encounter Date Diagnosis Assessment [...] Contact dermatitis home care material was printed [facility] Other 05-20-2022 NoteOrders HCG, Beta Quantitative; Status:In Progress - Specimen/Data Collected,Retrospective Authorization; Done: 14Feb2022 Provider Impressions New pt presents today to discuss her situation. Pt's LMP was 09/09/21 w/ a history of monthly cycles. She had a positive test . Then had bleeding in early October, but continued to have positive urine HCGs. Pt was seeing her FOB's mother who is a inner layer scrubber tender who heard a heartbeat w/ a doppler and her abdomen was getting bigger. Three days ago, pt went to a doctor out near her home in [place] and was told that she was not . An ultrasound and test were negative. No info was found in the [facility]. We discussed the fact that most likely her bleeding in Oct was a SAB of an early and thather HCGs took a while to come down [...] care (V22.1) (Z34.90) Vitals Vital Signs Recorded: [id number] 02:22PM Xypezisl570 Tkykfvpcz95 Height5 ft 2 in Pqftbu924 lb 4 oz BMI Ktnvncdbge65.55 kg/m2 BSA Calculated1.61 PHQ-2 #1. Over the last 2 weeks have you felt down, depressed or hopeless? (If yes, answer PHQ-9 below)No PHQ-2 #2. Over the last 2 weeks have you felt little interest or pleasure in doing things? (If yes,answer PHQ-9 below)No Fall Screeninga) No falls within the last year [id number] Pain Scale0 Physical Exam Constitutional: Alert and in no acute distress. Well developed, well nourished Eyes: Normal external exam - nonicteric sclera, extraocular movements intact (EOMI) and no ptosis. Pulmonary: No respiratory distress Abdomen: soft nontender; no abdominal mass palpated, no organomegaly and no hernias Signatures Electronically signed by : KOURTNEY Cummings; Feb 14 2022 3:16PM EST (Author) TouchworksEvaluation noteNo assessment information availableSelect [facility] Work Phone: Evaluation note* Diagnosis Missed menses , unspecified gestational age Encounter for supervision of normal first in first trimester Screening, , for anatomic survey Encounter for anatomic survey documented in this encounter [facility]* Diagnosis 20 weeks gestation of Second trimester state, incidental Low-lying placenta Hemorrhage from placenta previa, unspecified as to episode of care documented in this encounter [facility]* Diagnosis 25 weeks gestation of Second trimester state, incidental documented in this encounter [facility]* Diagnosis size inconsistent with dates- Primary Third trimester state, incidental 29 weeks gestation of STD exposure Vaginal discharge Leukorrhea, not specified as infective documented in this encounter [facility]* Diagnosis Third trimester state, incidental 31 weeks gestation of Diabetes mellitus screening Screening for diabetes mellitus documented in this encounter [facility] general Narrative - Reported* Type Description Date Surgical History right ear tube placed [facility] Other Chief Complaint Pt. states that she [...] Purpose Family History No Family History Records Found Relationship Condition Age at Onset Recorded Date/T lewis father Heart disease Unknown Advance Directives No Advanced Directives Records Found Advance Directive Response Recorded Date/ Time Advance Directives No March 10 11:04am Advance Directive Response Recorded Date/ Time Advance Directives No October 13, 2018 8:12am Chief Complaint and Reason for Visit Chief Complaint E83.52 E55.9 E21.11 Chief Complaint Unknown Chief Complaint Admit Date Unknown October 03, 2024 1: 10pm Additional Source Comments INFORMATION SOURCE (unrecogn ized section and content) DATE CREATED AUTHOR 02/16/2022 [facility] DATE CREATED AUTHOR AUTHOR'S ORGANIZ ATION 02/16/2022 [employer] DATE CREATED AUTHOR AUTHOR'S ORGANIZ ATION 03/10/2022 [facility] DATE CREATED AUTHOR AUTHOR'S ORGANIZ ATION 02/11/2023 [facility] DATE CREATED AUTHOR AUTHOR'S ORGANIZ ATION 11/17/2023 [facility] DATE CREATED AUTHOR AUTHOR'S ORGANIZ ATION 10/10/2024 [facility] DATE CREATED AUTHOR AUTHOR'S ORGANIZ ATION 11/15/2024 [facility] EPIC Care Teams (unrecognized sec tion and content) Team Status: Inactive Member Role Status Dates NON STAFF Primary Care Provider Active Alisia Burciaga MD Attending Provider Active Team Status: Active Member Role Status Dates NON STAFF Primary Care Provider Active Team Status: Inactive Member Role Status Dates Reed Betancur Attending Provider Active Start: Chelsea julien 2023 End: November 16, 2023 Team Status: Inactive Member Role Status Dates Reed Betancur DO Attending Provider Active Start : October 03, 2024 End: October 03, 2024 Goals (unrecognized section and content) Goals may be documented in a n alternate sectionNo InformationGoals may be documented in an alternate sectionGoals may be documented in an alternate section REASON FOR VISIT (unrecogniz ed section and content) Reason Comments Initial Visit Reason Comments Routine Visit FOR RECORDS PERTAINING TO PATIENTS WHO ARE [...] BE BASED ON THE PRIMARY CLINICAL RECORDS. [facility] [employer] [facility]. provides no warranty or guarantee of the accuracy or completeness of information in this document.
[2024-11-19 07:56] LABS: Basophils Percent Auto 0.2 % (0.2-2.0); Eosinophils Absolute Auto 0.1 10^3/uL (0.0-0.7); Hemoglobin 12.3 g/dL (12.0-16.0); Immature Granulocytes Abs Auto 0.04 10^3/uL (0.00-0.03); Immature Granulocytes Pct Auto 0.5 % (0.0-0.5); Lymphocytes Absolute Auto 1.2 10^3/uL (1.2-3.8); Lymphocytes Percent Auto 14.1 % (20.5-60.0); Mean Corpuscular HGB Conc 35.1 g/dL (29.9-35.2); Mean Corpuscular Hemoglobin 32.5 pg (26.7-34.0); Mean Corpuscular Volume 92.3 fL (81.0-99.0); Mean Platelet Volume 9.4 fL (9.5-13.5); Monocytes Absolute Auto 0.4 10^3/uL (0.3-0.8); Neutrophils Percent Auto 79.2 % (43.0-75.0); Platelet Count 184 10^3/uL (150-450); Red Blood Count 3.79 10^6/uL (4.20-5.40); Red Cell Distribution Width 12.6 % (11.0-15.0); White Blood Count 8.8 10^3/uL (4.0-11.0)
[2024-11-19 08:25] LABS: Glucose 1 Hour 86 mg/dL (<130)
== END 2024-11-19 06:47 | disposition home or self-care (01) ==
LOC: LAB 06:46
PROVIDERS: Visit Provider Obstetrics & Gynecology
DX: Z13.1 Encounter for screening for diabetes mellitus (principal)
CPT/HCPCS: 36415; 82950; 85025

== ENCOUNTER 2024-12-20 12:13 | Outpatient (REF) | payer MEDICAID, SELFPAY ==
--- OUTSIDE RECORDS SUMMARY | 2024-12-20 12:35 | XMS_ITS | CCD ---
Author Organization [facility] Care Team Providers Care Fabrication Mig Welder Name Role Phone Sailaja Ren Tiffanie Unavailable NON STAFF Primary Care Provider UnavailMD Alisia Smith Attending Provider [phone] Sarah Dominguez Unavailable PIPE ., DR MCBRIDE Consulting Unavailable PIPE ., DR MCBRIDE Attending Unavailable AICHHOLZ, WAREHOUSE AND RECEIVING SUPERVISOR SAILAJA Primary Care Unavailable PIPE ., DR MCBRIDE Admitting Unavailable ZIEBER, DR GM Rae Consulting Unavailable KARASIK ., DR KRUGER Consulting Unavailabl e KARASIK ., DR KRUGER Attending Unavailabl e AICHHOLZ, WAREHOUSE AND RECEIVING SUPERVISOR SAILAJA Primary Care Unavailable KARASIK ., DR KRUGER Admitting Unavailabl e PIPE ., DR MCBRIDE Procedure Practitioner Unavail able PIPE ., DR MCBRIDE Consulting Unavailable KARASIK ., DR KRUGER Admitting Unavailabl e KARASIK ., DR KRUGER Attending Unavailabl e AICHHOLZ, WAREHOUSE AND RECEIVING SUPERVISOR SAILAJA Primary Care Unavailable AICHHOLZ, WAREHOUSE AND RECEIVING SUPERVISOR SAILAJA Primary Care Unavailable PIPE ., DR MCBRIDE Attending Unavailable PIPE ., DR MCBRIDE Admitting Unavailable AICHHOLZ, WAREHOUSE AND RECEIVING SUPERVISOR SAILAJA Primary Care Unavailable PIPE ., DR MCBRIDE Attending Unavailable PIPE ., DR MCBRIDE Admitting Unavailable PIPE ., DR MCBRIDE Consulting Unavailable AICHHOLZ, WAREHOUSE AND RECEIVING SUPERVISOR SAILAJA Primary Care Unavailable PIPE ., DR MCBRIDE Attending Unavailable PIPE ., DR MCBRIDE Admitting Unavailable PIPE ., DR MCBRIDE Consulting Unavailable AICHHOLZ, WAREHOUSE AND RECEIVING SUPERVISOR SAILAJA Primary Care Unavailable PIPE ., DR MCBRIDE Attending Unavailable PIPE ., DR MCBRIDE Admitting Unavailable PIPE ., DR MCBRIDE Consulting Unavailable AICHHOLZ, WAREHOUSE AND RECEIVING SUPERVISOR SAILAJA Primary Care Unavailable PIPE ., DR MCBRIDE Attending Unavailable PIPE ., DR MCBRIDE Admitting Unavailable AICHOLZ, WAREHOUSE AND RECEIVING SUPERVISOR SAILAJA Primary Care Unavailable PIPE ., DR MCBRIDE Attending Unavailable PIPE ., DR MCBRIDE Admitting Unavailable PIPE ., DR MCBRIDE Consulting Unavailable ZIEBER, DR GM Rae Consulting Unavailable AICHHOLZ, WAREHOUSE AND RECEIVING SUPERVISOR SAILAJA Primary Care Unavailable PIPE ., DR MCRBIDE Attending Unavailable PIPE ., DR MCBRIDE Consulting Unavailable PIPE ., DR MCBRIDE Admitting Unavailable Pipe, Luan Attending Provider [phone] Pipe, Luan Attending Unavailable Pipe, Luan Admitting Unavailable Unavailable Primary Care Provider Unavailkeya e PipeLuan ahumada DO Attending Provider [phone] Pipe, Luan Admitting Unavailable Pipe, Luan Attending Unavailable Pipe, Luan Attending Unavailable Pipe, Luan Admitting Unavailable PIPE, LUAN Attending Unavailable PIPE, LUNA Attending Unavailable ANA POLO Attending Unavailable PIPE, LUAN Attending Unavailable PIPE, LUAN Attending Unavailable ANA POLO Attending Unavailable Allergies Allergy Classification Reported Allergen(s) Allergy Type Date of Onset Reaction(s) Facility (20 sources) Amoxicillin Drug Allergy 4 hives, Unknown [facility] (1 source) Amoxicillin Drug Allergy 3 [facility] (19 sources) Penicillin G Drug Allergy 4 Unknown [facility] Healthcare (1 source) Amoxicillin Drug Allergy 4 [facility] Medications Current Medications Medication Drug Class(es) [...] D2) (Vitamin D2) 50,000 unit Capsule Active 27405 UNIT PO every week October 05, 2018 12:00am predniSONE 20 mg oral tablet (1 source) Start: 03-23-2022 take 1 tablet by mouth every twelve hours predniSONE 20 MG 1 tablet Orally 2 times a day for 5 day(s) Feb, Active Vit-Fe Fumarate-FA (PNV Plus Multivitamin) 27-1 MG tablet (19 sources) Vit-Fe Fumarate-FA (PNV Plus Multivitamin) 27-1 [...] [31 weeks gestation of ] 11-14-2024 Episodic Residual codes; unclassified (2 sources) Gestation period, 33 weeks; Translations: [33 weeks gestation of ] 11-28-2024 Episodic Residual codes; unclassified (1 source) Gestation period, 35 weeks; Translations: [35 weeks gestation of ] 12-13-2024 Episodic Past or Other Problems Problem Classification [...] Test Name Value Interpretation Reference Range Facility Urinalysis macro (dipstick) panel (U)on 12-13-2024 Bilirubin, UA Negative Negative - 4(70) +++ mg/dL [facility] Blood, UA Negative Negative - 50 Serafin/mcL [facility] Clarity, UA Clear [facility] Color, UA Yellow [facility] Glucose, UA Negative Negative - 1999(110) ++++ mg/dL [facility] Interpretation and review of laboratory results Abnormal [facility] Ketones, UA Negative Negative - 160(16) ++++ mg/dL [facility] Leukocytes, UA Positive Negative - 500+++ Princess/mcL [facility] Comment on above: small Nitrite, UA Negative Negative - Positive [facility] pH, UA 7 5 - 9 [facility] Protein, UA Negative Negative - 1999(20) ++++ mg/dL [facility] Spec Grav, UA 1.015 1 - 1.03 [facility] Urobilinogen, UA 0.2 0.2 - 12 mg/dL [facility] Urinalysis macro (dipstick) panel (U)on 11-28-2024 Bilirubin, UA Negative Negative - 4(70) +++ mg/dL [facility] Blood, UA Negative Negative - 50 Serafin/mcL [facility] Clarity, UA Clear [facility] Color, UA Yellow [facility] Glucose, UA Negative Negative - 1999(110) ++++ mg/dL [facility] Interpretation and review of laboratory results Abnormal [facility] Ketones, UA Negative Negative - 160(16) ++++ mg/dL [facility] Leukocytes, UA Positive Negative - 500+++ Princess/mcL [facility] Comment on above: small Nitrite, UA Negative Negative - Positive [facility] pH, UA 7 5 - 9 [facility] Protein, UA Negative Negative - 1999(20) ++++ mg/dL [facility] Spec Grav, UA 1.02 1 - 1.03 [facility] Urobilinogen, UA 0.2 0.2 - 12 mg/dL [facility] ALL CBC WITH AUTO DIFFon BASOPHILS ABSOLUTE AUTO 0 [facility] Basophils/100 WBC (Bld) 0.2 % 0.2 - 2.0 % [facility] Eosinophils/100 WBC (Bld) 1 % 0.9 - 7.0 % [facility] Erythrocyte distribution width (RBC) [Ratio] 12.6 % 11.0 - 15.0 % [facility] Hematocrit (Bld) [Volume fraction] 35 % Low 36.0 - 48.0 % [facility] Hemoglobin (Bld) [Mass/Vol] 12.3 g/dL 12.0 - 16.0 g/dL [facility] IMMATURE GRANULOCYTES ABS AUTO 0.04 High [facility] Immature granulocytes/100 WBC (Bld) 0.5 % 0.0 - 0.5 % [facility] Interpretation and review of laboratory results Abnormal [facility] LYMPHOCYTES ABSOLUTE AUTO 1.2 [facility] Lymphocytes/100 WBC (Bld) 14.1 % Low 20.5 - 60.0 % [facility] MCH (RBC) [Entitic mass] 32.5 pg 26.7 - 34.0 pg [facility] MCHC (RBC) [Mass/Vol] 35.1 g/dL 29.9 - 35.2 g/dL [facility] MCV (RBC) [Entitic vol] 92.3 fL 81.0 - 99.0 fL [facility] MONOCYTES ABSOLUTE AUTO 0.4 [facility] Monocytes/100 WBC (Bld) 5 % 1.7 - 12.0 % [facility] NEUTROPHILS ABSOLUTE AUTO 7 High [facility] Neutrophils/100 WBC (Bld) 79.2 % High 43.0 - 75.0 % [facility] Platelet mean volume (Bld) [Entitic vol] 9.4 fL Low 9.5 - 13.5 fL [facility] TBH EO # 0.1 [facility] TBH PLT 184 [facility] TB RBC 3.79 Low [facility] TB WBC 8.8 [facility] US OB FOLLOW UP TRANSABDOMIN AL APPROACHon [...] 1805 gm / 3 lbs, 15 oz (6846-6774 gm) [place] Normal: 1751 gm (2175-5694 gm) [place] Wt%: 59% for 31.0 wks [...] UA Negative Negative - 4(70) +++ mg/dL [facility] Blood, UA Negative Negative - 50 Serafin/mcL [facility] Clarity, UA Clear [facility] Color, UA Yellow [facility] Glucose, UA Negative Negative - 2000(110) ++++ mg/dL [facility] Interpretation and review of laboratory results Normal [facility] Ketones, UA Negative Negative - 160(16) ++++ mg/dL [facility] Leukocytes, UA Negative Negative - 500+++ Princess/mcL [facility] Nitrite, UA Negative Negative - Positive [facility] pH, UA 7 5 - 9 [facility] Protein, UA Negative Negative - 2000(20) ++++ mg/dL [facility] Spec Grav, UA 1.015 1 - 1.03 [facility] Urobilinogen, UA 0.2 0.2 - 12 mg/dL [facility] RECURRENT VAGINITIS (HTRX)on 11-01-2024 ATOPOBIUM VAGINAE 0 [facility] ATOPOBIUM VAGINAE Not detected [facility] BVAB 2,3 (BACTERIAL VAGINOSIS ASSOCIATED BACTERIA 2, 3); MOBILUNCUS SPP 0 [facility] BVAB 2,3 (BACTERIAL VAGINOSIS ASSOCIATED BACTERIA 2, 3); MOBILUNCUS SPP Not detected [facility] DOMINIC ALBICANS, PARAPSILOSIS, TROPICALIS 0 [facility] DOMINIC ALBICANS, PARAPSILOSIS, TROPICALIS Not detected [facility] DOMINIC GLABRATA 0 [facility] DOMINIC GLABRATA Not detected [facility] DOMINIC KRUSEI 0 [facility] DOMINIC KRUSEI Not detected [facility] CHLAMYDIA TRACHOMATIS 0 [facility] CHLAMYDIA TRACHOMATIS Not detected [facility] GARDNERELLA VAGINALIS 0 [facility] GARDNERELLA VAGINALIS Not detected N [facility] MEGASPHAERA (TYPES 1, 2) 0 [facility] MEGASPHAERA (TYPES 1, 2) Not detected [facility] MYCOPLASMA GENITALIUM 0 [facility] MYCOPLASMA GENITALIUM Not detected N [facility] NEISSERIA GONORRHOEAE 0 [facility] NEISSERIA GONORRHOEAE Not detected N [facility] TRICHOMONAS VAGINALIS 0 [facility] TRICHOMONAS VAGINALIS Not detected N [facility] Urinalysis macro (dipstick) panel (U)on 10-31-2024 Bilirubin, UA Negative Negative - 4(70) +++ mg/dL [facility] Blood, UA Negative Negative - 50 Serafin/mcL [facility] Clarity, UA Clear [facility] Color, UA Yellow [facility] Glucose, UA Negative Negative - 2000(110) ++++ mg/dL [facility] Interpretation and review of laboratory results Normal [facility] Ketones, UA Negative Negative - 160(16) ++++ mg/dL [facility] Leukocytes, UA Negative Negative - 500+++ Princess/mcL [facility] Nitrite, UA Negative Negative - Positive [facility] pH, UA 7.5 5 - 9 [facility] Protein, UA Negative Negative - 2000(20) ++++ mg/dL [facility] Spec Grav, UA 1.015 1 - 1.03 [facility] Urobilinogen, UA 1.0 0.2 - 12 mg/dL [facility] ALL CBC WITH AUTO DIFFon BASOPHILS ABSOLUTE AUTO 0 [facility] Basophils/100 WBC (Bld) 0.2 % 0.2 - 2.0 % [facility] Eosinophils/100 WBC (Bld) 1.2 % 0.9 - 7.0 % [facility] Erythrocyte distribution width (RBC) [Ratio] 12.3 % 11.0 - 15.0 % [facility] Hematocrit (Bld) [Volume fraction] 37.6 % 36.0 - 48.0 % [facility] Hemoglobin (Bld) [Mass/Vol] 13 g/dL 12.0 - 16.0 g/dL [facility] IMMATURE GRANULOCYTES ABS AUTO 0.05 High [facility] Immature granulocytes/100 WBC (Bld) 0.5 % 0.0 - 0.5 % [facility] Interpretation and review of laboratory results Abnormal [facility] LYMPHOCYTES ABSOLUTE AUTO 2 [facility] Lymphocytes/100 WBC (Bld) 18.9 % Low 20.5 - 60.0 % [facility] MCH (RBC) [Entitic mass] 31.4 pg 26.7 - 34.0 pg [facility] MCHC (RBC) [Mass/Vol] 34.6 g/dL 29.9 - 35.2 g/dL [facility] MCV (RBC) [Entitic vol] 90.8 fL 81.0 - 99.0 fL [facility] MONOCYTES ABSOLUTE AUTO 0.5 [facility] Monocytes/100 WBC (Bld) 4.7 % 1.7 - 12.0 % [facility] NEUTROPHILS ABSOLUTE AUTO 7.7 High [facility] Neutrophils/100 WBC (Bld) 74.5 % 43.0 - 75.0 % [facility] Platelet mean volume (Bld) [Entitic vol] 9.4 fL Low 9.5 - 13.5 fL [facility] TBH EO # 0.1 [facility] TBH PLT 287 [facility] TB RBC 4.14 Low [facility] TB WBC 10.3 [facility] US OB LIMITED 1+ FETUSESon 0 10-03-2024 US OB LIMITED 1+ FETUSES TITLE OF [...] UA Negative Negative - 4(70) +++ mg/dL [facility] Blood, UA Negative Negative - 50 Serafin/mcL [facility] Clarity, UA Clear [facility] Color, UA Yellow [facility] Glucose, UA Negative Negative - 1999(110) ++++ mg/dL [facility] Interpretation and review of laboratory results [...] 0.2 0.2 - 12 mg/dL [facility] Urine Cultureon 10-03-2024 Bacteria identified Cx Nom (U) <9,000 colonies/ml mixed bacterial skin contaminants 2 Days PERFORMED BY: [place] [address] PATHOLOGIST SQL SSIS DEVELOPER DESIREE WARD M.D. Normal [facility] Comment on above: Performed By: #### C UU #### [address] Urinalysis macro (dipstick) panel (U)on 08-31-2024 Bilirubin, UA Negative Negative - 4(70) +++ mg/dL [facility] Blood, UA Negative Negative - 50 Serafin/mcL [facility] Healthcare Clarity, UA Clear [facility] Color, UA Yellow [facility] Glucose, UA Negative Negative - 1999(110) ++++ mg/dL [facility] Interpretation and review of laboratory results Normal [facility] Ketones, UA Negative Negative - 160(16) ++++ mg/dL [facility] Leukocytes, UA Negative Negative - 500+++ Princess/mcL [facility] Nitrite, UA Negative Negative - Positive [facility] pH, UA 7 5 - 9 [facility] Protein, UA Negative Negative - 1999(20) ++++ mg/dL [facility] Spec Grav, UA 1.025 1 - 1.03 [facility] Urobilinogen, UA 0.2 0.2 - 12 mg/dL [facility] HCG ( test) Ql (U)o n 07-29-2024 Interpretation and review of laboratory results Abnormal [facility] Preg Test, Ur Positive Negative [facility] Urinalysis macro (dipstick) panel (U)on 07-29-2024 Bilirubin, UA Negative Negative - 4(70) +++ mg/dL [facility] Blood, UA Negative Negative - 50 Serafin/mcL [facility] Clarity, UA Clear [facility] Color, UA Yellow [facility] Glucose, UA Negative Negative - 1999(110) ++++ mg/dL [facility] Interpretation and review of laboratory results Abnormal [facility] Ketones, UA Negative Negative - 160(16) ++++ mg/dL [facility] Leukocytes, UA Positive Negative - 500+++ Princess/mcL [facility] Comment on above: small Nitrite, UA Negative Negative - Positive [facility] pH, UA 8.5 5 - 9 [facility] Protein, UA Trace Negative - 1999(20) ++++ mg/dL [facility] Spec Grav, UA 1.02 1 - 1.03 [facility] Urobilinogen, UA 0.2 0.2 - 12 mg/dL [facility] TBH PREG QUANT HCGon 07-14- 024 HCG QUANTITATIVE 159629 mIU/mL [facility] Comment on above: 5-50 0.2-1 WEEK 50-500 1-2 WEEKS 100-5,000 2-3 WEEKS 500-10,000 3-4 WEEKS 1,000-50,000 4-5 WEEKS 10,000-100,000 5-6 WEEKS 15,000-200,000 6-8 WEEKS 10,000-100,000 2-3 MONTHS [facility] Moises 11-16-2023 L Specimen: [id number] Received: 11/16/23 Status: HUMA Abarca Num: [id number] Spec Type: Surgical Subm Dr: Luan Betancur Tissues: A Placenta - 3rd Trimester (Greater than 28 weeks) (PLACENTA) Procedures: HE/4, Gross/Micro L5 Age/ Patient Sex Location Account Attending Physician Susana Newman 28/F LABELL [id number] Luan Betancur SPEC NUM: [id number] RECD: 11/16/23 STATUS: HUMA ABARCA NUM: [id number] MARTHA: 11/16/23 DR: Luan Betancur ENTERED: 11/16/[address] [facility] DR: Shawn,Lab SPEC TYPE: Surgical DEPT: [...] red-brown parenchyma 2.7 cm in average thickness. Take Off Man sections are submitted in 4 cassettes as follows: A1 - membranes, umbilical cord, and decidua basalis A2-A3 - Central placenta, full-thickness, with fibrin deposition -------- Specimen: [id number] Received: 11/16/23 Status: HUMA Abarca Num: [id number] Spec Type: Surgical Subm Dr: Luan Betancur Tissues: A Placenta - 3rd Trimester (Greater than 28 weeks) (PLACENTA) Procedures: HE/4, Gross/Micro L5 -------- Patient: Susana Newman [id number] (Continued) -------- Specimen: [id number] Received: 11/16/23 (Continued) Gross Description (Continued) Signed (signature on file) Desiree Ward MD 11/22/23 2135 -------- Specimen: [id number] Received: 11/16/23 Status: HUMA Abarca Num: [id number] Spec Type: Surgical Subm Dr: Luan Betancur Tissues: A Placenta - 3rd Trimester (Greater than 28 weeks) (PLACENTA) Procedures: NITHYA/4, Gross/Micro L5 -------- Patient: TrentSusana [id number] (Continued) -------- Specimen: [id number] Received: 11/16/23 (Continued) Gross Description (Continued) A4 - Peripheral placenta CPT Codes 37309 -------- -------- Specimen: [id number] Received: 11/16/23 Status: HUMA Abarca Num: [id number] Spec Type: Surgical Subm Dr: Luan Betancur Tissues: A Placenta - 3rd Trimester (Greater than 28 weeks) (PLACENTA) Procedures: HE/4, Gross/Micro L5 -------- Patient: Susana eNwman [id number] (Continued) -------- Signed (signature on file) Desiree Ward MD 11/22/235 Normal [facility] CBC W MANUAL DIFFon 12-06-19 ATYPICAL LYMPH # Normal [facility] Comment on above: Performed By: #### C BAYRON #### [facility] [address] [place] [address] Dr. Jennifer Almanza ATYPICAL LYMPH % Normal [facility] Comment on above: Performed By: #### Sumeet VERMA #### [facility] [address] [place] [address] Dr. Jennifer Almanza BAND # 0.0 103/ul Normal 0.0-0.3 [facility] Comment on above: Performed By: #### Sumeet VERMA #### [facility] [address] [place] [address] Dr. Jennifer Almanza BAND % 0 % Normal 0-5 [facility] Comment on above: Performed By: #### Sumeet VERMA #### [facility] [address] [place] [address] Dr. Jennifer Almanza BASOM # 0.00 103/ul Normal 0.00-0.10 [facility] Comment on above: Performed By: #### C BAYRON #### [facility] [address] [place] [address] Dr. Jennifer Almazna BASOM % 0.0 % Critically low 0.2-2.0 [facility] Comment on above: Performed By: #### C BAYRON #### [facility] [address] [place] [address] Dr. Jennifer Almanza BLAST # Normal [facility] Comment on above: Performed By: #### C BAYRON #### [facility] [address] [place] [address] Dr. Jennifer Almanza BLAST % Normal [facility] Comment on above: Performed By: #### C BAYRON #### [facility] [address] [place] [address] Dr. Jennifer Almanza CORRECTED WBC Normal 4.0-11.0 [facility] Comment on above: Performed By: #### C BAYRON #### [facility] [address] [place] [address] Dr. Jennifer Almanza EOS # 0.00 103/ul Normal 0.00-0.70 [facility] Comment on above: Performed By: #### C BAYRON #### [facility] [address] [place] [address] Dr. Jennifer Almanza EOS% 0.0 % Critically low 0.9-7.0 [facility] Comment on above: Performed By: #### C BAYRON #### [facility] [address] [place] [address] Dr. Jennifer Almanza HCT 32.4 % Critically low 36.0-48.0 [facility] Comment on above: Performed By: #### C BAYRON #### [facility] [address] [place] [address] Dr. Jennifer Almanza HGB 11.7 g/dl Critically low 12.0-16.0 [facility] Comment on above: Performed By: #### C BAYRON #### [facility] [address] [place] [address] Dr. Jennifer Almanza LYMPHM # 1.62 103/ul Normal 1.20-3.80 [facility] Comment on above: Performed By: #### C BAYRON #### [facility] [address] [place] [address] Dr. Jennifer Almanza LYMPHM% 8.0 % Critically low 20.5-60.0 [facility] Comment on above: Performed By: #### C BAYRON #### [facility] [address] [place] [address] Dr. Jennifer Almanza MCH 30.8 pg Normal 26.7-34.0 [facility] Comment on above: Performed By: #### C BCANGEL #### [facility] [address] [place] [address] Dr. Jennifer Almanza MCHC 36.1 g/dl Critically high 29.9-35.2 [facility] Comment on above: Performed By: #### C BCMAN #### [facility] [address] [place] [address] Dr. Jennifer Almanza MCV 85.3 fL Normal 81.0-99.0 [facility] Comment on above: Performed By: #### C BCMAN #### [facility] [address] [place] [address] Dr. Jennifer Almanza METAMYELOCYTE # Normal [facility] Comment on above: Performed By: #### C BAYRON #### [facility] [address] [place] [address] Dr. Jennifer Almanza METAMYELOCYTE % Normal [facility] Comment on above: Performed By: #### C BCANGEL #### [facility] [address] [place] [address] Dr. Jennifer Almanza MONOM# 0.81 103/ul Critically high 0.30-0.80 [facility] Comment on above: Performed By: #### C BCMAN #### [facility] [address] [place] [address] Dr. Jennifer Almanza MONOM% 4.0 % Normal 1.7-12.0 [facility] Comment on above: Performed By: #### C BCMAN #### [facility] [address] [place] [address] Dr. Jennifer Almanza MPV 11.8 fL Normal 9.5-13.5 [facility] Comment on above: Performed By: #### C BCMAN #### [facility] [address] [place] [address] Dr. Jennifer Almanza MYELOCYTE # Normal [facility] Comment on above: Performed By: #### C BCANGEL #### [facility] [address] [place] [address] Dr. Jennifer Almanza MYELOCYTE % Normal [facility] Comment on above: Performed By: #### C BAYRON #### [facility] [address] [address] Dr. Jennifer Almanza NRBC Normal [facility] Comment on above: Performed By: #### C BAYRON #### [facility] [address] [address] [address] Jennifer Almanza PLT 142 103/ul Critically low 150-450 [facility] Comment on above: Performed By: #### C BAYRON #### [facility] [address] [address] [address] Jennifer Almanza RBC 3.80 106/ul Critically low 4.20-5.40 [facility] Comment on above: Performed By: #### C BAYRON #### [facility] [address] [address] [address] Jennifer Almanza RDW 12.7 % Normal 11.0-15.0 [facility] Comment on above: Performed By: #### C BAYRON #### [facility] [address] [address] [address] Jennifer Almanza SEG # 17.78 103/ul Critically high 1.40-6.50 [facility] Comment on above: Performed By: #### C BAYRON #### [facility] [address] [address] [address] Jennifer Almanza SEG % 88.0 % Critically high 43.0-75.0 [facility] Comment on above: Performed By: #### C BAYRON #### [facility] [address] [address] [address] Jennifer Almanza WBC 20.2 103/ul Critically high 4.0-11.0 [facility] Comment on above: Performed By: #### C BAYRON #### [facility] [address] [address] [address] Jennifer Almanza CBC AUTO DIFFon 12-04-2022 BASO # 0.0 103/ul Normal 0.0-0.1 [facility] Comment on above: Performed By: #### C BC #### [facility] [address] [address] [address] Jennifer Almanza Basophils/100 WBC (Bld) 0.2 % Normal 0.2-2.0 [facility] Comment on above: Performed By: #### C BC #### [facility] [address] [place] [address] Dr. Jennifer Almanza EO # 0.0 103/ul Normal 0.0-0.7 [facility] Comment on above: Performed By: #### C BC #### [facility] [address] [place] [address] Dr. Jennifer Almanza Eosinophils/100 WBC (Bld) 0.0 % Critically low 0.9-7.0 [facility] Comment on above: Performed By: #### C BC #### [facility] [address] [place] [address] Dr. Jennifer Almanza Erythrocyte distribution width (RBC) [Ratio] 12.6 % Normal 11.0-15.0 [facility] Comment on above: Performed By: #### C BC #### [facility] [address] [place] [address] Dr. Jennifer Almanza Hematocrit (Bld) [Volume fraction] 40.6 % Normal 36.0-48.0 [facility] Comment on above: Performed By: #### C BC #### [facility] [address] [place] [address] Dr. Jennifer Almanza Hemoglobin (Bld) [Mass/Vol] 14.6 g/dL Normal 12.0-16.0 [facility] Comment on above: Performed By: #### C BC #### [facility] [address] [place] [address] Dr. Jennifer Almanza IG # 0.07 10e3/ul Critically high 0.00-0.03 [facility] Comment on above: Performed By: #### C BC #### [facility] [address] [place] [address] Dr. Jennifer Almanza IG % 0.4 % Normal 0.0-0.5 [facility] Comment on above: Performed By: #### C BC #### [facility] [address] [address] [address] Jennifer Almanza LYMPH # 0.9 103/ul Critically low 1.2-3.8 [facility] Comment on above: Performed By: #### C BC #### [facility] [address] [address] [address] Jennifer Almanza Lymphocytes/100 WBC (Bld) 5.0 % Critically low 20.5-60.0 [facility] Comment on above: Performed By: #### C BC #### [facility] [address] [address] [address] Jennifer Almanza MANUAL DIFF REQ NO Normal [facility] Comment on above: Performed By: #### C BC #### [facility] [address] [place] [address] Dr. Jnenifer Almanza MCH (RBC) [Entitic mass] 30.6 pg Normal 26.7-34.0 [facility] Comment on above: Performed By: #### C BC #### [facility] [address] [place] [address] Dr. Jennifer Almanza MCHC (RBC) [Mass/Vol] 36.0 g/dL Critically high 29.9-35.2 [facility] Comment on above: Performed By: #### C BC #### [facility] [address] [place] [address] Dr. Jennifer Almanza MCV (RBC) [Entitic vol] 85.1 fL Normal 81.0-99.0 [facility] Comment on above: Performed By: #### C BC #### [facility] [address] [place] [address] Dr. Jennifer Almanza MONO # 0.9 103/ul Critically high 0.3-0.8 [facility] Comment on above: Performed By: #### C BC #### [facility] [address] [address] [address] Jennifer Almanza Monocytes/100 WBC (Bld) 5.3 % Normal 1.7-12.0 [facility] Comment on above: Performed By: #### C BC #### [facility] [address] [place] [address] Dr. Jennifer Almanza NEUT # 15.8 103/ul Critically high 1.4-6.5 [facility] Comment on above: Performed By: #### C BC #### [facility] [address] [place] [address] Dr. Jennifer Almanza Neutrophils/100 WBC (Bld) 89.1 % Critically high 43.0-75.0 [facility] Comment on above: Performed By: #### C BC #### [facility] [address] [place] [address] Dr. Jennifer Almanza Platelet mean volume (Bld) [Entitic vol] 12.0 fL Normal 9.5-13.5 [facility] Comment on above: Performed By: #### C BC #### [facility] [address] [place] [address] Dr. Jennifer Almanza PLT 177 103/ul Normal 150-450 [facility] Comment on above: Performed By: #### C BC #### [facility] [address] [place] [address] Dr. Jennifer Almanza RBC 4.77 106/ul Normal 4.20-5.40 [facility] Comment on above: Performed By: #### C BC #### [facility] [address] [place] [address] Dr. Jennifer Almanza WBC 17.7 103/ul Critically high 4.0-11.0 [facility] Comment on above: Performed By: #### C BC #### [facility] [address] [place] [address] Dr. Jennifer Almanza TYPE AND SCREENon 12-04-2022 TYPE AND SCREEN Negative Normal [facility] Comment on above: Performed By: #### T NS #### [facility] [address] [place] [address] Dr. Jennifer Almanza GROUP B STREP CULTUREon 10-30 S. agalactiae Ag Ql (Unsp spec) Culture Observations: NEGATIVE FOR GROUP B STREPTOCOCCUS. Normal [facility] Comment on above: Performed By: #### G BSCX #### [facility] [address] [place] [address] Dr. Jennifer Almanza CBC AUTO DIFFon 09-12-2022 BASO # 0.0 103/ul Normal 0.0-0.1 [facility] Comment on above: Performed By: #### C BC #### [facility] [address] [place] [address] Dr. Jennifer Almanza Basophils/100 WBC (Bld) 0.2 % Normal 0.2-2.0 [facility] Comment on above: Performed By: #### C BC #### [facility] [address] [place] [address] Dr. Jennifer Almanza EO # 0.1 103/ul Normal 0.0-0.7 [facility] Comment on above: Performed By: #### C BC #### [facility] [address] [place] [address] Dr. Jennifer Almanza Eosinophils/100 WBC (Bld) 1.2 % Normal 0.9-7.0 [facility] Comment on above: Performed By: #### C BC #### [facility] [address] [place] [address] Dr. Jennifer Almanza Erythrocyte distribution width (RBC) [Ratio] 11.8 % Normal 11.0-15.0 [facility] Comment on above: Performed By: #### C BC #### [facility] [address] [place] [address] Dr. Jennifer Almanza Hematocrit (Bld) [Volume fraction] 37.8 % Normal 36.0-48.0 [facility] Comment on above: Performed By: #### C BC #### [facility] [address] [place] [address] Dr. Jennifer Almanza Hemoglobin (Bld) [Mass/Vol] 12.9 g/dL Normal 12.0-16.0 [facility] Comment on above: Performed By: #### C BC #### [facility] [address] [place] [address] Dr. Jennifer Almanza IG # 0.03 10e3/ul Normal 0.00-0.03 [facility] Comment on above: Performed By: #### C BC #### [facility] [address] [place] [address] Dr. Jennifer Almanza IG % 0.4 % Normal 0.0-0.5 [facility] Comment on above: Performed By: #### C BC #### [facility] [address] [place] [address] Dr. Jennifer Almanza LYMPH # 1.1 103/ul Critically low 1.2-3.8 [facility] Comment on above: Performed By: #### C BC #### [facility] [address] [place] [address] Dr. Jennifer Almanza Lymphocytes/100 WBC (Bld) 13.6 % Critically low 20.5-60.0 [facility] Comment on above: Performed By: #### C BC #### [facility] [address] [place] [address] Dr. Jennifer Almanza MANUAL DIFF REQ NO Normal [facility] Comment on above: Performed By: #### C BC #### [facility] [address] [place] [address] Dr. Jennifer Almanza MCH (RBC) [Entitic mass] 30.5 pg Normal 26.7-34.0 [facility] Comment on above: Performed By: #### C BC #### [facility] [address] [place] [address] Dr. Jennifer Almanza MCHC (RBC) [Mass/Vol] 34.1 g/dL Normal 29.9-35.2 [facility] Comment on above: Performed By: #### C BC #### [facility] [address] [place] [address] Dr. Jennifer Almanza MCV (RBC) [Entitic vol] 89.4 fL Normal 81.0-99.0 [facility] Comment on above: Performed By: #### C BC #### [facility] [address] [place] [address] Dr. Jennifer Almanza MONO # 0.4 103/ul Normal 0.3-0.8 [facility] Comment on above: Performed By: #### C BC #### [facility] [address] [place] [address] Dr. Jennifer Almanza Monocytes/100 WBC (Bld) 5.0 % Normal 1.7-12.0 [facility] Comment on above: Performed By: #### C BC #### [facility] [address] [place] [address] Dr. Jennifer Almanza NEUT # 6.5 103/ul Normal 1.4-6.5 [facility] Comment on above: Performed By: #### C BC #### [facility] [address] [place] [address] Dr. Jennifer Almanza Neutrophils/100 WBC (Bld) 79.6 % Critically high 43.0-75.0 [facility] Comment on above: Performed By: #### C BC #### [facility] [address] [place] [address] Dr. Jennifer Almanza Platelet mean volume (Bld) [Entitic vol] 9.3 fL Critically low 9.5-13.5 [facility] Comment on above: Performed By: #### C BC #### [facility] [address] [place] [address] Dr. Jennifer Almanza PLT 234 103/ul Normal 150-450 [facility] Comment on above: Performed By: #### C BC #### [facility] [address] [place] [address] Dr. Jennifer Almanza RBC 4.23 106/ul Normal 4.20-5.40 [facility] Comment on above: Performed By: #### C BC #### [facility] [address] [place] [address] Dr. Jennifer Almanza WBC 8.2 103/ul Normal 4.0-11.0 [facility] Comment on above: Performed By: #### C BC #### [facility] [address] [place] [address] Dr. Jennifer Almanza GLUCOSE - 1HRon 09-12-2022 Glucose [Mass/Vol] 92 mg/dL Normal 74-106 [facility] Comment on above: Performed By: #### H CVPCRR #### [facility] [address] [place] [address] Dr. Jennifer Almanza PAP ACOG PANEL 2: 21 to 29on 09-02-2022 . . Normal [facility] Comment on above: Performed By: #### [id number] #### [facility] [address] [place] [address] Dr. Jennifer Almanza Age Gdln ACOG Testing 21-29 [facility] Comment on above: Performed By: #### 4 [id number] #### [facility] [address] [place] [address] Dr. Jennifer Almanza DIAGNOSIS: Comment [facility] Comment on above: Result Comment: NEGA TIVE FOR INTRAEPITHELIAL LESION OR MALIGNANCY. Performed By: #### [id number] #### [facility] [address] [place] [address] Dr. Jennifer Almanza Methodology: Comment [facility] Comment on above: Result Comment: This liquid based ThinPrep(R) pap test was screened with the use of an image guided system. Performed By: #### 4 [id number] #### [facility] [address] [place] [address] Dr. Jennifer Almanza Note: Comment [facility] Comment on above: Result Comment: The Pap smear is a screening test designed to aid in the detection of premalignant and malignant conditions of the uterine cervix. It is not a diagnostic procedure and should not be used as the sole means of detecting cervical cancer. Both false-positive and false-negative reports do occur. . Performed By: #### [id number] #### [facility] [address] [place] [address] Dr. Jennifer Almanza Performed by: Comment Normal [facility] Comment on above: Result Comment: Tan Mitchell, Computer Education Professor (ASCP) Performed By: #### [id number] #### [facility] [address] [place] [address] Dr. Jennifer Almanza Reflex Criteria: Comment [facility] Comment on above: Result Comment: The HPV DNA reflex criteria were not met with this specimen result therefore, no HPV testing was performed. . Performed By: #### [id number] #### [facility] [address] [place] [address] Dr. Jennifer Almanza Specimen adequacy: Comment Normal [facility] Comment on above: Result Comment: Sati sfactory for evaluation. No endocervical component is identified. Performed By: #### [id number] #### [facility] [address] [place] [address] Dr. Jennifer Almanza CHLAMYDIA/GONOCOCCUS PEPE (SW AB/URINE/PAPon 08-29-2022 Chlamydia trachomatis, PEPE Negative Normal Negative [facility] Comment on above: Performed By: #### H CVPCRR #### [facility] [address] [place] [address] Dr. Jennifer Almanza Neisseria gonorrhoeae, PEPE Negative Normal Negative [facility] Comment on above: Performed By: #### H CVPCRR #### [facility] [address] [place] [address] Dr. Jennifer Almanza VAGINITIS/VAGINOSIS DNA PROB Gamaliel 08-28-2022 Dominic species Positive Abnormal Negative [facility] Comment on above: Performed By: #### H CVPCRR #### [facility] [address] [place] [address] Dr. Jennifer Almanza Gardnerella vaginalis Negative Normal Negative [facility] Comment on above: Performed By: #### H CVPCRR #### [facility] [address] [place] [address] Dr. Jennifer Almanza Trichomonas vaginalis Negative Normal Negative [facility] Comment on above: Performed By: #### H CVPCRR #### [facility] [address] [place] [address] Dr. Jennifer Almanza US PREG ANATOMY SINGLEon [...] GM ROMERO Date: 2022-07-29 06:06 Normal [facility] HEP B SURFACE ANTIGEN SCREEN on 05-09-2022 HBsAg Screen Negative Normal Negative [facility] Comment on above: Performed By: #### H BSANS #### [facility] [address] [address] [address] Jennfier Almanza HEPATITIS C VIRUS AB W/ REFL EX QUANTon 05-09-2022 HCV AB <0.1 Normal 0.0-0.9 [facility] Comment on above: Performed By: #### H CVPCRR #### [facility] [address] [address] [address] Jennifer Almanza Interpretation: Comment Normal [facility] Comment on above: Result Comment: Nega tive Not infected with HCV, unless recent infection is suspected or other evidence exists to indicate HCV infection. Performed By: #### H CVPCRR #### [facility] [address] [place] [address] Dr. Jennifer Almanza HIV 1 AND 2 WITH REFLEXon HIV Screen 4th Generation wRfx Non-Reactive Normal Non Reactive [facility] Comment on above: Result Comment: HIV Negative HIV-1/HIV-2 antibodies and HIV-1 p24 antigen were NOT detected. There is no laboratory evidence of HIV infection. Performed By: #### H CVPCRR #### [facility] [address] [place] [address] Dr. Jennifer Almanza RPR QUANTon 05-09-2022 Rapid Plasma Reagin, Quant Non-Reactive Normal NonRea<1:1 [facility] Comment on above: Result Comment: Plea se Note: This test does not meet current guidelines for screening and diagnosis of syphilis. This test is intended for following treatment response in patients being treated for syphilis infection. To screen for syphilis infection, a reflex cascade that includes both RPR and a treponema-specific assay should be utilized, such as Treponema pallidum (Syphilis) Screening [place] (236088) or Rapid Plasma Reagin (RPR) Test With Reflex to Quantitative RPR and Confirmatory Treponema pallidum Antibodies (366040). Performed By: #### R PRQ #### [facility] [address] [place] [address] Dr. Jennifer Almanza RUBELLA AB IGGon 05-09-2022 Rubella Antibodies, IgG 4.48 index Normal Immune >0.99 [facility] Comment on above: Result Comment: Non- immune <0.90 Equivocal 0.90 - 0.99 Immune >0.99 Performed By: #### H CVPCRR #### [facility] [address] [place] [address] Dr. Jennifer Almanza CBC AUTO DIFFon 05-08-2022 BASO # 0.0 103/ul Normal 0.0-0.1 [facility] Comment on above: Performed By: #### C BC #### [facility] [address] [place] [address] Dr. Jennifer Almanza Basophils/100 WBC (Bld) 0.5 % Normal 0.2-2.0 [facility] Comment on above: Performed By: #### C BC #### [facility] [address] [place] [address] Dr. Jennifer Almanza EO # 0.1 103/ul Normal 0.0-0.7 [facility] Comment on above: Performed By: #### C BC #### [facility] [address] [place] [address] Dr. Jennifer Almanza Eosinophils/100 WBC (Bld) 1.7 % Normal 0.9-7.0 [facility] Comment on above: Performed By: #### C BC #### [facility] [address] [place] [address] Dr. Jennifer Almanza Erythrocyte distribution width (RBC) [Ratio] 11.9 % Normal 11.0-15.0 [facility] Comment on above: Performed By: #### C BC #### [facility] [address] [place] [address] Dr. Jennifer Almanza Hematocrit (Bld) [Volume fraction] 38.4 % Normal 36.0-48.0 [facility] Comment on above: Performed By: #### C BC #### [facility] [address] [place] [address] Dr. Jennifer Almanza Hemoglobin (Bld) [Mass/Vol] 13.3 g/dL Normal 12.0-16.0 [facility] Comment on above: Performed By: #### C BC #### [facility] [address] [place] [address] Dr. Jennifer Almanza IG # 0.01 10e3/ul Normal 0.00-0.03 [facility] Comment on above: Performed By: #### C BC #### [facility] [address] [place] [address] Dr. Jennifer Almanza IG % 0.2 % Normal 0.0-0.5 [facility] Comment on above: Performed By: #### C BC #### [facility] [address] [place] [address] Dr. Jennifer Almanza LYMPH # 1.6 103/ul Normal 1.2-3.8 [facility] Comment on above: Performed By: #### C BC #### [facility] [address] [place] [address] Dr. Jennifer Almanza Lymphocytes/100 WBC (Bld) 25.8 % Normal 20.5-60.0 [facility] Comment on above: Performed By: #### C BC #### [facility] [address] [place] [address] Dr. Jennifer Almanza MANUAL DIFF REQ NO Normal [facility] Comment on above: Performed By: #### C BC #### [facility] [address] [place] [address] Dr. Jennifer Almanza MCH (RBC) [Entitic mass] 30.8 pg Normal 26.7-34.0 [facility] Comment on above: Performed By: #### C BC #### [facility] [address] [place] [address] Dr. Jennifer Almanza MCHC (RBC) [Mass/Vol] 34.6 g/dL Normal 29.9-35.2 [facility] Comment on above: Performed By: #### C BC #### [facility] [address] [place] [address] Dr. Jennifer Almanza MCV (RBC) [Entitic vol] 88.9 fL Normal 81.0-99.0 [facility] Comment on above: Performed By: #### C BC #### [facility] [address] [place] [address] Dr. Jennifer Almanza MONO # 0.5 103/ul Normal 0.3-0.8 [facility] Comment on above: Performed By: #### C BC #### [facility] [address] [place] [address] Dr. Jennifer Almanza Monocytes/100 WBC (Bld) 8.1 % Normal 1.7-12.0 [facility] Comment on above: Performed By: #### C BC #### [facility] [address] [place] [address] Dr. Jennifer Almanza NEUT # 4.0 103/ul Normal 1.4-6.5 [facility] Comment on above: Performed By: #### C BC #### [facility] [address] [place] [address] Dr. Jennifer Almanza Neutrophils/100 WBC (Bld) 63.7 % Normal 43.0-75.0 [facility] Comment on above: Performed By: #### C BC #### [facility] [address] [place] [address] Dr. Jennifer Almanza Platelet mean volume (Bld) [Entitic vol] 9.4 fL Critically low 9.5-13.5 [facility] Comment on above: Performed By: #### C BC #### [facility] [address] [place] [address] Dr. Jennifer Almanza PLT 217 103/ul Normal 150-450 [facility] Comment on above: Performed By: #### C BC #### [facility] [address] [place] [address] Dr. Jennifer Almanza RBC 4.32 106/ul Normal 4.20-5.40 [facility] Comment on above: Performed By: #### C BC #### [facility] [address] [place] [address] Dr. Jennifer Almanza WBC 6.3 103/ul Normal 4.0-11.0 [facility] Comment on above: Performed By: #### C BC #### [facility] [address] [place] [address] Dr. Jennifer Almanza CULTURE URINEon 05-08-2022 CULTURE URINE Culture Observations : LIGHT GROWTH OF MIXED GENITAL MICHAEL. NO POTENTIAL PATHOGENS SEEN. Normal [facility] Comment on above: Performed By: #### H CVPCRR #### [facility] [address] [place] [address] Dr. Jennifer Almanza GLYCOHEMOGLOBIN A1Con 2021 ADA RECOMMENDATION SEE BELOW Normal [facility] Comment on above: Result Comment: ADA RECOMMENDED LIMIT 4.0 - 6.0 ADA THERAPEUTIC TARGET < 7.0 ACTION SUGGESTED > 7.0 Performed By: #### H CVPCRR #### [facility] [address] [place] [address] Dr. Jennifer Almanza Glucose [Mass/Vol] 80 mg/dL Normal [facility] Comment on above: Performed By: #### H CVPCRR #### [facility] Laboratory [address] [place] [address] Dr. Jennifer Almanza HbA1c (Bld) [Mass fraction] 4.4 % Critically low 4.5-6.2 [facility] Comment on above: Performed By: #### H CVPCRR #### [facility] [address] [place], [place] [address] Dr. Jennifer Almanza TYPE AND SCREENon 05-08-2022 TYPE AND SCREEN Negative Normal [facility] Comment on above: Performed By: #### H CVPCRR #### [facility] [address] [place], [place] [address] Dr. Jennifer Almanza US PREG TVon 05-02-2022 [...] GM ROMERO Date: 2022-05-02 16:03 Normal [facility] Body fluid albumin measureme nt (mass/volume)Ordered By: Alisia Burciaga on 03-10-2022 Albumin (Body fld) [Mass/Vol] 4.5 g/dL 3.2-5.5 [facility] Creatinine and Glomerular fi ltration rate.predicted panel (S/P/Bld)Ordered By: Alisia Burciaga on 03-10-2022 Creatinine [Mass/Vol] 0.64 mg/dL 0.44-1.03 [facility] Estimated glomerular filtrat ion rate (GFR) non- AmericanOrdered By: Alisia Burciaga on 03-10-2022 GFR/1.73 sq M.predicted among non-blacks MDRD (S/P/Bld) [Vol rate/Area] > 60 mL/Min [facility] No Panel InformationOrdered By: Alisia Burciaga on 03-10-2022 25-Hydroxy Vitamin D Total 28.9 ng/mL 30-100 [facility] Comment on above: VITAMIN D STATUS 25( [place])VITAMIN D RANGE (ng/mL) Deficient <20 Insufficient 20 to <30 Sufficient 30 to 100 Reference: Vanessa MF,Nydia NC, Marisol HESS, et al. Evaluation,treatment, and prevention of vitamin D deficiency; an Endocrine Society clinical practice guideline. JCEM. 2010; 96(7):1911-30. Estimated GFR () > 60 mL/Min [facility] Comment on above: GFR estimated refere nce range: According to KDOQI guidelines, <60 ml/min/1.73m2 is sufficient to diagnose a patient with chronic kidney disease. Pharmacy Creatinine Clearance (Chem N/A [facility] Parathyroid Hormone Intacton 03-10-2022 Parathyroid Hormone Intact 50.9 pg/mL Normal 12-88 [facility] Comment on above: Result Comment: PERF ORMED BY: [facility] [address] [place] [address] PATHOLOGIST SQL SSIS DEVELOPER TARAS MA M.D. Performed By: #### R ENAL, PTH, [id number] #### [facility] [place] [facility] [address] [place] [place] [id number] [place] Phosphate [Mass/volume] in S celsa or PlasmaOrdered By: Alisia Burciaga on 03-10-2022 Phosphate [Mass/Vol] 3.3 mg/dL 2.5-4.6 [facility] Renal Function Panelon 03-10 Albumin [Mass/Vol] 4.5 g/dL Normal 3.2-5.5 [facility] Comment on above: Performed By: #### R ENAL, PTH, [id number] #### [facility] [place] [facility] [address] [place] [id number] [place] Calcium [Mass/Vol] 9.9 mg/dL Normal 8.2-10.2 [facility] Comment on above: Performed By: #### R ENAL, PTH, [id number] #### [facility] [place] [facility] [address] [place] [address] [place] Chloride [Moles/Vol] 102 mmol/L Normal 95-114 [facility] Comment on above: Performed By: #### R ENAL, PTH, [id number] #### [facility] [place] [facility] [address] CO2 [Moles/Vol] 25.2 mmol/L Normal 22.0-30.0 [facility] Comment on above: Performed By: #### R ENAL, PTH, [id number] #### [facility] [address] Creatinine [Mass/Vol] 0.64 mg/dL Normal 0.44-1.03 [facility] Comment on above: Performed By: #### R ENAL, PTH, [id number] #### [facility] [address] Estimated GFR ( Rachel > 60 Normal [facility] Comment on above: Result Comment: GFR estimated reference range: According to KDOQI guidelines, <60 ml/min/1.73m2 is sufficient to diagnose a patient with chronic kidney disease. Performed By: #### R ENAL, PTH, [id number] #### [facility] [address] Estimated GFR (Non- Am > 60 Normal [facility] Comment on above: Performed By: #### R ENAL, PTH, [id number] #### [facility] [address] Glucose [Mass/Vol] 88 mg/dL Normal 70-100 [facility] Comment on above: Result Comment: [place] Glucose Reference Range is dependent on time and content of last meal. Glucose of more than 200 mg/dL in a nonstressed, ambulatory subject supports the diagnosis of Diabetes Mellitus. ADA recommended reference range Performed By: #### R ENAL, PTH, [id number] #### [facility] [address] Phosphate [Mass/Vol] 3.3 mg/dL Normal 2.5-4.6 [facility] Comment on above: Performed By: #### R ENAL, PTH, [id number] #### [facility] [address] Potassium [Moles/Vol] 4.6 mmol/L Normal 3.5-5.1 [facility] Comment on above: Performed By: #### R ENAL, PTH, [id number] #### [facility] [place] [facility] [address] [place] [address] [place] Sodium [Moles/Vol] 137 mmol/L Normal 136-146 [facility] Comment on above: Performed By: #### R ENAL, PTH, [id number] #### [facility] [place] [facility] [address] [place] [address] [place] Urea nitrogen [Mass/Vol] 11 mg/dL Normal 9-23 [facility] Comment on above: Performed By: #### R ENAL, PTH, [id number] #### [facility] [place] [facility] [address] Serum or plasma calcium robson urement (mass/volume)Ordered By: Alisia Burciaga on 03-10-2022 Calcium [Mass/Vol] 9.9 mg/dL 8.2-10.2 [facility] Serum or plasma chloride kathe surement (moles/volume)Ordered By: Alisia Burciaga on 03-10-2022 Chloride [Moles/Vol] 102 mmol/L 95-114 [facility] Serum or plasma glucose robson urement (mass/volume)Ordered By: Alisia Burciaga on 03-10-2022 Glucose [Mass/Vol] 88 mg/dL 70-100 [facility] Comment on above: ADA recommended refe rence range Random Glucose Reference Range is dependent on time and content of last meal. Glucose of more than 200 mg/dL in a nonstressed, ambulatory subject supports the diagnosis of Diabetes Mellitus. Serum or plasma intact parat hyroid hormone measurement (mass/volume)Ordered By: Alisia Burciaga on 03-10-2022 Parathyrin.intact [Mass/Vol] 50.9 pg/mL [facility] Serum or plasma potassium me asurement (moles/volume)Ordered By: Alisia Burciaga on 03-10-2022 Potassium [Moles/Vol] 4.6 mmol/L 3.5-5.1 [facility] Serum or plasma sodium measu rement (moles/volume)Ordered By: Alisia Burciaga on 03-10-2022 Sodium [Moles/Vol] 137 mmol/L 136-146 [facility] Serum or plasma total carbon dioxide measurement (moles/volume)Ordered By: Alisia Burciaga on 03-10-2022 CO2 [Moles/Vol] 25.2 mmol/L 22.0-30.0 [facility] Serum or plasma urea nitroge n measurement (mass/volume)Ordered By: Alisia Burciaga on 03-10-2022 Urea nitrogen [Mass/Vol] 11 mg/dL - [facility] Vitamin D 25 Hydroxy Totalon 03-10-2022 Vitamin D 25 Hydroxy Total 28.9 ng/mL Low 30-100 [facility] Comment on above: Result Comment: MIGDALIA MIN D STATUS 25([place])VITAMIN D RANGE (ng/mL) Deficient <20 Insufficient 20 to <30 Sufficient 30 to 100 Reference: Vanessa MF,Nydia NC, Marisol HESS, et al. Evaluation,treatment, and prevention of vitamin D deficiency; an Endocrine Society clinical practice guideline. JCEM. 2010; 96(7):1911-30. Performed By: #### R ENAL, PTH, [id number] #### [address] HCG, Beta Quantitativeon HCG.beta subunit Qn m[IU]/mL [facility] Nurse Midwifery-Christiano Holloway DO Work Phone: Comment [...] HCG measurement is performed using the [employer] Access Immunoassay which detects intact HCG and free beta HCG subunit. This test is not indicated for use as a tumor marker. HCG testing is performed using a different test methodology at [facility] than other [facility]. Direct result comparison should only be made within the same method. REF VALUESNON FEMALE <5MALES <5 HCG,BETA-QUANTITATIVEon 05-2 HCG,BETA-QUANTITATIVE <2 [facility] Comment on above: Result Comment: Low- level [...] HCG measurement is performed using the Lida Miranda Access Immunoassay which detects intact HCG and free beta HCG subunit. This test is not indicated for use as a tumor marker. HCG testing is performed using a different test methodology at [facility] than other [facility]. Direct result comparison should only be made within the same method. REF VALUES NON FEMALE <5 MALES <5 Performed By: #### H QU #### [address] [id number] PHQ-2 [facility] 02-14-2022 Adult depression screening assessment No [facility] [place] [id number] M DO Work Phone: Fall risk assessment a) No falls within the last year [facility] [address] M DO Work Phone: Last menstrual period start date [id number] [facility] [address] M DO Work Phone: Vital Signs Date Time Vital Sign Value Performing Clinician Facility 12-13-2024 10:54-0400 Body mass index (BMI) [Ratio] 28.79 kg/m2 Cas[place] Work Phone: [facility] 12-13-2024 10:54-0400 Body weight 71.4 kg [place] Work Phone: [facility] 12-13-2024 10:54-0400 Diastolic blood pressure 62 mm[Hg] [place] Work Phone: [facility] 12-13-2024 10:54-0400 Systolic blood pressure 108 mm[Hg] Luan Pipe DO Work Phone: [facility] 11-28-2024 10:09-0500 Body mass index (BMI) [Ratio] 28.19 kg/m2 Ana Polo PA Work Phone: [facility] 11-28-2024 10:09-0500 Body weight 69.91 kg Ana Francoey PA Work Phone: [facility] 11-28-2024 10:09-0500 Diastolic blood pressure 64 mm[Hg] Ana Polo PA Work Phone: [facility] 11-28-2024 10:09-0500 Systolic blood pressure 110 mm[Hg] Ana Polo PA Work Phone: [facility] 11-14-2024 09:54-0500 Body mass index (BMI) [Ratio] 28.35 kg/m2 Luan Pipe DO Work Phone: [facility] 11-14-2024 09:54-0500 Body weight 70.31 kg Luan Pipe DO Work Phone: [facility] 11-14-2024 09:54-0500 Diastolic blood pressure 64 mm[Hg] Luan Pipe DO Work Phone: [facility] 11-14-2024 09:54-0500 Systolic blood pressure 110 mm[Hg] Luan Pipe DO Work Phone: [facility] 10-31-2024 09:04-0500 Body mass index (BMI) [Ratio] 28.13 kg/m2 Luan Pipe DO Work Phone: [facility] 10-31-2024 09:04-0500 Body weight 69.76 kg Luan Pipe DO Work Phone: [facility] 10-31-2024 09:04-0500 Diastolic blood pressure 64 mm[Hg] Luan Pipe DO Work Phone: [facility] 10-31-2024 09:04-0500 Systolic blood pressure 112 mm[Hg] Luan Pipe DO Work Phone: [facility] 10-03-2024 11:52-0500 Body mass index (BMI) [Ratio] 26.89 kg/m2 Ana Polo PA Work Phone: [facility] 10-03-2024 11:52-0500 Body weight 66.68 kg Ana Francoey PA Work Phone: [facility] 10-03-2024 11:52-0500 Diastolic blood pressure 60 mm[Hg] Ana Polo PA Work Phone: [facility] 10-03-2024 11:52-0500 Systolic blood pressure 110 mm[Hg] Ana Polo PA Work Phone: [facility] 08-31-2024 16:30-0500 Body mass index (BMI) [Ratio] 27.33 kg/m2 Ulan Pipe DO Work Phone: [facility] 08-31-2024 16:30-0500 Body weight 67.77 kg Luan Pipe DO Work Phone: [facility] 08-31-2024 16:30-0500 Diastolic blood pressure 60 mm[Hg] Luan Pipe DO Work Phone: [facility] 08-31-2024 16:30-0500 Systolic blood pressure 118 mm[Hg] Luan Pipe DO Work Phone: [facility] 07-29-2024 09:27-0400 Body mass index (BMI) [Ratio] 26.34 kg/m2 Noms Nurse [facility] 07-29-2024 09:27-0400 Body weight 65.32 kg Nom Nurse [facility] 07-29-2024 09:27-0400 Diastolic blood pressure 68 mm[Hg] Noms Nurse [facility] 07-29-2024 09:27-0400 Systolic blood pressure 110 mm[Hg] Nom Nurse [facility] 03-23-2022 11:05-0400 Body height 157.48 cm Sarah Dominguez Other [employer] Other 03-23-2022 11:05-0400 Body mass index (BMI) [Ratio] 24.51 kg/m2 Sarah Dominguez Other [employer] Other 03-23-2022 11:05-0400 Body weight 60.78 kg Sarah Dominguez Other [employer] Other 03-23-2022 11:05-0400 Diastolic blood pressure 85 mm[Hg] Sarah Dominguez Other [employer] Other 03-23-2022 11:05-0400 Systolic blood pressure 129 mm[Hg] Sarah Dominguez Other [employer] Other 02-14-2022 14:22-0400 Body height 157.48 cm Sailaja Ren Work Phone: [facility] [id number] M DO Work Phone: 02-14-2022 14:22-0400 Body mass index (BMI) [Ratio] 24.55 kg/m2 Sailaja Ren Work Phone: [facility] [address] M DO Work Phone: 02-14-2022 14:22-0400 Body surface area Derived from formula 1.61 m2 Sailaja Ren Work Phone: [facility] [address] M DO Work Phone: 02-14-2022 14:22-0400 Body weight 60.9 kg Sailaja Ren Work Phone: [facility] [address] M DO Work Phone: 02-14-2022 14:22-0400 Diastolic blood pressure 62 mm[Hg] Sailaja Mcmillantash Work Phone: [facility] [address] M DO Work Phone: 02-14-2022 14:22-0400 Systolic blood pressure 126 mm[Hg] Sailaja Ren Work Phone: [facility] [address] M DO Work Phone: 02-14-2022 14:22-0400 0 1 Sailaja Ren Work Phone: [facility] [address] M DO Work Phone: Comment on above: [employer] Encounters Encounter Date Encounter Type Care Provider Facility Start: 12-13-2024 End: 12-13-2024 Office outpatient visit 15 minutes Luan Pipe DO Work Phone: [facility] Comment on above: 35 weeks gestation o f ; Third trimester Start: 12-13-2024 End: 12-13-2024 ambulatory LUAN PIPE Not Available Start: 11-28-2024 End: 11-28-2024 Bamboo flowsheet Ana ARMENTA Work Phone: [facility] Start: 11-28-2024 End: 11-28-2024 Bamboo flowsheet Ana ARMENTA Work Phone: [facility] Start: 11-28-2024 End: 11-28-2024 Office outpatient visit 15 minutes Ana ARMENTA Work Phone: [facility] Comment on above: Third trimester preg sharon; 33 weeks gestation of Start: 11-28-2024 End: 11-28-2024 ambulatory ANA POLO Not Available Start: 11-19-2024 End: 11-19-2024 Clinisync Result Encounter Luan Pipe DO Work Phone: [facility] Unsolicited Start: 11-19-2024 End: 11-19-2024 Clinisync Result Encounter Luan Pipe DO Work Phone: [facility] Unsolicited Start: 11-14-2024 End: 11-14-2024 Office outpatient visit 15 minutes Luan Pipe DO Work Phone: [facility] Comment on above: Third trimester preg sharon; 31 weeks gestation of ; Diabetes mellitus screening Start: 11-14-2024 End: 11-14-2024 ambulatory LUAN PIPE Not Available Start: 10-31-2024 End: 10-31-2024 Bamboo flowsheet Luan Pipe DO Work Phone: [facility] Start: 10-31-2024 End: 11-01-2024 Bamboo flowsheet Luan Pipe DO Work Phone: [facility] Start: 10-31-2024 End: 11-01-2024 External Result Encounter Luan Pipe DO Work Phone: [facility] Unsolicited Start: 10-31-2024 End: 10-31-2024 Office outpatient visit 15 minutes Luan Pipe DO Work Phone: [facility] Comment on above: size inconsist ent with dates (Primary Dx); Third trimester ; 29 weeks gestation of ; STD exposure; Vaginal discharge Start: 10-31-2024 End: 10-31-2024 ambulatory LUAN PIPE Not Available Start: 10-03-2024 End: 10-03-2024 Clinisync Result Encounter Luan Pipe DO Work Phone: [facility] Unsolicited Start: 10-03-2024 End: 10-03-2024 Clinisync Result Encounter Luan Pipe DO Work Phone: [facility] Unsolicited Start: 10-03-2024 End: 10-03-2024 ambulatory Luan Pipe [facility] Work Phone: Start: 10-03-2024 End: 10-03-2024 Departed Referred Luan Pipe DO Work Phone: [facility] [place] [facility] Start: 10-03-2024 End: 10-03-2024 Office outpatient visit 15 minutes Ana Polo PA Work Phone: [facility] Comment on above: 25 weeks gestation o f ; Second trimester Start: 10-03-2024 End: 10-03-2024 ambulatory ANA POLO Not Available Start: 10-03-2024 End: 10-03-2024 ambulatory LUAN PIPE Not Available Start: 08-31-2024 End: 08-31-2024 Office outpatient visit 15 minutes Luan Pipe DO Work Phone: [facility] Comment on above: 20 weeks gestation o f ; Second trimester ; Low-lying placenta Start: 08-31-2024 End: 08-31-2024 ambulatory LUAN PIPE Not Available Start: 08-31-2024 End: 08-31-2024 Bamboo flowsheet Luan Pipe DO Work Phone: [facility] Start: 08-31-2024 End: 08-31-2024 Bamboo flowsheet Luan Pipe DO Work Phone: [facility] Start: 07-29-2024 End: 07-29-2024 ambulatory LUAN PIPE Not Available Start: 07-29-2024 End: 07-29-2024 Office outpatient visit 5 minutes [facility] Pipe Nurse [facility] Comment on above: GA: 15w4d Start: 07-14-2024 End: 07-14-2024 Clinisync Result Encounter Luan Pipe DO Work Phone: [facility] Unsolicited Start: 07-14-2024 End: 07-14-2024 Clinisync Result Encounter Luan Pipe DO Work Phone: [facility] Unsolicited Start: 11-16-2023 End: 11-16-2023 ambulatory Luan Pipe Facility:[facility] Start: 11-16-2023 End: 11-16-2023 ambulatory Luan Pipe [facility] Work Phone: Start: 11-16-2023 End: 11-16-2023 Departed Referred Luan Pipe Work Phone: [facility] [place] [facility] Start: 12-08-2022 ambulatory TOMA REN Facil ity:[facility]1 Start: 12-04-2022 End: 12-06-2022 Evaluation and management of inpatient DR SLICK MANDUJANO . Facility:[facility] Start: 11-20-2022 End: 11-20-[address] LUAN BETANCUR . Facility:[facility] Start: 09-12-2022 End: 09-13-[address] LUAN BETANCUR . Facility:[facility] Start: 08-26-2022 End: 08-26-[address] LUAN BETANCUR . Facility:[facility] Start: 07-28-2022 End: 07-29-2022 ambulatory TOMA ABDI VITORLannyTASH Facility:[facility] Start: 05-08-2022 End: 05-09-2022 ambulatory TOMA ABDI VITORKHALIF Facility:[facility] Start: 05-03-2022 ambulatory TOMA REN Facil ity:[facility]1 Start: 05-02-2022 End: 05-03-[address] LUAN BEATNCUR . Facility:[facility] Start: 03-23-2022 End: 03-23-2022 ambulatory Sarah Dominguez Other [employer] Other Start: 03-23-2022 Office outpatient ne w 20 minutes Sarah Dominguez [facility] Start: 03-10-2022 End: 03-10-2022 Patient encounter procedure [facility] Start: 02-26-[address] SLICK MANDUJANO . Fa cility:[facility]1 Start: 02-15-2022 Chart Update Sailaja Agosto lz Work Phone: -JOSE Nurse Midwifery[facility] M DO Work Phone: Start: 02-14-2022 Office outpatient ne w 30 minutes Sailaja Ren Work Phone: -[facility] [address] M DO Work Phone: Procedures Date Procedure Procedure Detail Performing Clinician Start: 12-13-2024 Urnls dip stick/tabl et rgnt non-auto w/o micrscp Luan Pipe DO Work Phone: Start: 11-28-2024 Urnls dip stick/tabl et rgnt non-auto w/o micrscp Ana ARMENTA Work Phone: Start: 11-19-2024 ALL CBC WITH AUTO DIFF Luan Pipe DO Work Phone: Start: 11-14-2024 Urnls dip stick/tabl et rgnt non-auto w/o micrscp Luan Pipe DO Work Phone: Start: 10-31-2024 RECURRENT VAGINITIS (HTRX) Luan Pipe DO Work Phone: Start: 10-31-2024 Urnls dip stick/tabl et rgnt non-auto w/o micrscp Ana ARMENTA Work Phone: Start: 10-03-2024 ALL CBC WITH AUTO DIFF Luan Pipe DO Work Phone: Start: 10-03-2024 Urnls dip stick/tabl et rgnt non-auto w/o micrscp Ana ARMENTA Work Phone: Start: 08-31-2024 Urnls dip stick/tabl et rgnt non-auto w/o micrscp Luan Pipe DO Work Phone: Start: 07-29-2024 Urnls dip stick/tabl et rgnt non-auto w/o micrscp Luan Pipe DO Work Phone: Start: 07-14-2024 [facility] PREG QUANT HCG Core y Pipe DO Work Phone: Start: 12-04-2022 Delivery of Products of Conception, External Approach DR LUAN BETANCUR . Start: 12-04-2022 Repair Perineum Skin , External Approach DR LUAN BETANCUR . Plan of Treatment Date Care Activity Detail Author Start: 12-20-2024 End: 12-20-2024 Patient encounter procedure 12/20/2024 8:30 AM EDT Routine [facility] [address] [place] [id number] Ana Polo PA [address] [place], [place] [id number] [facility] Start: 12-13-2024 End: 12-13-2024 Patient encounter procedure 12/13/2024 10:30 AM EDT Routine [facility] [address] [place] [address] Luan Betancur, DO [address] [place], [place] [id number] [facility] Start: 11-28-2024 End: 11-28-2024 Patient encounter procedure [facility] Comment on above: Arrived Start: 11-14-2024 End: 11-14-2025 CBC panel - Blood by Automated count CBC Lab Routine Diabetes mellitus screening Expected: 11/14/2024 (Approximate), Expires: 11/14/2025 [facility] Work Phone: Comment on above: Expected: 11/14/2024 (Approximate), Expires: 11/14/2025 Start: 11-14-2024 End: 11-14-2025 Measurement of glucose 1 hour after glucose challenge for glucose tolerance test Glucose tolerance, 1 hour Lab Routine Diabetes mellitus screening Expected: 11/14/2024 (Approximate), Expires: 11/14/2025 [facility] Comment on above: Expected: 11/14/2024 (Approximate), Expires: 11/14/2025 Start: 11-14-2024 End: 11-14-2024 Patient encounter procedure 11/14/2024 9:30 AM EST Routine [facility] [address] [place] [id number] Luan Betancur, DO [address] [place], [place] [id number] [facility] Start: 11-14-2024 End: 11-14-2024 Professional / ancillary services management 11/14/2024 9:00 AM EST Ancillary Procedure [facility] [address] [place] [id number] [facility] Start: 10-31-2024 End: 10-31-2025 US for US OB follow up transabdominal approach Imaging Routine size inconsistent with dates Expected: 10/31/2024, Expires: 10/31/2025 [facility] Comment on above: Expected: 10/31/2024 , Expires: 10/31/2025 Start: 10-31-2024 End: 10-31-2024 Patient encounter procedure [facility] Comment on above: Arrived Start: 10-03-2024 Bacteria identified in Urine by Culture Urine Culture [facility] Start: 10-03-2024 Urine culture [facility] Start: 10-03-2024 End: 10-03-2024 Patient encounter procedure 10/03/2024 11:30 AM EST Routine [facility] [address] [place] [phone] Ana Polo PA [address] [place] [address] [facility] Start: 10-03-2024 End: 10-03-2024 Professional / ancillary services management 10/03/2024 10:30 AM EST Ancillary Procedure [facility] [address] [place] [id number] [facility] Start: 08-31-2024 End: 08-31-2024 Patient encounter procedure [facility] Comment on above: Arrived Start: 08-31-2024 End: 08-31-2024 Professional / ancillary services management 08/31/2024 2:30 PM EST Ancillary Procedure [facility] [address] [place] [phone] [facility] Start: 08-31-2024 End: 11-29-2024 Alpha fetoprotein, maternal Alpha fetoprotein, maternal Lab Routine 20 weeks gestation of Expected: 08/31/2024 (Approximate), Expires: 11/29/2024 [facility] Work Phone: Comment on above: Expected: 08/31/2024 (Approximate), Expires: 11/29/2024 Start: 08-31-2024 End: 08-31-2025 US for US OB PLACENTA W US OB TRANSVAGINAL Imaging Routine Low-lying placenta Expected: 08/31/2024 (Approximate), Expires: 08/31/2025 [facility] Comment on above: Expected: 08/31/2024 (Approximate), Expires: 08/31/2025 Start: 07-29-2024 End: 07-29-2025 ABO/Rh ABO/Rh Lab Routine Missed menses , unspecified gestational age Expected: 07/29/2024 (Approximate), Expires: 07/29/2025 [facility] Comment on above: Expected: 07/29/2024 (Approximate), Expires: 07/29/2025 Start: 07-29-2024 End: 07-29-2025 Blood type and Indirect antibody screen panel - Blood Type and screen Lab Routine Missed menses , unspecified gestational age Expected: 07/29/2024 (Approximate), Expires: 07/29/2025 [facility] Work Phone: Comment on above: Expected: 07/29/2024 (Approximate), Expires: 07/29/2025 Start: 07-29-2024 End: 07-29-2025 Drugs of abuse panel - Urine by Screen method Rapid drug screen, urine Lab Routine , unspecified gestational age Encounter for supervision of normal first in first trimester Expected: 07/29/2024 (Approximate), Expires: 07/29/2025 [facility] Comment on above: Expected: 07/29/2024 (Approximate), Expires: 07/29/2025 Start: 07-29-2024 End: 07-29-2025 US for [facility] Comment on above: Expected: 07/29/2024 (Approximate), Expires: 07/29/2025 Start: 07-29-2024 End: 07-29-2025 US Pelvis transvaginal US OB transvaginal Imaging Routine Missed menses Expected: 07/29/2024 (Approximate), Expires: 07/29/2025 [facility] Comment on above: Expected: 07/29/2024 (Approximate), Expires: 07/29/2025 Start: 05-29-2024 Influenza vaccination Influenza Vacc ine (#1) [facility] Bacteria identified in Urine by Culture Urine culture Microbiology Routine Missed menses Ordered: 07/29/2024 [facility] Comment on above: Ordered: 07/29/2024 CBC W Auto Different ial panel - Blood CBC and differential Lab Routine Missed menses , unspecified gestational age Ordered: 07/29/2024 [facility] Comment on above: Ordered: 07/29/2024 CHLAMYDIA TRACHOMATI S (GENITO/STI) CHLAMYDIA TRACHOMATIS (GENITO/STI) Lab Routine STD exposure Ordered: 10/31/2024 [facility] Comment on above: Ordered: 10/31/2024 Hemoglobin A1c/Hemoglobin.total in Blood Hemoglobin A1c Lab Routine Missed menses , unspecified gestational age Ordered: 07/29/2024 [facility] Comment on above: Ordered: 07/29/2024 Hepatitis B virus surface Ag [Presence] in Serum or Plasma by Immunoassay Hepatitis B surface antigen Lab Routine Missed menses , unspecified gestational age Ordered: 07/29/2024 [facility] Comment on above: Ordered: 07/29/2024 Hepatitis C virus Ab [Presence] in Serum or Plasma by Immunoassay Hepatitis C antibody Lab Routine Missed menses , unspecified gestational age Ordered: 07/29/2024 [facility] Comment on above: Ordered: 07/29/2024 HIV-1/HIV-2 antigen/antibody combination immunoassay HIV-1 and HIV-2 antibodies Lab Routine Missed menses , unspecified gestational age Ordered: 07/29/2024 [facility] Comment on above: Ordered: 07/29/2024 Neisseria gonorrhoea e DNA [Presence] in Unspecified specimen by PEPE with probe detection Neisseria gonorrhea DNA probe, direct Lab Routine STD exposure Ordered: 10/31/2024 [facility] Comment on above: Ordered: 10/31/2024 Reagin Ab [Presence] in Serum by RPR RPR Lab Routine Missed menses , unspecified gestational age Ordered: 07/29/2024 [facility] Comment on above: Ordered: 07/29/2024 Rubella antibody, IgG Rubella an tibody, IgG Lab Routine Missed menses , unspecified gestational age Ordered: 07/29/2024 [facility] Comment on above: Ordered: 07/29/2024 SURESWAB(R) ADVANCED VAGINITIS PLUS, TMA SURESWAB(R) ADVANCED VAGINITIS PLUS, TMA Pathology and Cytology Routine Vaginal discharge Ordered: 10/31/2024 [facility] Work Phone: Comment on above: Ordered: 10/31/2024 Payers Date Payer Category Payer Medicaid [id number] 2024 Medicaid [id number] 1996 Unknown [id number] 2.16.84 0.1.295716.3.579.2.593 1996 Unknown [id number] 2.16.84 0.1.294020.3.579.2.593 1996 Unknown [id number] 2.16.84 0.1.123259.3.579.2.593 1996 Unknown [id number] 2.16.84 0.1.371272.3.579.2.593 1996 Unknown [id number] 2.16.84 0.1.153197.3.579.2.593 1996 Unknown [id number] 2.16.84 0.1.689353.3.579.2.593 1996 Unknown [id number] 2.16.84 0.1.186083.3.579.2.593 1996 Unknown [id number] 2.16.84 0.1.770420.3.579.2.593 1996 Unknown [id number] 2.16.84 0.1.461618.3.579.2.593 1996 Unknown [id number] 2.16.84 0.1.786347.3.579.2.593 1996 Unknown [id number] 2.16.84 0.1.877360.3.579.2.1259 1996 Unknown [id number] 2.16.84 0.1.279934.3.579.2.1259 1996 Unknown [id number] 2.16.84 0.1.705108.3.579.2.1259 1996 Unknown [id number] 2.16.84 0.1.521477.3.579.2.1259 1996 Unknown [id number] 2.16.84 0.1.895674.3.579.2.1259 1996 Unknown [id number] 2.16.84 0.1.771279.3.579.2.1259 1996 Unknown [id number] 2.16.84 0.1.106063.3.579.2.1259 1996 Unknown [id number] 2.16.84 0.1.179966.3.579.2.1259 1996 Unknown [id number] 2.16.84 0.1.876117.3.579.2.1259 1959 Self-pay [id number] 1958 Unknown [id number] Unknown ANTHEM Unknown [id number] 2.16.8 40.1.778581.3.579.2.531 Social History Date Type Detail Facility Tobacco smoking status NHIS Unknown if ever smoked [facility] Work Phone: Start: 1995 Sex Assigned At Female F [facility] Sex Assigned At [facility] [employer] Other Tobacco smoking status NHIS Tobacco smoking consumption unknown [facility] Start: 1995 Sex assigned at Not on file [facility] Start: 04-25-2024 [facility] Start: 09-10-2018 Tobacco smoking status NHIS Never smoked tobacco (finding) [facility] Start: 10-05-2024 Sex Female (finding) [facility] Clinical Notes 02-14-2022 to 12-13-2024 Tatiana Angel, [facility] - 12/13/2024 10:30 AM Mj Polo, [place] - 11/28/2024 9:50 AM Reddy Mock, [facility] - 11/14/2024 9:30 AM Tomás Ling, [facility] - 10/31/2024 8:50 AM EST Note Date & Type Note Facility 12-13-2024 History of Presen t illness Narrative Reason [...] nursing note reviewed. Exam conducted with a prop and effects designer present. Vitals: Estimated body mass index is 28.79 kg/m as calculated from the following: Height as of 01/15/23: 5' 2 . Weight as of this encounter: 157 lb 6.4 oz. BP: 108/62 No LMP recorded (lmp unknown). Patient is . ASSESSMENT & PLAN ICD-10-CM 1. 35 weeks gestation of Z3A.35 POCT urinalysis dipstick manually resulted 2. Third trimester Z34.93 Return OB: Patient presents today for a routine obstetrics appointment. Patient is currently 35w1d . Patient states she is doing well but has complaints of being tired due to current . Patient has verbalizes frequent movement. labor precautions was discussed/given and patient was instructed to perform kick counts three times a day. Orders Placed This Encounter Procedures POCT urinalysis dipstick manually resulted Follow Up: Patient is to return to office in 1 week for routine OB appointment. Documented by Tatiana Angel LPN on behalf of: Luan Betancur DO documented in this encounter [facility] 11-28-2024 History of Presen t illness Narrative Reason [...] reviewed. Vitals: Estimated body mass index is 28.19 kg/m as calculated from the following: Height as of 01/15/23: 5' 2 . Weight as of this encounter: 154 lb 1.9 oz. BP: 110/64 No LMP recorded (lmp unknown). Patient is . ASSESSMENT & PLAN ICD-10-CM 1. Third trimester Z34.93 POCT urinalysis dipstick manually resulted 2. 33 weeks gestation of Z3A.33 Return OB: Patient presents today for a routine obstetrics appointment. Patient is currently 33w0d . Patient states she is doing well [...] of: GEOVANY Burks documented in this encounter [facility] 11-14-2024 History of Presen t illness Narrative [...] nursing note reviewed. Exam conducted with a prop and effects designer present. Vitals: Estimated body mass index is 28.35 kg/m as calculated from the following: Height as of 01/15/: 5' 2 . Weight as of this [...] 31w0d with a Estimated Date of Delivery: 4/21/25. Patient given order for 1 hour gtt and CBC to be drawn prior to next appointment. Patient to return to clinic in 2 weeks. Documented by Tatianna Mock LPN on behalf of: Luan Betancur DO documented in this encounter [facility] 10-31-2024 History of Presen t illness Narrative [...] of: mannie burks documented in this encounter [facility] 10-03-2024 History of Presen t illness Narrative [...] of: GEOVANY Burks documented in this encounter [facility] 08-31-2024 History of Presen t illness Narrative [...] nursing note reviewed. Exam conducted with a prop and effects designer present. Vitals: Estimated body mass index is [...] by Tatiana Angel LPN on behalf of: Luan Betancur DO documented in this encounter [facility] 07-29-2024 History of Presen t illness Narrative [...] or undercooked meat, and stay away from [facility]. Patient has also been advised to not [...] by: Ethel Chung documented in this encounter [facility] 03-23-2022 Evaluation note Encounter Date Diagnosis Assessment [...] Contact dermatitis home care material was printed [employer] Other 05-20-2022 NoteOrders HCG, Beta Quantitative; Status:In Progress - Specimen/Data Collected,Retrospective Authorization; Done: [id number] Provider Impressions New pt presents today to discuss her situation. Pt's LMP was 09/09/21 w/ a history of monthly cycles. She had a positive test . Then had bleeding in early October, but continued to have positive urine HCGs. Pt was seeing her FOB's mother who is a carpet layer helper who heard a heartbeat w/ a doppler and her abdomen was getting bigger. Three days ago, pt went to a doctor out near her home in [place] and was told that she was not . An ultrasound and test were negative. No info was found in the [facility]. We discussed the fact that most [...] care (V22.1) (Z34.90) Vitals Vital Signs Recorded: [id number] 02:22PM [id number] Otkxkhzas01 Height5 ft 2 in Awaqtw327 lb 4 oz BMI Bkkczbldws54.55 kg/m2 BSA Calculated1.61 PHQ-2 #1. Over the last 2 weeks have you felt down, depressed or hopeless? (If yes, answer PHQ-9 below)No PHQ-2 #2. Over the last 2 weeks have you felt little interest or pleasure in doing things? (If yes,answer PHQ-9 below)No Fall Screeninga) No falls within the last year [id number] Pain Scale0 Physical Exam Constitutional: Alert and in no acute distress. Well developed, well nourished Eyes: Normal external exam - nonicteric sclera, extraocular movements intact (EOMI) and no ptosis. Pulmonary: No respiratory distress Abdomen: soft nontender; no abdominal mass palpated, no organomegaly and no hernias Signatures Electronically signed by : KOURTNEY Cummings; Feb 14 2022 3:16PM EST (Author) TouchworksEvaluation noteNo assessment information availableCleveland Clinic [facility]inte Hospital Work Phone: Evaluation note* Diagnosis Missed menses , unspecified gestational age Encounter for supervision of normal first in first trimester Screening, , for anatomic survey Encounter for anatomic survey [facility] Diagnosis 20 weeks gestation of Second trimester state, incidental Low-lying placenta Hemorrhage from placenta previa, unspecified as to episode of care [facility]* Diagnosis 25 weeks gestation of Second trimester state, incidental [facility]* Diagnosis size inconsistent with dates- Primary Third trimester state, incidental 29 weeks gestation of STD exposure Vaginal discharge Leukorrhea, not specified as infective [facility]* Diagnosis Third trimester state, incidental 31 weeks gestation of Diabetes mellitus screening Screening for diabetes mellitus [facility]* Diagnosis Third trimester state, incidental 33 weeks gestation of [facility]* Diagnosis 35 weeks gestation of Third trimester state, incidental [facility] N[facility]ative - Reported* Type Description Date Surgical History right ear tube placed [employer] Other Chief Complaint Pt. states that she [...] section and content) DATE CREATED AUTHOR 02/16/2022 [facility] DATE CREATED AUTHOR AUTHOR'S ORGANIZ ATION 02/16/2022 [employer] DATE CREATED AUTHOR AUTHOR'S ORGANIZ ATION 03/10/2022 [facility] DATE CREATED AUTHOR AUTHOR'S ORGANIZ ATION 02/11/2023 [facility] DATE CREATED AUTHOR AUTHOR'S ORGANIZ ATION 11/17/2023 [facility] DATE CREATED AUTHOR AUTHOR'S ORGANIZ ATION 10/10/2024 [facility] DATE CREATED AUTHOR AUTHOR'S ORGANIZ ATION 12/15/2024 [facility] [employer] Care Teams (unrecognized sec tion and content) Team Status: Inactive Member Role Status Dates NON STAFF Primary Care Provider Active Alisia Burciaga MD Attending Provider Active Team Status: Active Member Role Status Dates NON STAFF Primary Care Provider Active Team Status: Inactive Member Role Status Dates Luan Betancur Attending Provider Active Start: 2023 End: November 16, 2023 Team Status: Inactive Member Role Status Dates Luan Betancur DO Attending Provider Active Start : [...] BE BASED ON THE PRIMARY CLINICAL RECORDS. [facility] [employer] provides no warranty or guarantee of the accuracy or completeness of information in this document.
== END 2024-12-20 12:14 | disposition home or self-care (01) ==
LOC: LAB 12:13
PROVIDERS: Visit Provider Physician Assistant
DX: Z34.93 Encounter for supervision of normal pregnancy, unspecified, third trimester (principal); Z3A.36 36 weeks gestation of pregnancy
CPT/HCPCS: 36415; 87081

== ENCOUNTER 2025-01-10 05:23 | Inpatient (IN) | payer MEDICAID, SELFPAY ==
[2025-01-10] VITALS (46 sets, daily range): BP systolic 79–128; BP diastolic 40–82; PULSE 73–86; TEMP 36.3–37.4; O2SAT 92–98
--- OUTSIDE RECORDS SUMMARY | 2025-01-10 05:27 | XMS_ITS | CCD ---
Author Organization [facility] Care Team Providers Care Roll Scale Worker Name Role Phone Sailaja Ren Tiffanie Unavailable NON STAFF Primary Care Provider UnavailMD Alisia Smith Attending Provider Sarah Dominguez Unavailable PIPE ., DR MCBRIDE Consulting Unavailable PIPE ., DR MCBRIDE Attending Unavailable AICHHOLZ, ACCOUNT DEVELOPMENT SPECIALIST SAILAJA Primary Care Unavailable PIPE ., DR MCBRIDE Admitting Unavailable ZIEBER, DR GM Rae Consulting Unavailable KARASIK ., DR KRUGER Consulting Unavailabl e KARASIK ., DR KRUGER Attending Unavailabl e AICHHOLZ, ACCOUNT DEVELOPMENT SPECIALIST SAILAJA Primary Care Unavailable KARASIK ., DR KRUGER Admitting Unavailabl e PIPE ., DR MCBRIDE Procedure Practitioner Unavail able PIPE ., DR MCBRIDE Consulting Unavailable KARASIK ., DR KRUGER Admitting Unavailabl e KARASIK ., DR KRUGER Attending Unavailabl e AICHHOLZ, ACCOUNT DEVELOPMENT SPECIALIST SAILAJA Primary Care Unavailable AICHHOLZ, ACCOUNT DEVELOPMENT SPECIALIST SAILAJA Primary Care Unavailable PIPE ., DR MCBRIDE Attending Unavailable PIPE ., DR MCBRIDE Admitting Unavailable AICHHOLZ, ACCOUNT DEVELOPMENT SPECIALIST SAILAJA Primary Care Unavailable PIPE ., DR MCBRIDE Attending Unavailable PIPE ., DR MCBRIDE Admitting Unavailable PIPE ., DR MCBRIDE Consulting Unavailable AICHHOLZ, ACCOUNT DEVELOPMENT SPECIALIST SAILAJA Primary Care Unavailable IPPE ., DR MCBRIDE Attending Unavailable PIPE ., DR MCBRIDE Admitting Unavailable PIPE ., DR MCBRIDE Consulting Unavailable AICHHOLZ, ACCOUNT DEVELOPMENT SPECIALIST SAILAJA Primary Care Unavailable PIPE ., DR MCBRIDE Attending Unavailable PIPE ., DR MCBRIDE Admitting Unavailable PIPE ., DR MCBRIDE Consulting Unavailable AICHHOLZ, ACCOUNT DEVELOPMENT SPECIALIST SAILAJA Primary Care Unavailable PIPE ., DR MCBRIDE Attending Unavailable PIPE ., DR MCBRIDE Admitting Unavailable AICHOLZ, ACCOUNT DEVELOPMENT SPECIALIST SAILAJA Primary Care Unavailable PIPE ., DR MCBIRDE Attending Unavailable PIPE ., DR MCBRIDE Admitting Unavailable PIPE ., DR MCBRIDE Consulting Unavailable ZIEBER, DR GM Rae Consulting Unavailable AICHHOLZ, ACCOUNT DEVELOPMENT SPECIALIST SAILAJA Primary Care Unavailable PIPE ., DR MCBRIDE Attending Unavailable PIPE ., DR MCBRIDE Consulting Unavailable PIPE ., DR MCBRIDE Admitting Unavailable Pipe, Luan Attending Provider Pipe, Luan Attending Unavailable Pipe, Luan Admitting Unavailable Unavailable Primary Care Provider Unavailabl e Pipe DO, Luan Attending Provider Pipe, Luan Admitting Unavailable Pipe, Luan Attending Unavailable Pipe, Luan Attending Unavailable Pipe, Luan Admitting Unavailable PIPE, LUAN Attending Unavailable PHILLIP, ANA Attending Unavailable PIPE, LUAN Attending Unavailable PIPE, LUAN Attending Unavailable PHILLIP, ANA Attending Unavailable PIPE, LUAN Attending Unavailable PHILLIP, ANA Attending Unavailable PIPE, LUAN Attending Unavailable PIPE, LUAN Attending Unavailable Allergies Allergy Classification Reported Allergen(s) Allergy Type Date of Onset Reaction(s) Facility (20 sources) Amoxicillin Drug Allergy 4 hives, Unknown [facility] (1 source) Amoxicillin Drug Allergy 3 [facility] (20 sources) Penicillin G Drug Allergy 4 Unknown [facility] (1 source) Amoxicillin Drug Allergy 4 [facility] Rep[facility] Medications Current Medications Medication Drug Class(es) [...] D2) (Vitamin D2) 50,000 unit Capsule Active 30545 UNIT PO every week October 05, 2018 12:00am predniSONE 20 mg oral tablet (1 source) Start: 03-23-2022 take 1 tablet by mouth every twelve hours predniSONE 20 MG 1 tablet Orally 2 times a day for 5 day(s) Feb, Active Vit-Fe Fumarate-FA (PNV Plus Multivitamin) 27-1 MG tablet (20 sources) Vit-Fe Fumarate-FA (PNV Plus Multivitamin) 27-1 [...] [35 weeks gestation of ] 12-13-2024 Episodic Residual codes; unclassified (2 sources) Gestation period, 37 weeks; Translations: [37 weeks gestation of ] 12-27-2024 Episodic Residual codes; unclassified (2 sources) Gestation period, 38 weeks; Translations: [38 weeks gestation of ] 01-03-2025 Episodic Past or Other Problems Problem Classification [...] Range Facility Urinalysis macro (dipstick) panel (U)on 01-03-2025 Bilirubin, UA Negative Negative - 4(70) +++ mg/dL [facility] Blood, UA Negative Negative - 50 Serafin/mcL [facility] Clarity, UA Clear [facility] Color, UA Yellow [facility] Glucose, UA Negative Negative - 1999(110) ++++ mg/dL [facility] Interpretation and review of laboratory results Abnormal [facility] Ketones, UA Negative Negative - 160(16) ++++ mg/dL [facility] Leukocytes, UA Trace Negative - 500+++ Princess/mcL [facility] Nitrite, UA Negative Negative - Positive [facility] pH, UA 6.5 5 - 9 [facility] Protein, UA Negative Negative - 1999(20) ++++ mg/dL [facility] Spec Grav, UA 1.02 1 - 1.03 [facility] Urobilinogen, UA 0.2 0.2 - 12 mg/dL [facility] hospital Urinalysis macro (dipstick) panel (U)on 12-27-2024 Bilirubin, UA Negative Negative - 4(70) +++ mg/dL [facility] Blood, UA Positive Negative - 50 Serafin/mcL [facility] Comment on above: small Clarity, UA Clear [facility] Color, UA Yellow [facility] Glucose, UA Negative Negative - 1999(110) ++++ mg/dL [facility] Interpretation and review of laboratory results Abnormal [facility] Ketones, UA Negative Negative - 160(16) ++++ mg/dL [facility] Leukocytes, UA Positive Negative - 500+++ Princess/mcL [facility] Comment on above: small Nitrite, UA Negative Negative - Positive [facility] pH, UA 7 5 - 9 [facility] Protein, UA Negative Negative - 1999(20) ++++ mg/dL [facility] Spec Grav, UA 1.02 1 - 1.03 [facility] Urobilinogen, UA 0.2 0.2 - 12 mg/dL Critical access hospital ALL MISCELLANEOUS TESTon MISCELLANEOUS TEST COMMENT . [facility] Comment on above: Test Ordered: [id number] Strep Gp B Culture+Rflx Strep Gp B Culture+Rflx Negative CB Reference Range: Negative Centers for Disease Control and Prevention (CDC) and [place] [employer] of Obstetricians and Gynecologists (ACOG) guidelines for prevention of group B streptococcal (GBS) disease specify co-collection of a vaginal and rectal swab specimen to maximize sensitivity of GBS detection. Per the CDC and ACOG, swabbing both the lower vagina and rectum substantially increases the yield of detection compared with sampling the vagina alone. Penicillin G, ampicillin, or cefazolin are indicated for intrapartum prophylaxis of GBS colonization. Reflex susceptibility testing should be performed prior to use of clindamycin only on GBS isolates from penicillin- allergic women who are considered a high risk for anaphylaxis. Treatment with vancomycin without additional testing is warranted if resistance to clindamycin is noted. Performed at: [facility] [id number] Rn Medicare: Thiago Matos PhD, Phone: [phone] GROUP B STREP [id number] Group B Streptococcus Colonization Detection Culture With Re [facility] Urinalysis macro (dipstick) panel (U)on 12-13-2024 Bilirubin, UA Negative Negative - 4(70) +++ mg/dL [facility] Blood, UA Negative Negative - 50 Serafin/mcL [facility] Clarity, UA Clear [facility] Color, UA Yellow [facility] Glucose, UA Negative Negative - 1999(110) ++++ mg/dL [facility] Interpretation and review of laboratory results Abnormal [facility] Ketones, UA Negative Negative - 160(16) ++++ mg/dL [facility] Leukocytes, UA Positive Negative - 500+++ Princess/mcL [facility] Comment on above: small Nitrite, UA Negative Negative - Positive [facility] pH, UA 7 5 - 9 [facility] Protein, UA Negative Negative - 1999(20) ++++ mg/dL [facility] Spec Grav, UA 1.015 1 - 1.03 [facility] Urobilinogen, UA 0.2 0.2 - 12 mg/dL [facility] hospital Urinalysis macro (dipstick) panel (U)on 11-28-2024 Bilirubin, UA Negative Negative - 4(70) +++ mg/dL [facility] Blood, UA Negative Negative - 50 Serafin/mcL [facility] Clarity, UA Clear [facility] Color, UA Yellow [facility] Glucose, UA Negative Negative - 1999(110) ++++ mg/dL [facility] Interpretation and review of laboratory results Abnormal [facility] Ketones, UA Negative Negative - 160(16) ++++ mg/dL [facility] Leukocytes, UA Positive Negative - 500+++ Princess/mcL [facility] Comment on above: small Nitrite, UA Negative Negative - Positive [facility] pH, UA 7 5 - 9 [facility] Protein, UA Negative Negative - 1999(20) ++++ mg/dL [facility] Spec Grav, UA 1.02 1 - 1.03 [facility] Urobilinogen, UA 0.2 0.2 - 12 mg/dL Critical [facility] hospital ALL CBC WITH AUTO DIFFon BASOPHILS ABSOLUTE AUTO 0 [facility] Basophils/100 WBC (Bld) 0.2 % 0.2 - 2.0 % [facility] Eosinophils/100 WBC (Bld) 1 % 0.9 - 7.0 % [facility] Erythrocyte distribution width (RBC) [Ratio] 12.6 % 11.0 - 15.0 % [facility] Hematocrit (Bld) [Volume fraction] 35 % Low 36.0 - 48.0 % [facility] Hemoglobin (Bld) [Mass/Vol] 12.3 g/dL 12.0 - 16.0 g/dL [facility] IMMATURE GRANULOCYTES ABS AUTO 0.04 High [facility] Immature granulocytes/100 WBC (Bld) 0.5 % 0.0 - 0.5 % [facility] Interpretation and review of laboratory results Abnormal [facility] LYMPHOCYTES ABSOLUTE AUTO 1.2 [facility] Lymphocytes/100 WBC (Bld) 14.1 % Low 20.5 - 60.0 % [facility] MCH (RBC) [Entitic mass] 32.5 pg 26.7 - 34.0 pg [facility] MCHC (RBC) [Mass/Vol] 35.1 g/dL 29.9 - 35.2 g/dL [facility] MCV (RBC) [Entitic vol] 92.3 fL 81.0 - 99.0 fL [facility] MONOCYTES ABSOLUTE AUTO 0.4 [facility] Monocytes/100 WBC (Bld) 5 % 1.7 - 12.0 % [facility] NEUTROPHILS ABSOLUTE AUTO 7 High [facility] Neutrophils/100 WBC (Bld) 79.2 % High 43.0 - 75.0 % [facility] Platelet mean volume (Bld) [Entitic vol] 9.4 fL Low 9.5 - 13.5 fL [facility] TBH EO # 0.1 [facility] TBH PLT 184 [facility] TB RBC 3.79 Low [facility] WBC 8.8 [facility] US OB FOLLOW UP TRANSABDOMIN AL APPROACHon [...] 1805 gm / 3 lbs, 15 oz (2943-6163 gm) [place] Normal: 1751 gm (2881-3948 gm) [place] Wt%: 59% for 31.0 wks [...] UA Negative Negative - 4(70) +++ mg/dL [facility] Blood, UA Negative Negative - 50 Serafin/mcL [facility] Clarity, UA Clear [facility] Color, UA Yellow [facility] Glucose, UA Negative Negative - 2000(110) ++++ mg/dL [facility] Interpretation and review of laboratory results Normal [facility] Ketones, UA Negative Negative - 160(16) ++++ mg/dL [facility] Leukocytes, UA Negative Negative - 500+++ Princess/mcL [facility] Nitrite, UA Negative Negative - Positive [facility] pH, UA 7 5 - 9 [facility] Protein, UA Negative Negative - 1999(20) ++++ mg/dL [facility] Spec Grav, UA 1.015 1 - 1.03 [facility] Urobilinogen, UA 0.2 0.2 - 12 mg/dL [facility] RECURRENT VAGINITIS (HTRX)on 11-01-2024 ATOPOBIUM VAGINAE 0 [facility] ATOPOBIUM VAGINAE Not detected [facility] BVAB 2,3 (BACTERIAL VAGINOSIS ASSOCIATED BACTERIA 2, 3); MOBILUNCUS SPP 0 [facility] BVAB 2,3 (BACTERIAL VAGINOSIS ASSOCIATED BACTERIA 2, 3); MOBILUNCUS SPP Not detected [facility] DOMINIC ALBICANS, PARAPSILOSIS, TROPICALIS 0 [facility] DOMINIC ALBICANS, PARAPSILOSIS, TROPICALIS Not detected [facility] DOMINIC GLABRATA 0 [facility] DOMINIC GLABRATA Not detected [facility] DOMINIC KRUSEI 0 [facility] DOMINIC KRUSEI Not detected [facility] CHLAMYDIA TRACHOMATIS 0 [facility] CHLAMYDIA TRACHOMATIS Not detected N [facility] GARDNERELLA VAGINALIS 0 [facility] GARDNERELLA VAGINALIS Not detected N [facility] MEGASPHAERA (TYPES 1, 2) 0 [facility] MEGASPHAERA (TYPES 1, 2) Not detected [facility] MYCOPLASMA GENITALIUM 0 [facility] MYCOPLASMA GENITALIUM Not detected N [facility] NEISSERIA GONORRHOEAE 0 [facility] NEISSERIA GONORRHOEAE Not detected N [facility] TRICHOMONAS VAGINALIS 0 [facility] TRICHOMONAS VAGINALIS Not detected N [facility] Urinalysis macro (dipstick) panel (U)on 10-31-2024 Bilirubin, UA Negative Negative - 4(70) +++ mg/dL [facility] Blood, UA Negative Negative - 50 Serafin/mcL [facility] Clarity, UA Clear [facility] Color, UA Yellow [facility] Glucose, UA Negative Negative - 1999(110) ++++ mg/dL [facility] Interpretation and review of laboratory results Normal [facility] Ketones, UA Negative Negative - 160(16) ++++ mg/dL [facility] Leukocytes, UA Negative Negative - 500+++ Princess/mcL [facility] Nitrite, UA Negative Negative - Positive [facility] pH, UA 7.5 5 - 9 [facility] Protein, UA Negative Negative - 1999(20) ++++ mg/dL [facility] Spec Grav, UA 1.015 1 - 1.03 [facility] Urobilinogen, UA 1.0 0.2 - 12 mg/dL Critical [facility] hospital ALL CBC WITH AUTO DIFFon BASOPHILS ABSOLUTE AUTO 0 [facility] Basophils/100 WBC (Bld) 0.2 % 0.2 - 2.0 % [facility] Eosinophils/100 WBC (Bld) 1.2 % 0.9 - 7.0 % [facility] Erythrocyte distribution width (RBC) [Ratio] 12.3 % 11.0 - 15.0 % [facility] Hematocrit (Bld) [Volume fraction] 37.6 % 36.0 - 48.0 % [facility] Hemoglobin (Bld) [Mass/Vol] 13 g/dL 12.0 - 16.0 g/dL [facility] IMMATURE GRANULOCYTES ABS AUTO 0.05 High [facility] Immature granulocytes/100 WBC (Bld) 0.5 % 0.0 - 0.5 % [facility] Interpretation and review of laboratory results Abnormal [facility] LYMPHOCYTES ABSOLUTE AUTO 2 [facility] Lymphocytes/100 WBC (Bld) 18.9 % Low 20.5 - 60.0 % [facility] MCH (RBC) [Entitic mass] 31.4 pg 26.7 - 34.0 pg [facility] MCHC (RBC) [Mass/Vol] 34.6 g/dL 29.9 - 35.2 g/dL [facility] MCV (RBC) [Entitic vol] 90.8 fL 81.0 - 99.0 fL [facility] MONOCYTES ABSOLUTE AUTO 0.5 [facility] Monocytes/100 WBC (Bld) 4.7 % 1.7 - 12.0 % [facility] NEUTROPHILS ABSOLUTE AUTO 7.7 High [facility] Neutrophils/100 WBC (Bld) 74.5 % 43.0 - 75.0 % [facility] Platelet mean volume (Bld) [Entitic vol] 9.4 fL Low 9.5 - 13.5 fL [facility] TB EO # 0.1 [facility] TBH PLT 287 [facility] RBC 4.14 Low [facility] TBH WBC 10.3 [facility] US OB LIMITED 1+ FETUSESon 0 10-03-2024 [...] UA Negative Negative - 4(70) +++ mg/dL [facility] Blood, UA Negative Negative - 50 Serafin/mcL [facility] Clarity, UA Clear [facility] Color, UA Yellow [facility] Glucose, UA Negative Negative - 1999(110) ++++ mg/dL [facility] Interpretation and review of laboratory results Normal [facility] Ketones, UA Negative Negative - 160(16) ++++ mg/dL [facility] Leukocytes, UA Negative Negative - 500+++ Princess/mcL [facility] Nitrite, UA Negative Negative - Positive [facility] pH, UA 7 5 - 9 [facility] Protein, UA Negative Negative - 1999(20) ++++ mg/dL [facility] Spec Grav, UA 1.02 1 - 1.03 [facility] Urobilinogen, UA 0.2 0.2 - 12 mg/dL [facility] Urine Cultureon 10-03-2024 Bacteria identified Cx Nom (U) <9,000 colonies/ml mixed bacterial skin contaminants 2 Days PERFORMED BY: [facility] [address] [id number] PATHOLOGIST GAS FITTER HELPER DESIREE WARD M.D. Normal [facility] Comment on above: Performed By: #### C UU #### [address] [address] [facility] Urinalysis macro (dipstick) panel (U)on 08-31-2024 Bilirubin, UA Negative Negative - 4(70) +++ mg/dL [facility] Blood, UA Negative Negative - 50 Serafin/mcL [facility] Clarity, UA Clear [facility] Color, UA Yellow [facility] Glucose, UA Negative Negative - 1999(110) ++++ mg/dL [facility] Interpretation and review of laboratory results Normal [facility] Ketones, UA Negative Negative - 160(16) ++++ mg/dL [facility] Leukocytes, UA Negative Negative - 500+++ Princess/mcL [facility] Nitrite, UA Negative Negative - Positive [facility] pH, UA 7 5 - 9 [facility] Protein, UA Negative Negative - 1999(20) ++++ mg/dL [facility] Spec Grav, UA 1.025 1 - 1.03 [facility] Urobilinogen, UA 0.2 0.2 - 12 mg/dL [facility] HCG ( test) Ql (U)o n 07-29-2024 Interpretation and review of laboratory results Abnormal [facility] Preg Test, Ur Positive Negative [facility] Urinalysis macro (dipstick) panel (U)on 07-29-2024 Bilirubin, UA Negative Negative - 4(70) +++ mg/dL [facility] Blood, UA Negative Negative - 50 Serafin/mcL [facility] Clarity, UA Clear [facility] Color, UA Yellow [facility] Glucose, UA Negative Negative - 1999(110) ++++ mg/dL [facility] Interpretation and review of laboratory results Abnormal [facility] Ketones, UA Negative Negative - 160(16) ++++ mg/dL [facility] Leukocytes, UA Positive Negative - 500+++ Princess/mcL [facility] Comment on above: small Nitrite, UA Negative Negative - Positive [facility] pH, UA 8.5 5 - 9 [facility] Protein, UA Trace Negative - 1999(20) ++++ mg/dL [facility] Spec Grav, UA 1.02 1 - 1.03 [facility] Urobilinogen, UA 0.2 0.2 - 12 mg/dL [facility] TBH PREG QUANT HCGon 07-14- 024 HCG QUANTITATIVE [id number] mIU/mL [facility] Comment on above: 5-50 0.2-1 WEEK 50-500 1-2 WEEKS 100-5,000 2-3 WEEKS 500-10,000 3-4 WEEKS 1,000-50,000 4-5 WEEKS 10,000-100,000 5-6 WEEKS 15,000-200,000 6-8 WEEKS 10,000-100,000 2-3 MONTHS [facility] [place] 11-16-2023 L Specimen: [id number] Received: 11/16/23 Status: HUMA Abarca Num: [id number] Spec Type: Surgical Subm Dr: Luan Betancur Tissues: A Placenta - 3rd Trimester (Greater than 28 weeks) (PLACENTA) Procedures: HE/4, Gross/Micro L5 Age/ Patient Sex Location Account Attending Physician Susana Newman 28/F LABELL [id number] Luan Betancur SPEC NUM: [id number] RECD: 11/16/23 STATUS: ARTUROÁngel ABARCA NUM: [id number] MARTHA: 11/16/23- SUBM DR: Luan Betancur ENTERED: 11/16/[address] [facility] [address]: Shawn,Lab SPEC TYPE: Surgical DEPT: [...] red-brown parenchyma 2.7 cm in average thickness. Glass [place] sections are submitted in 4 cassettes as follows: A1 - membranes, umbilical cord, and decidua basalis A2-A3 - Central placenta, full-thickness, with fibrin deposition -------- Specimen: [id number] Received: 11/16/23 Status: HUMA Abarca Num: [id number] Spec Type: Surgical Subm Dr: Luan Betancur Tissues: A Placenta - 3rd Trimester (Greater than 28 weeks) (PLACENTA) Procedures: HE/4, Gross/Micro L5 -------- Patient: Susana Newman [id number] (Continued) -------- Specimen: [id number] Received: 11/16/23 (Continued) Gross Description (Continued) Signed (signature on file) Desiree Ward MD 11/22/23 2135 -------- Specimen: [id number] Received: 11/16/23 Status: HUMA Abarca Num: [id number] Spec Type: Surgical Subm Dr: Luan Betancur Tissues: A Placenta - 3rd Trimester (Greater than 28 weeks) (PLACENTA) Procedures: , Gross/Micro L5 -------- Patient: Susana Newman [id number] (Continued) -------- Specimen: [id number] Received: 11/16/23 (Continued) Gross Description (Continued) A4 - Peripheral placenta CPT Codes 90132 -------- -------- Specimen: [id number] Received: 11/16/23 Status: HUMA Abarca Num: [id number] Spec Type: Surgical Subm Dr: Luan Betancur Tissues: A Placenta - 3rd Trimester (Greater than 28 weeks) (PLACENTA) Procedures: /Jacque, Gross/Micro L5 -------- Patient: Susana Newman [id number] (Continued) -------- Signed (signature on file) Desiree Ward MD 11/22/232134 Normal [facility] CBC W MANUAL DIFFon 12-06-19 ATYPICAL LYMPH # Normal [facility] Comment on above: Performed By: #### C BAYRON #### [facility] [address] [place] [address] Dr. Jennifer Almanza ATYPICAL LYMPH % Normal [facility] Comment on above: Performed By: #### C BCMAN #### [facility] [address] [place] [address] Dr. Jennifer Almanza BAND # 0.0 103/ul Normal 0.0-0.3 [facility] Comment on above: Performed By: #### C BCMAN #### [facility] [address] [place] [address] Dr. Jennifer Almanza BAND % 0 % Normal 0-5 [facility] Comment on above: Performed By: #### C BCMAN #### [facility] [address] [place] [address] Dr. Jennifer Almanza BASOM # 0.00 103/ul Normal 0.00-0.10 [facility] Comment on above: Performed By: #### C BCANGEL #### [facility] [address] [place] [address] Dr. Jennifer Almanza BASOM % 0.0 % Critically low 0.2-2.0 [facility] Comment on above: Performed By: #### C BCANGEL #### [facility] [address] [place] [address] Dr. Jennifer Almanza BLAST # Normal [facility] Comment on above: Performed By: #### C BAYRON #### [facility] [address] [place] [address] Dr. Jennifer Almanza BLAST % Normal [facility] Comment on above: Performed By: #### C BAYRON #### [facility] [address] [place] [address] Dr. Jennifer Almanza CORRECTED WBC Normal 4.0-11.0 [facility] Comment on above: Performed By: #### C BCANGEL #### [facility] [address] [place] [address] Dr. Jennifer Almanza EOS # 0.00 103/ul Normal 0.00-0.70 [facility] Comment on above: Performed By: #### C BCANGEL #### [facility] [address] [place] [address] Dr. Jennifer Almanza EOS% 0.0 % Critically low 0.9-7.0 [facility] Comment on above: Performed By: #### C BAYRON #### [facility] [facility] [address] [address] [address] Jennifer Almanza HCT 32.4 % Critically low 36.0-48.0 [facility] Comment on above: Performed By: #### C BAYRON #### [facility] [address] [address] [address] Jennifer Almanza HGB 11.7 g/dl Critically low 12.0-16.0 [facility] Comment on above: Performed By: #### C BAYRON #### [facility] [address] [address] [address] Jennifer Almanza LYMPHM # 1.62 103/ul Normal 1.20-3.80 [facility] Comment on above: Performed By: #### C BAYRON #### [facility] [address] [place] [address] Dr. Jennifer Almanza LYMPHM% 8.0 % Critically low 20.5-60.0 [facility] Comment on above: Performed By: #### C BAYRON #### [facility] [address] [place] [address] Dr. Jennifer Almanza MCH 30.8 pg Normal 26.7-34.0 [facility] Comment on above: Performed By: #### C BAYRON #### [facility] [address] [place] [address] Dr. Jennifer Almanza MCHC 36.1 g/dl Critically high 29.9-35.2 [facility] Comment on above: Performed By: #### C BAYRON #### [facility] [address] [place] [address] Dr. Jennifer Almanza MCV 85.3 fL Normal 81.0-99.0 [facility] Comment on above: Performed By: #### C BAYRON #### [facility] [address] [place] [address] Dr. Jennifer Almanza METAMYELOCYTE # Normal [facility] Comment on above: Performed By: #### C BAYRON #### [facility] [address] [place] [address] Dr. Jennifer Almanza METAMYELOCYTE % Normal [facility] Comment on above: Performed By: #### C BCANGEL #### [facility] [address] [place] [address] Dr. Jennifer Almanza MONOM# 0.81 103/ul Critically high 0.30-0.[address] [facility] Comment on above: Performed By: #### C BAYRON #### [facility] [address] [place] [address] Dr. Jennifer Almanza MONOM% 4.0 % Normal 1.7-12.0 [facility] Comment on above: Performed By: #### C BCANGEL #### [facility] [address] [place] [address] Dr. Jennifer Almanza MPV 11.8 fL Normal 9.5-13.5 [facility] Comment on above: Performed By: #### C BAYRON #### [facility] [address] [place] [address] Dr. Jennifer Almanza MYELOCYTE # Normal [facility] Comment on above: Performed By: #### C BAYRON #### [facility] [address] [place] [address] Dr. Jennifer Almanza MYELOCYTE % Normal [facility] Comment on above: Performed By: #### C BAYRON #### [facility] [address] [place] [address] Dr. Jennifer Almanza NRBC Normal [facility] Comment on above: Performed By: #### C BAYRON #### [facility] [address] [place] [address] Dr. Jennifer Almanza PLT 142 103/ul Critically low 150-450 [facility] Comment on above: Performed By: #### C BAYRON #### [facility] [address] [place] [address] Dr. Jennifer Almanza RBC 3.80 106/ul Critically low 4.20-5.40 [facility] Comment on above: Performed By: #### C BAYRON #### [facility] [address] [place] [address] Dr. Jennifer Almanza RDW 12.7 % Normal 11.0-15.0 [facility] Comment on above: Performed By: #### C BCMAN #### [facility] [address] [address] [address] Jennifer Almanza SEG # 17.78 103/ul Critically high 1.40-6.50 [facility] Comment on above: Performed By: #### C BCMAN #### [facility] [address] [address] [address] Jennifer Almanza SEG % 88.0 % Critically high 43.0-75.0 [facility] Comment on above: Performed By: #### C BCMAN #### [facility] [address] [place] [address] Dr. Jennifer Almanza WBC 20.2 103/ul Critically high 4.0-11.[address] [facility] Comment on above: Performed By: #### C BCMAN #### [facility] [address] [place] [address] Dr. Jennifer Almanza CBC AUTO DIFFon 12-04-2022 BASO # 0.0 103/ul Normal 0.0-0.1 [facility] Comment on above: Performed By: #### C BC #### [facility] [address] [place] [address] Dr. Jennifer Almanza Basophils/100 WBC (Bld) 0.2 % Normal 0.2-2.0 [facility] Comment on above: Performed By: #### C BC #### [facility] [address] [place] [address] Dr. Jennifer Almanza EO # 0.0 103/ul Normal 0.0-0.7 [facility] Comment on above: Performed By: #### C BC #### [facility] [address] [place] [address] Dr. Jennifer Almanza Eosinophils/100 WBC (Bld) 0.0 % Critically low 0.9-7.0 [facility] Comment on above: Performed By: #### C BC #### [facility] [address] [place] [address] Dr. Jennifer Almanza Erythrocyte distribution width (RBC) [Ratio] 12.6 % Normal 11.0-15.0 [facility] Comment on above: Performed By: #### C BC #### [facility] [address] [place] [address] Dr. Jennifer Almanza Hematocrit (Bld) [Volume fraction] 40.6 % Normal 36.0-48.0 [facility] Comment on above: Performed By: #### C BC #### [facility] [address] [place] [address] Dr. Jennifer Almanza Hemoglobin (Bld) [Mass/Vol] 14.6 g/dL Normal 12.0-16.0 [facility] Comment on above: Performed By: #### C BC #### [facility] [address] [place] [address] Dr. Jennifer Almanza IG # 0.07 10e3/ul Critically high 0.00-0.03 [facility] Comment on above: Performed By: #### C BC #### [facility] [address] [place] [address] Dr. Jennifer Almanza IG % 0.4 % Normal 0.0-0.5 [facility] Comment on above: Performed By: #### C BC #### [facility] [address] [place] [address] Dr. Jennifer Almanza LYMPH # 0.9 103/ul Critically low 1.2-3.8 [facility] Comment on above: Performed By: #### C BC #### [facility] [address] [place] [address] Dr. Jennifer Almanza Lymphocytes/100 WBC (Bld) 5.0 % Critically low 20.5-60.0 [facility] Comment on above: Performed By: #### C BC #### [facility] [address] [place] [address] Dr. Jennifer Almanza MANUAL DIFF REQ NO Normal [facility] Comment on above: Performed By: #### C BC #### [facility] [address] [place] [address] Dr. Jennifer Almanza MCH (RBC) [Entitic mass] 30.6 pg Normal 26.7-34.0 [facility] Comment on above: Performed By: #### C BC #### [facility] [address] [address] [address] Jennifer Almanza MCHC (RBC) [Mass/Vol] 36.0 g/dL Critically high 29.9-35.2 [facility] Comment on above: Performed By: #### C BC #### [facility] [address] [address] [address] Jennifer Almanza MCV (RBC) [Entitic vol] 85.1 fL Normal 81.0-99.0 [facility] Comment on above: Performed By: #### C BC #### [facility] [address] [address] [address] Jennifer Almanza MONO # 0.9 103/ul Critically high 0.3-0.8 [facility] Comment on above: Performed By: #### C BC #### [facility] [address] [address] [address] Jennifer Almanza Monocytes/100 WBC (Bld) 5.3 % Normal 1.7-12.0 [facility] Comment on above: Performed By: #### C BC #### [facility] [address] [address] [address] Jennifer Almanza NEUT # 15.8 103/ul Critically high 1.4-6.[address] [facility] Comment on above: Performed By: #### C BC #### [facility] [address] [address] [address] Jennifer Almanza Neutrophils/100 WBC (Bld) 89.1 % Critically high 43.0-75.0 [facility] Comment on above: Performed By: #### C BC #### [facility] [address] [address] [address] Jennifer Almanza Platelet mean volume (Bld) [Entitic vol] 12.0 fL Normal 9.5-13.5 [facility] Comment on above: Performed By: #### C BC #### [facility] [address] [address] [address] Jennifer Almanza PLT 177 103/ul Normal 150-450 [facility] Comment on above: Performed By: #### C BC #### [facility] [address] [place] [address] Dr. Jennifer Almanza RBC 4.77 106/ul Normal 4.20-5.40 [facility] Comment on above: Performed By: #### C BC #### [facility] [address] [place] [address] Dr. Jennifer Almanza WBC 17.7 103/ul Critically high 4.0-11.[address] [facility] Comment on above: Performed By: #### C BC #### [facility] [address] [place] [address] Dr. Jennifer Almanza TYPE AND SCREENon 12-04-2022 TYPE AND SCREEN Negative Normal [facility] Comment on above: Performed By: #### T NS #### [facility] [address] [place] [address] Dr. Jennifer Almanza GROUP B STREP CULTUREon 10-30 S. agalactiae Ag Ql (Unsp spec) Culture Observations: NEGATIVE FOR GROUP B STREPTOCOCCUS. Normal [facility] Comment on above: Performed By: #### G BSCX #### [facility] [address] [place] [address] Dr. Jennifer Almanza CBC AUTO DIFFon 09-12-2022 BASO # 0.0 103/ul Normal 0.0-0.1 [facility] Comment on above: Performed By: #### C BC #### [facility] [address] [place] [address] Dr. Jennifer Almanza Basophils/100 WBC (Bld) 0.2 % Normal 0.2-2.0 [facility] Comment on above: Performed By: #### C BC #### [facility] [address] [place] [address] Dr. Jennifer Almanza EO # 0.1 103/ul Normal 0.0-0.7 [facility] Comment on above: Performed By: #### C BC #### [facility] [address] [place] [address] Dr. Jennifer Almanza Eosinophils/100 WBC (Bld) 1.2 % Normal 0.9-7.0 [facility] Comment on above: Performed By: #### C BC #### [facility] [address] [place] [address] Dr. Jennifer Almanza Erythrocyte distribution width (RBC) [Ratio] 11.8 % Normal 11.0-15.0 [facility] Comment on above: Performed By: #### C BC #### [facility] [address] [place] [address] Dr. Jennifer Almanza Hematocrit (Bld) [Volume fraction] 37.8 % Normal 36.0-48.0 [facility] Comment on above: Performed By: #### C BC #### [facility] [address] [place] [address] Dr. Jennifer Almanza Hemoglobin (Bld) [Mass/Vol] 12.9 g/dL Normal 12.0-16.0 [facility] Comment on above: Performed By: #### C BC #### [facility] [address] [place] [address] Dr. Jennifer Almanza IG # 0.03 10e3/ul Normal 0.00-0.03 [facility] Comment on above: Performed By: #### C BC #### [facility] [address] [place] [address] Dr. Jennifer Almanza IG % 0.4 % Normal 0.0-0.5 [facility] Comment on above: Performed By: #### C BC #### [facility] [address] [place] [address] Dr. Jennifer Almanza LYMPH # 1.1 103/ul Critically low 1.2-3.8 [facility] Comment on above: Performed By: #### C BC #### [facility] [address] [place] [address] Dr. Jennifer Almanza Lymphocytes/100 WBC (Bld) 13.6 % Critically low 20.5-60.0 [facility] Comment on above: Performed By: #### C BC #### [facility] [address] [place] [address] Dr. Jennifer Almanza MANUAL DIFF REQ NO Normal [facility] Comment on above: Performed By: #### C BC #### [facility] [address] [address] [address] Jennifer Almanza MCH (RBC) [Entitic mass] 30.5 pg Normal 26.7-34.0 [facility] Comment on above: Performed By: #### C BC #### [facility] [address] [address] [address] Jennifer Almanza MCHC (RBC) [Mass/Vol] 34.1 g/dL Normal 29.9-35.2 [facility] Comment on above: Performed By: #### C BC #### [facility] [address] [address] [address] Jennifer Almanza MCV (RBC) [Entitic vol] 89.4 fL Normal 81.0-99.0 [facility] Comment on above: Performed By: #### C BC #### [facility] [address] [place] [address] Dr. Jennifer Almanza MONO # 0.4 103/ul Normal 0.3-0.8 [facility] Comment on above: Performed By: #### C BC #### [facility] [address] [place] [address] Dr. Jennifer Almanza Monocytes/100 WBC (Bld) 5.0 % Normal 1.7-12.0 [facility] Comment on above: Performed By: #### C BC #### [facility] [address] [place] [address] Dr. Jennifer Almanza NEUT # 6.5 103/ul Normal 1.4-6.5 [facility] Comment on above: Performed By: #### C BC #### [facility] [address] [place] [address] Dr. Jennifer Almanza Neutrophils/100 WBC (Bld) 79.6 % Critically high 43.0-75.0 [facility] Comment on above: Performed By: #### C BC #### [facility] [address] [place] [address] Dr. Jennifer Almanza Platelet mean volume (Bld) [Entitic vol] 9.3 fL Critically low 9.5-13.5 [facility] Comment on above: Performed By: #### C BC #### [facility] [address] [address] [address] Jennifer Almanza PLT 234 103/ul Normal 150-450 [facility] Comment on above: Performed By: #### C BC #### [facility] [address] [address] [address] Jennifer Almanza RBC 4.23 106/ul Normal 4.20-5.40 [facility] Comment on above: Performed By: #### C BC #### [facility] [address] [address] [address] Jennifer Almanza WBC 8.2 103/ul Normal 4.0-11.0 [facility] Comment on above: Performed By: #### C BC #### [facility] [address] [place] [address] Dr. Jennifer Almanza GLUCOSE - 1HRon 09-12-2022 Glucose [Mass/Vol] 92 mg/dL Normal 74-106 [facility] Comment on above: Performed By: #### H CVPCRR #### [facility] [address] [place] [address] Dr. Jennifer Almanza PAP ACOG PANEL 2: 21 to 29on 09-02-2022 . . Normal [facility] Comment on above: Performed By: #### [id number] #### [facility] [address] [place] [address] Dr. Jennifer Almanza Age Gdln ACOG Testing 21-29 [facility] Comment on above: Performed By: #### [id number] #### [facility] [address] [place] [address] Dr. Jennifer Almanza DIAGNOSIS: Comment Normal [facility] Comment on above: Result Comment: NEGA TIVE FOR INTRAEPITHELIAL LESION OR MALIGNANCY. Performed By: #### [id number] #### [facility] [address] [place] [address] Dr. Jennifer Almanza Methodology: Comment Normal [facility] Comment on above: Result Comment: This liquid based ThinPrep(R) pap test was screened with the use of an image guided system. Performed By: #### [id number] #### [facility] [address] [place] [address] Dr. Jennifer Almanza Note: Comment Normal [facility] Comment on above: Result Comment: The Pap smear is a screening test designed to aid in the detection of premalignant and malignant conditions of the uterine cervix. It is not a diagnostic procedure and should not be used as the sole means of detecting cervical cancer. Both false-positive and false-negative reports do occur. . Performed By: #### [id number] #### [facility] [address] [place] [address] Dr. Jennifer Almanza Performed by: Comment Normal [facility] Comment on above: Result Comment: Tan Mitchell, [employer] ([employer]) Performed By: #### [id number] #### [facility] [address] [place] [address] Dr. Jennifer Almanza Reflex Criteria: Comment Normal [facility] Comment on above: Result Comment: The HPV DNA reflex criteria were not met with this specimen result therefore, no HPV testing was performed. . Performed By: #### [id number] #### [facility] [address] [place] [address] Dr. Jennifer Almanza Specimen adequacy: Comment Normal [facility] Comment on above: Result Comment: Sati sfactory for evaluation. No endocervical component is identified. Performed By: #### [id number] #### [facility] [address] [place] [address] Dr. Jennifer Almanza CHLAMYDIA/GONOCOCCUS PEPE (SW AB/URINE/PAPon 08-29-2022 Chlamydia trachomatis, PEPE Negative Normal Negative [facility] Comment on above: Performed By: #### H CVPCRR #### [facility] [address] [place] [address] Dr. Jennifer Almanza Neisseria gonorrhoeae, PEPE Negative Normal Negative [facility] Comment on above: Performed By: #### H CVPCRR #### [facility] [address] [place] [address] Dr. Jennifer Almanza VAGINITIS/VAGINOSIS DNA PROB Gamaliel 08-28-2022 Dominic species Positive Abnormal Negative [facility] Comment on above: Performed By: #### H CVPCRR #### [facility] [address] [address] [address] Jennifer Almanza Gardnerella vaginalis Negative Normal Negative [facility] Comment on above: Performed By: #### H CVPCRR #### [facility] [address] [address] [address] Jennifer Almanza Trichomonas vaginalis Negative Normal Negative [facility] Comment on above: Performed By: #### H CVPCRR #### [facility] [address] [address] [address] Jennifer Almanza US PREG ANATOMY SINGLEon [...] GM ROMERO Date: 2022-07-29 06:06 Normal [facility] HEP B SURFACE ANTIGEN SCREEN on 05-09-2022 HBsAg Screen Negative Normal Negative [facility] Comment on above: Performed By: #### H BSANS #### [facility] [address] [place] [address] Dr. Jennifer Almanza HEPATITIS C VIRUS AB W/ REFL EX QUANTon 05-09-2022 HCV AB <0.1 Normal 0.0-0.9 [facility] Comment on above: Performed By: #### H CVPCRR #### [facility] [address] [address] [address] Jennifer Almanza Interpretation: Comment Normal [facility] Comment on above: Result Comment: Nega tive Not infected with HCV, unless recent infection is suspected or other evidence exists to indicate HCV infection. Performed By: #### H CVPCRR #### [facility] [address] [place] [address] Dr. Jennifer Almanza HIV 1 AND 2 WITH REFLEXon HIV Screen 4th Generation wRfx Non-Reactive Normal Non Reactive [facility] Comment on above: Result Comment: HIV Negative HIV-1/HIV-2 antibodies and HIV-1 p24 antigen were NOT detected. There is no laboratory evidence of HIV infection. Performed By: #### H CVPCRR #### [facility] [address] [place] [address] Dr. Jennifer Almanza RPR QUANTon 05-09-2022 Rapid Plasma Reagin, Quant Non-Reactive Normal NonRea<1:1 [facility] Comment on above: Result Comment: Plea se Note: This test does not meet current guidelines for screening and diagnosis of syphilis. This test is intended for following treatment response in patients being treated for syphilis infection. To screen for syphilis infection, a reflex cascade that includes both RPR and a treponema-specific assay should be utilized, such as Treponema pallidum (Syphilis) Screening [place] ([id number]) or Rapid Plasma Reagin (RPR) Test With Reflex to Quantitative RPR and Confirmatory Treponema pallidum Antibodies (731264). Performed By: #### R PRQ #### [facility] [address] [place] [address] Dr. Jennifer Almanza RUBELLA AB IGGon 05-09-2022 Rubella Antibodies, IgG 4.48 index Normal Immune >0.99 [facility] Comment on above: Result Comment: Non- immune <0.90 Equivocal 0.90 - 0.99 Immune >0.99 Performed By: #### H CVPCRR #### [facility] [address] [place] [address] Dr. Jennifer Almanza CBC AUTO DIFFon 05-08-2022 BASO # 0.0 103/ul Normal 0.0-0.1 [facility] Comment on above: Performed By: #### C BC #### [facility] [address] [place] [address] Dr. Jennifer Almanza Basophils/100 WBC (Bld) 0.5 % Normal 0.2-2.0 [facility] Comment on above: Performed By: #### C BC #### [facility] [address] [place] [address] Dr. Jennifer Almanza EO # 0.1 103/ul Normal 0.0-0.7 [facility] Comment on above: Performed By: #### C BC #### [facility] [address] [place] [address] Dr. Jennifer Almanza Eosinophils/100 WBC (Bld) 1.7 % Normal 0.9-7.0 [facility] Comment on above: Performed By: #### C BC #### [facility] [address] [place] [address] Dr. Jennifer Almanza Erythrocyte distribution width (RBC) [Ratio] 11.9 % Normal 11.0-15.0 [facility] Comment on above: Performed By: #### C BC #### [facility] [address] [place] [address] Dr. Jennifer Almanza Hematocrit (Bld) [Volume fraction] 38.4 % Normal 36.0-48.0 [facility] Comment on above: Performed By: #### C BC #### [facility] [address] [place] [address] Dr. Jennifer Almanza Hemoglobin (Bld) [Mass/Vol] 13.3 g/dL Normal 12.0-16.0 [facility] Comment on above: Performed By: #### C BC #### [facility] [address] [place] [address] Dr. Jennifer Almanza IG # 0.01 10e3/ul Normal 0.00-0.03 [facility] Comment on above: Performed By: #### C BC #### [facility] [address] [place] [address] Dr. Jennifer Almanza IG % 0.2 % Normal 0.0-0.5 [facility] Comment on above: Performed By: #### C BC #### [facility] [address] [place] [address] Dr. Jennifer Almanza LYMPH # 1.6 103/ul Normal 1.2-3.8 [facility] Comment on above: Performed By: #### C BC #### [facility] [address] [place] [address] Dr. Jennifer Almanza Lymphocytes/100 WBC (Bld) 25.8 % Normal 20.5-60.0 [facility] Comment on above: Performed By: #### C BC #### [facility] [address] [place] [address] Dr. Jennifer Almanza MANUAL DIFF REQ NO Normal [facility] Comment on above: Performed By: #### C BC #### [facility] [address] [place] [address] Dr. Jennifer Almanza MCH (RBC) [Entitic mass] 30.8 pg Normal 26.7-34.0 [facility] Comment on above: Performed By: #### C BC #### [facility] [address] [place] [address] Dr. Jennifer Almanza MCHC (RBC) [Mass/Vol] 34.6 g/dL Normal 29.9-35.2 [facility] Comment on above: Performed By: #### C BC #### [facility] [address] [place] [address] Dr. Jennifer Almanza MCV (RBC) [Entitic vol] 88.9 fL Normal 81.0-99.0 [facility] Comment on above: Performed By: #### C BC #### [facility] [address] [address] [address] Jennifer Almanza MONO # 0.5 103/ul Normal 0.3-0.8 [facility] Comment on above: Performed By: #### C BC #### [facility] [address] [address] [address] Jennifer Almanza Monocytes/100 WBC (Bld) 8.1 % Normal 1.7-12.0 [facility] Comment on above: Performed By: #### C BC #### [facility] [address] [address] [address] Jennifer Almanza NEUT # 4.0 103/ul Normal 1.4-6.5 [facility] Comment on above: Performed By: #### C BC #### [facility] [address] [place] [address] Dr. Jennifer Almanza Neutrophils/100 WBC (Bld) 63.7 % Normal 43.0-75.0 [facility] Comment on above: Performed By: #### C BC #### [facility] [address] [place] [address] Dr. Jennifer Almanza Platelet mean volume (Bld) [Entitic vol] 9.4 fL Critically low 9.5-13.5 [facility] Comment on above: Performed By: #### C BC #### [facility] [address] [place] [address] Dr. Jennifer Almanza PLT 217 103/ul Normal 150-450 [facility] Comment on above: Performed By: #### C BC #### [facility] [address] [place] [address] Dr. Jennifer Almanza RBC 4.32 106/ul Normal 4.20-5.40 [facility] Comment on above: Performed By: #### C BC #### [facility] [address] [place] [address] Dr. Jennifer Almanza WBC 6.3 103/ul Normal 4.0-11.0 [facility] Comment on above: Performed By: #### C BC #### [facility] [address] [address] [address] Jennifer Almanza CULTURE URINEon 05-08-2022 CULTURE URINE Culture Observations : LIGHT GROWTH OF MIXED GENITAL MICHAEL. NO POTENTIAL PATHOGENS SEEN. Normal [facility] Comment on above: Performed By: #### H CVPCRR #### [facility] [address] [place] [address] Dr. Jennifer Almanza GLYCOHEMOGLOBIN A1Con 2021 ADA RECOMMENDATION SEE BELOW Normal The [facility] Comment on above: Result Comment: ADA RECOMMENDED LIMIT 4.0 - 6.0 ADA THERAPEUTIC TARGET < 7.0 ACTION SUGGESTED > 7.0 Performed By: #### H CVPCRR #### [facility] [address] [place] [address] Dr. Jennifer Almanza Glucose [Mass/Vol] 80 mg/dL Normal [facility] Comment on above: Performed By: #### H CVPCRR #### [facility] [address] [place] [address] Dr. Jennifer Almanza HbA1c (Bld) [Mass fraction] 4.4 % Critically low 4.5-6.2 [facility] Comment on above: Performed By: #### H CVPCRR #### [facility] [address] [place] [address] Dr. Jennifer Almanza TYPE AND SCREENon 05-08-2022 TYPE AND SCREEN Negative Normal [facility] Comment on above: Performed By: #### H CVPCRR #### [facility] [address] [place] [address] Dr. Jennifer Almanza US PREG TVon 05-02-2022 [...] by: GM ROMERO Date: 2022-05-02 16:03 Normal [facility] Body fluid albumin measureme nt (mass/volume)Ordered By: Alisia Burciaga on 03-10-2022 Albumin (Body fld) [Mass/Vol] 4.5 g/dL 3.2-5.5 [facility] Creatinine and Glomerular fi ltration rate.predicted panel (S/P/Bld)Ordered By: Alisia Burciaga on 03-10-2022 Creatinine [Mass/Vol] 0.64 mg/dL 0.44-1.03 [facility] Estimated glomerular filtrat ion rate (GFR) non- AmericanOrdered By: Alisia Burciaga on 03-10-2022 GFR/1.73 sq M.predicted among non-blacks MDRD (S/P/Bld) [Vol rate/Area] > 60 mL/Min [facility] No Panel InformationOrdered By: Alisia Burciaga on 03-10-2022 25-Hydroxy Vitamin D Total 28.9 ng/mL 30-100 [facility] Comment on above: VITAMIN D STATUS 25( OH)VITAMIN D RANGE (ng/mL) Deficient <20 Insufficient 20 to <30 Sufficient 30 to 100 Reference: Vanessa MF,Nydia NC, Marisol HESS, et al. Evaluation,treatment, and prevention of vitamin D deficiency; an Endocrine Society clinical practice guideline. JCEM. 2010; 96(7):1911-30. Estimated GFR () > 60 mL/Min [facility] Comment on above: GFR estimated refere nce range: According to KDOQI guidelines, <60 ml/min/1.73m2 is sufficient to diagnose a patient with chronic kidney disease. Pharmacy Creatinine Clearance (Chem N/A [facility] Parathyroid Hormone Intacton 03-10-2022 Parathyroid Hormone Intact 50.9 pg/mL Normal 12-88 [facility] Comment on above: Result Comment: PERF ORMED BY: [facility] [address] [place] [address] PATHOLOGIST GAS FITTER HELPER TARAS MA M.D. Performed By: #### R ENAL, PTH, [id number] #### [facility] [address] Phosphate [Mass/volume] in S celsa or PlasmaOrdered By: Alisia Burciaga on 03-10-2022 Phosphate [Mass/Vol] 3.3 mg/dL 2.5-4.6 [facility] Renal Function Panelon 03-10 Albumin [Mass/Vol] 4.5 g/dL Normal 3.2-5.5 [facility] Comment on above: Performed By: #### R ENAL, PTH, [id number] #### [address] Calcium [Mass/Vol] 9.9 mg/dL Normal 8.2-10.2 [facility] Comment on above: Performed By: #### R ENAL, PTH, [id number] #### [address] Chloride [Moles/Vol] 102 mmol/L Normal 95-114 [facility] Comment on above: Performed By: #### R ENAL, PTH, [id number] #### [address] CO2 [Moles/Vol] 25.2 mmol/L Normal 22.0-30.0 [facility] Comment on above: Performed By: #### R ENAL, PTH, [id number] #### [address] Creatinine [Mass/Vol] 0.64 mg/dL Normal 0.44-1.03 [facility] Comment on above: Performed By: #### R ENAL, PTH, [id number] #### [facility] [address] [place] [address] [place] Estimated GFR ( Rachel > 60 Normal [facility] Comment on above: Result Comment: GFR estimated reference range: According to KDOQI guidelines, <60 ml/min/1.73m2 is sufficient to diagnose a patient with chronic kidney disease. Performed By: #### R ENAL, PTH, [id number] #### [facility] [address] Estimated GFR (Non- Am > 60 Normal [facility] Comment on above: Performed By: #### R ENAL, PTH, [id number] #### [facility] [address] Glucose [Mass/Vol] 88 mg/dL Normal 70-100 [facility] Comment on above: Result Comment: [facility] Glucose Reference Range is dependent on time and content of last meal. Glucose of more than 200 mg/dL in a nonstressed, ambulatory subject supports the diagnosis of Diabetes Mellitus. ADA recommended reference range Performed By: #### R ENAL, PTH, [id number] #### [facility] [address] Phosphate [Mass/Vol] 3.3 mg/dL Normal 2.5-4.6 [facility] Comment on above: Performed By: #### R ENAL, PTH, [id number] #### [address] Potassium [Moles/Vol] 4.6 mmol/L Normal 3.5-5.1 [facility] Comment on above: Performed By: #### R ENAL, PTH, [id number] #### [address] Sodium [Moles/Vol] 137 mmol/L Normal 136-146 [facility] Comment on above: Performed By: #### R ENAL, PTH, [id number] #### [facility] [address] [place] [address] Urea nitrogen [Mass/Vol] 11 mg/dL Normal 9-23 [facility] Comment on above: Performed By: #### R ENAL, PTH, [id number] #### [facility] [address] [place] [address] Serum or plasma calcium robson urement (mass/volume)Ordered By: Alisia Burciaga on 03-10-2022 Calcium [Mass/Vol] 9.9 mg/dL 8.2-10.2 [facility] Serum or plasma chloride kathe surement (moles/volume)Ordered By: Alisia Burciaga on 03-10-2022 Chloride [Moles/Vol] 102 mmol/L 95-114 [facility] Serum or plasma glucose robson urement (mass/volume)Ordered By: Alisia Burciaga on 03-10-2022 Glucose [Mass/Vol] 88 mg/dL 70-100 [facility] Comment on above: ADA recommended refe rence range Random Glucose Reference Range is dependent on time and content of last meal. Glucose of more than 200 mg/dL in a nonstressed, ambulatory subject supports the diagnosis of Diabetes Mellitus. Serum or plasma intact parat hyroid hormone measurement (mass/volume)Ordered By: Alisia Burciaga on 03-10-2022 Parathyrin.intact [Mass/Vol] 50.9 pg/mL [facility] Serum or plasma potassium me asurement (moles/volume)Ordered By: Alisia Burciaga on 03-10-2022 Potassium [Moles/Vol] 4.6 mmol/L 3.5-5.1 [facility] Serum or plasma sodium measu rement (moles/volume)Ordered By: Alisia Burciaga on 03-10-2022 Sodium [Moles/Vol] 137 mmol/L 136-146 [facility] Serum or plasma total carbon dioxide measurement (moles/volume)Ordered By: Alisia Burciaga on 03-10-2022 CO2 [Moles/Vol] 25.2 mmol/L 22.0-30.0 [facility] Serum or plasma urea nitroge n measurement (mass/volume)Ordered By: Alisia Burciaga on 03-10-2022 Urea nitrogen [Mass/Vol] 11 mg/dL 9-23 [facility] Vitamin D 25 Hydroxy Totalon 03-10-2022 Vitamin D 25 Hydroxy Total 28.9 ng/mL Low 30-100 [facility] Comment on above: Result Comment: MIGDALIA MIN D STATUS 25(OH)VITAMIN D RANGE (ng/mL) Deficient <20 Insufficient 20 to <30 Sufficient 30 to 100 Reference: Vanessa MF,Nydia SIU, Marisol HESS, et al. Evaluation,treatment, and prevention of vitamin D deficiency; an Endocrine Society clinical practice guideline. JCEM. 2010; 96(7):1911-30. Performed By: #### R ENAL, PTH, [id number] #### [facility] [address] [id number] [facility] HCG, Beta Quantitativeon HCG.beta subunit Qn m[IU]/mL [facility]-SAFETY ASSISTANT Nurse Midwifery-Christiano Holloway DO Work Phone: Comment [...] HCG measurement is performed using the Lida Pley Access Immunoassay which detects intact HCG and free beta HCG subunit. This test is not indicated for use as a tumor marker. HCG testing is performed using a different test methodology at [facility] than other [facility]. Direct result comparison should only be made within the same method. REF VALUESNON FEMALE <5MALES <5 HCG,BETA-QUANTITATIVEon 05-2 0-2021 HCG,BETA-QUANTITATIVE <2 Normal [facility] Comment on above: Result Comment: Low- level [...] performed using a different test methodology at [facility] than other [facility]. Direct result comparison should only be made within the same method. REF VALUES NON FEMALE <5 MALES <5 Performed By: #### H CGQU #### [facility] [address] [place], [place] [id number] PHQ-2 [facility] 02-14-2022 Adult depression screening assessment No JACOBO hopkins [id number] M DO Work Phone: Fall risk assessment a) No falls within the last year JACOBO hopkins [address]5866 M DO Work Phone: Last menstrual period start date [id number] JACOBO hopkins [address]35[address] M DO Work Phone: Vital Signs Date Time Vital Sign Value Performing Clinician Facility 01-03-2025 11:39-0400 Body mass index (BMI) [Ratio] 28.62 kg/m2 Luan Pipe DO Work Phone: [facility] 01-03-2025 11:39-0400 Body weight 70.99 kg Luan Pipe DO Work Phone: [facility] 01-03-2025 11:39-0400 Diastolic blood pressure 72 mm[Hg] Luan Pipe DO Work Phone: [facility] 01-03-2025 11:39-0400 Systolic blood pressure 104 mm[Hg] Luan Pipe DO Work Phone: [facility] 12-27-2024 09:12-0400 Body mass index (BMI) [Ratio] 28.9 kg/m2 Luan Pipe DO Work Phone: [facility] 12-27-2024 09:12-0400 Body weight 71.67 kg Luan Pipe DO Work Phone: [facility] 12-27-2024 09:12-0400 Diastolic blood pressure 72 mm[Hg] Luan Pipe DO Work Phone: [facility] 12-27-2024 09:12-0400 Systolic blood pressure 120 mm[Hg] Luan Pipe DO Work Phone: [facility] 12-13-2024 10:54-0400 Body mass index (BMI) [Ratio] 28.79 kg/m2 Luan Pipe DO Work Phone: [facility] 12-13-2024 10:54-0400 Body weight 71.4 kg Luan Pipe DO Work Phone: [facility] 12-13-2024 10:54-0400 Diastolic blood pressure 62 mm[Hg] Luan Pipe DO Work Phone: [facility] 12-13-2024 10:54-0400 Systolic blood pressure 108 mm[Hg] Luan Pipe DO Work Phone: [facility] 11-28-2024 10:09-0500 Body mass index (BMI) [Ratio] 28.19 kg/m2 Ana ARMENTA Work Phone: [facility] 11-28-2024 10:09-0500 Body weight 69.91 kg Ana ARMENTA Work Phone: [facility] 11-28-2024 10:09-0500 Diastolic blood pressure 64 mm[Hg] Ana Polo PA Work Phone: [facility] 11-28-2024 10:09-0500 Systolic blood pressure 110 mm[Hg] Ana Polo PA Work Phone: [facility] 11-14-2024 09:54-0500 Body mass index (BMI) [Ratio] 28.35 kg/m2 Luan Pipe DO Work Phone: [facility] 11-14-2024 09:54-0500 Body weight 70.31 kg Luan Pipe DO Work Phone: [facility] 11-14-2024 09:54-0500 Diastolic blood pressure 64 mm[Hg] Luan Pipe DO Work Phone: [facility] 11-14-2024 09:54-0500 Systolic blood pressure 110 mm[Hg] Luan Pipe DO Work Phone: [facility] 10-31-2024 09:04-0500 Body mass index (BMI) [Ratio] 28.13 kg/m2 Luan Pipe DO Work Phone: [facility] 10-31-2024 09:04-0500 Body weight 69.76 kg Luan Pipe DO Work Phone: [facility] 10-31-2024 09:04-0500 Diastolic blood pressure 64 mm[Hg] Luan Pipe DO Work Phone: [facility] 10-31-2024 09:04-0500 Systolic blood pressure 112 mm[Hg] Luan Pipe DO Work Phone: [facility] 10-03-2024 11:52-0500 Body mass index (BMI) [Ratio] 26.89 kg/m2 Ana Phillip PA Work Phone: [facility] 10-03-2024 11:52-0500 Body weight 66.68 kg Ana Phillip PA Work Phone: [facility] 10-03-2024 11:52-0500 Diastolic blood pressure 60 mm[Hg] [facility] PA Work Phone: [facility] 10-03-2024 11:52-0500 Systolic blood pressure 110 mm[Hg] Ana [facility] PA Work Phone: [facility] 08-31-2024 16:30-0500 Body mass index (BMI) [Ratio] 27.33 kg/m2 Luan Pipe DO Work Phone: [facility] 08-31-2024 16:30-0500 Body weight 67.77 kg Luan Pipe DO Work Phone: [facility] 08-31-2024 16:30-0500 Diastolic blood pressure 60 mm[Hg] Luan Pipe DO Work Phone: [facility] 08-31-2024 16:30-0500 Systolic blood pressure 118 mm[Hg] Luan Pipe DO Work Phone: [facility] 07-29-2024 09:27-0400 Body mass index (BMI) [Ratio] 26.34 kg/m2 [facility] Nurse [facility] 07-29-2024 09:27-0400 Body weight 65.32 kg [facility] Nurse [facility] 07-29-2024 09:27-0400 Diastolic blood pressure 68 mm[Hg] [facility] Nurse [facility] 07-29-2024 09:27-0400 Systolic blood pressure 110 mm[Hg] [facility] Nurse [facility] 03-23-2022 11:05-0400 Body height 157.48 cm Sarah Dominguez Other [email or web address] Other 03-23-2022 11:05-0400 Body mass index (BMI) [Ratio] 24.51 kg/m2 Sarah Dominguez Other [email or web address] Other 03-23-2022 11:05-0400 Body weight 60.78 kg Sarah Dominguez Other [email or web address] Other 03-23-2022 11:05-0400 Diastolic blood pressure 85 mm[Hg] Sarah Dominguez Other [email or web address] Other 03-23-2022 11:05-0400 Systolic blood pressure 129 mm[Hg] Sarah Dominguez Other [email or web address] Other 02-14-2022 14:22-0400 Body height 157.48 cm Sailaja Tiffanie NicoleJammit Work Phone: [facility] [id number] M DO Work Phone: 02-14-2022 14:22-0400 Body mass index (BMI) [Ratio] 24.55 kg/m2 Sailaja Jo readeo Work Phone: [facility] [address] M DO Work Phone: 02-14-2022 14:22-0400 Body surface area Derived from formula 1.61 m2 Sailaja Moreno readeo Work Phone: [facility] [address] M DO Work Phone: 02-14-2022 14:22-0400 Body weight 60.9 kg Sailaja Frenchmesfin Work Phone: [facility] [address] M DO Work Phone: 02-14-2022 14:22-0400 Diastolic blood pressure 62 mm[Hg] Sailaja Frenchmesfin Work Phone: [facility] [address] M DO Work Phone: 02-14-2022 14:22-0400 Systolic blood pressure 126 mm[Hg] Sailaja Mcmillanayde Work Phone: [facility] [address] M DO Work Phone: 02-14-2022 14:22-0400 0 1 Sailaja Ren Work Phone: [facility] [address] M DO Work Phone: Comment on above: [employer] Encounters Encounter Date Encounter Type Care Provider Facility Start: 01-03-2025 End: 01-03-2025 Bamboo flowsheet Luna Pipe DO Work Phone: [facility] Start: 01-03-2025 End: 01-03-2025 Bamboo flowsheet Luan Pipe DO Work Phone: [facility] Start: 01-03-2025 End: 01-03-2025 ambulatory LUAN PIPE Not Available Start: 01-03-2025 End: 01-03-2025 Office outpatient visit 15 minutes Luan Pipe DO Work Phone: [facility] Comment on above: Third trimester preg sharon; 38 weeks gestation of Start: 12-27-2024 End: 12-27-2024 Bamboo flowsheet Luan Pipe DO Work Phone: [facility] Start: 12-27-2024 End: 12-27-2024 Bamboo flowsheet Luan Pipe DO Work Phone: [facility] Start: 12-27-2024 End: 12-27-2024 Office outpatient visit 15 minutes Luan Pipe DO Work Phone: [facility] Comment on above: 37 weeks gestation o f ; Third trimester Start: 12-27-2024 End: 12-27-2024 ambulatory LUAN PIPE Not Available Start: 12-20-2024 End: 12-24-2024 Clinisync Result Encounter Ana ARMENTA Work Phone: [facility] Unsolicited Start: 12-20-2024 End: 12-24-2024 Clinisync Result Encounter Ana ARMENTA Work Phone: [facility] Unsolicited Start: 12-20-2024 End: 12-20-2024 ambulatory ANA POLO Not Available Start: 12-13-2024 End: 12-13-2024 Office outpatient visit [...] Start: 10-03-2024 End: 10-03-2024 ambulatory Luan Pipe [facility] Work Phone: Start: 10-03-2024 End: 10-03-2024 Departed Referred Luan Pipe DO Work Phone: [facility] Start: 10-03-2024 [...] Start: 11-16-2023 End: 11-16-2023 ambulatory Luan Pipe Facility:[facility] Start: 11-16-2023 End: 11-16-[address] [facility] Work Phone: Start: 11-16-2023 End: 11-16-2023 Departed Referred Luan Betancur Work Phone: [facility] Start: 12-08-2022 ambulatory TOMA REN Facil ity:[facility] Start: 12-04-2022 End: 12-06-2022 Evaluation and management of inpatient DR SLICK MANDUJANO . Facility:[facility] Start: 11-20-2022 End: 11-20-[address] LUAN BETANCUR . Facility:[facility] Start: 09-12-2022 End: 09-13-[address] LUAN BETANCUR . Facility:[facility] Start: 08-26-2022 End: 08-26-[address] LUAN BETANCUR . Facility:[facility] Start: 07-28-2022 End: 07-29-2022 ambulatory TOMA MCMILLANDORCASMesfin Facility:[facility] Start: 05-08-2022 End: 05-09-2022 ambulatory ACCOUNT DEVELOPMENT SPECIALIST SAILAJA REN Facility:[facility] Start: 05-03-2022 ambulatory TOMA REN Facil ity:[facility] Start: 05-02-2022 End: 05-03-[address] LUAN BETANCUR . Facility:[facility] Start: 03-23-2022 End: 03-23-2022 ambulatory Sarah Dominguez Other [email or web address] Other Start: 03-23-2022 Office outpatient ne w 20 minutes Sarah Dominguez [facility] Start: 03-10-2022 End: 03-10-[address] [facility] Start: 02-26-[address] SLICK MANDUJANO . Fa cility:[facility] Start: 02-15-2022 Chart Update Sailaja jones Work Phone: [facility] Nurse Midwifery-[facility] Holloway DO Work Phone: Start: 02-14-2022 Office outpatient ne w 30 minutes Sailaja Ren Work Phone: [facility] [id number] M DO Work Phone: Procedures Date Procedure Procedure Detail Performing Clinician Start: 01-03-2025 Urnls dip stick/tabl et rgnt non-auto w/o micrscp Luan Pipe DO Work Phone: Start: 12-27-2024 Urnls dip stick/tabl et rgnt non-auto w/o micrscp Luan Pipe DO Work Phone: Start: 12-20-2024 ALL MISCELLANEOUS TEST Ana ARMENTA Work Phone: Start: 12-13-2024 Urnls dip stick/tabl et rgnt [...] Treatment Date Care Activity Detail Author Start: 05-29-2025 Influenza vaccination Influenz a Vaccine (Season Ended) [facility] Start: 01-03-2025 End: 01-03-2025 Patient encounter procedure 01/03/2025 11:30 AM EDT Routine [facility] [address] [place] [id number] Luan Betancur, DO [address] [place] [address] [facility] Start: 12-27-2024 End: 12-27-2024 Patient encounter procedure [facility] Comment on above: Arrived Start: 12-20-2024 End: 12-20-2024 Patient encounter procedure 12/20/2024 8:30 AM EDT Routine [facility] [address] [facility] [place] [id number] Ana Polo PA [address] [place] [address] [facility] Start: 12-13-2024 End: 12-13-2024 Patient encounter procedure 12/13/2024 10:30 AM EDT Routine [facility] [address] [place] [id number] Luan Betancur, DO [address] [place] [address] [facility] Start: 11-28-2024 End: 11-28-2024 Patient encounter procedure [facility] Comment on above: Arrived Start: 11-14-2024 End: 11-14-2025 CBC panel - Blood by Automated count CBC Lab Routine Diabetes mellitus screening Expected: 11/14/2024 (Approximate), Expires: 11/14/2025 [facility] Work Phone: Comment on above: Expected: 11/14/2024 (Approximate), Expires: 11/14/2025 Start: 11-14-2024 End: 11-14-2025 Measurement of glucose 1 hour after glucose challenge for glucose tolerance test Glucose tolerance, 1 hour Lab Routine Diabetes mellitus screening Expected: 11/14/2024 (Approximate), Expires: 11/14/2025 [facility] Comment on above: Expected: 11/14/2024 (Approximate), Expires: 11/14/2025 Start: 11-14-2024 End: 11-14-2024 Patient encounter procedure 11/14/2024 9:30 AM EST Routine [facility] [address] [id number] Luan Betancur, [address] [place] [address] [facility] Start: 11-14-2024 End: 11-14-2024 Professional / ancillary services management 11/14/2024 9:00 AM EST Ancillary Procedure [facility] [address] [phone] [facility] Start: 10-31-2024 End: 10-31-2025 US for US OB follow up transabdominal approach Imaging Routine size inconsistent with dates Expected: 10/31/2024, Expires: 10/31/2025 [facility] Comment on above: Expected: 10/31/2024 , Expires: 10/31/2025 Start: 10-31-2024 End: 10-31-2024 Patient encounter procedure [facility] Comment on above: Arrived Start: 10-03-2024 Bacteria identified in Urine by Culture Urine Culture [facility] Start: 10-03-2024 Urine culture [facility] Start: 10-03-2024 End: 10-03-2024 Patient encounter procedure 10/03/2024 11:30 AM EST Routine [facility] [address] [place] [phone] Ana Polo PA [address] [place] [address] [facility] Start: 10-03-2024 End: 10-03-2024 Professional / ancillary services management 10/03/2024 10:30 AM EST Ancillary Procedure [facility] [address] [place] [place] [phone] [facility] Start: 08-31-2024 End: 08-31-2024 Patient encounter procedure [facility] Comment on above: Arrived Start: 08-31-2024 End: 08-31-2024 Professional / ancillary services management 08/31/2024 2:30 PM EST Ancillary Procedure [facility] [address] [place] [place] [phone] [facility] Start: 08-31-2024 End: 11-29-2024 Alpha fetoprotein, maternal Alpha fetoprotein, maternal Lab Routine 20 weeks gestation of Expected: 08/31/2024 (Approximate), Expires: 11/29/2024 [facility] Work Phone: Comment on above: Expected: 08/31/2024 (Approximate), Expires: 11/29/2024 Start: 08-31-2024 End: 08-31-2025 US for US OB PLACENTA W US OB TRANSVAGINAL Imaging Routine Low-lying placenta Expected: 08/31/2024 (Approximate), Expires: 08/31/2025 [facility] Comment on above: Expected: 08/31/2024 [...] Expected: 07/29/2024 (Approximate), Expires: 07/29/2025 [facility] Work Phone: Comment on above: [...] Missed menses Expected: 07/29/2024 (Approximate), Expires: 07/29/2025 [facility] Comment on above: Expected: 07/29/2024 (Approximate), Expires: 07/29/2025 Start: 05-29-2024 Influenza vaccination Influenza Vacc ine (#1) [facility] Bacteria identified in Urine by Culture Urine culture Microbiology Routine Missed menses Ordered: 07/29/2024 [facility] Comment on above: Ordered: 07/29/2024 CBC W Auto Different ial panel - Blood CBC and differential Lab Routine Missed menses , unspecified gestational age Ordered: 07/29/2024 [facility] Comment on above: Ordered: 07/29/2024 CHLAMYDIA TRACHOMATI S (GENITO/STI) CHLAMYDIA TRACHOMATIS (GENITO/STI) Lab Routine STD exposure Ordered: 10/31/2024 [facility] Comment on above: Ordered: 10/31/2024 Hemoglobin A1c/Hemoglobin.total in Blood Hemoglobin A1c Lab Routine Missed menses , unspecified gestational age Ordered: 07/29/2024 [facility] Comment on above: Ordered: 07/29/2024 Hepatitis B virus surface Ag [Presence] in Serum or Plasma by Immunoassay Hepatitis B surface antigen Lab Routine Missed menses , unspecified gestational age Ordered: 07/29/2024 [facility] Comment on above: Ordered: 07/29/2024 Hepatitis C virus Ab [Presence] in Serum or Plasma by Immunoassay Hepatitis C antibody Lab Routine Missed menses , unspecified gestational age Ordered: 07/29/2024 [facility] Comment on above: Ordered: 07/29/2024 HIV-1/HIV-2 antigen/antibody combination immunoassay HIV-1 and HIV-2 antibodies Lab Routine Missed menses , unspecified gestational age Ordered: 07/29/2024 [facility] Comment on above: Ordered: 07/29/2024 Neisseria gonorrhoea e DNA [Presence] in Unspecified specimen by PEPE with probe detection Neisseria gonorrhea DNA probe, direct Lab Routine STD exposure Ordered: 10/31/2024 [facility] Comment on above: Ordered: 10/31/2024 Reagin Ab [Presence] in Serum by RPR RPR Lab Routine Missed menses , unspecified gestational age Ordered: 07/29/2024 [facility] Comment on above: Ordered: 07/29/2024 Rubella antibody, IgG Rubella an tibody, IgG Lab Routine Missed menses , unspecified gestational age Ordered: 07/29/2024 [facility] Comment on above: Ordered: 07/29/2024 SURESWAB(R) ADVANCED VAGINITIS PLUS, TMA SURESWAB(R) ADVANCED VAGINITIS PLUS, TMA Pathology and Cytology Routine Vaginal discharge Ordered: 10/31/2024 [facility] Work Phone: Comment on above: Ordered: 10/31/2024 Payers Date Payer Category Payer Medicaid [id number] 2024 Medicaid [id number] 1996 Unknown [id number] 2.16.84 0.1.247405.3.579.2.593 1996 Unknown [id number] 2.16.84 0.1.255653.3.579.2.593 1996 Unknown [id number] 2.16.84 0.1.654351.3.579.2.593 1996 Unknown [id number] 2.16.84 0.1.375556.3.579.2.593 1996 Unknown [id number] 2.16.84 0.1.659847.3.579.2.593 1996 Unknown [id number] 2.16.84 0.1.602141.3.579.2.593 1996 Unknown [id number] 2.16.84 0.1.765167.3.579.2.593 1996 Unknown [id number] 2.16.84 0.1.501202.3.579.2.593 1996 Unknown [id number] 2.16.84 0.1.472968.3.579.2.593 1996 Unknown [id number] 2.16.84 0.1.749387.3.579.2.593 1996 Unknown [id number] 2.16.84 0.1.494520.3.579.2.1259 1996 Unknown [id number] 2.16.84 0.1.552499.3.579.2.1259 1996 Unknown [id number] 2.16.84 0.1.055305.3.579.2.1259 1996 Unknown [id number] 2.16.84 0.1.155364.3.579.2.1259 1996 Unknown [id number] 2.16.84 0.1.208030.3.579.2.1259 1996 Unknown [id number] 2.16.84 0.1.570250.3.579.2.1259 1996 Unknown [id number] 2.16.84 0.1.590294.3.579.2.1259 1996 Unknown [id number] 2.16.84 0.1.648962.3.579.2.1259 1996 Unknown [id number] 2.16.84 0.1.940491.3.579.2.1259 1996 Unknown [id number] 2.16.84 0.1.356855.3.579.2.1259 1996 Unknown [id number] 2.16.84 0.1.273740.3.579.2.1259 1996 Unknown [id number] 2.16.84 0.1.800928.3.579.2.1259 1959 Self-pay [id number] 1958 Unknown [id number] Unknown ANTHEM Unknown [id number] 2.16.8 40.1.414203.3.579.2.531 Social History Date Type Detail Facility Tobacco smoking status NHIS Unknown if ever smoked [facility] Work Phone: Start: 1995 Sex Assigned At Female F [facility] Sex Assigned At [email or web address] Other Tobacco smoking status NHIS Tobacco smoking consumption unknown [facility] Start: 1995 Sex assigned at Not on file [facility] Start: 04-25-2024 [facility] Start: 09-10-2018 Tobacco smoking status NHIS Never smoked tobacco (finding) [facility] Start: 10-05-2024 Sex Female (finding) [facility] Clinical Notes 02-14-2022 to 01-03-2025 Tatiana Angel LPN - 01/03/2025 11:30 AM Rosalinda Angel LPN - 12/27/2024 9:10 AM MARILINTatiana Angel, AJIT - 12/13/2024 10:30 AM GEOVANY Fiore - 11/28/2024 9:50 AM EST Note Date & Type Note Facility 01-03-2025 History of Presen t illness Narrative Reason [...] nursing note reviewed. Exam conducted with a congressional aide present. Vitals: Estimated body mass index is 28.62 kg/m as calculated from the following: Height as of 01/15/23: 5' 2 . Weight as of this encounter: 156 lb 8 oz. BP: 104/72 No LMP recorded (lmp unknown). Patient is . ASSESSMENT & PLAN ICD-10-CM 1. Third trimester Z34.93 POCT urinalysis dipstick manually resulted 2. 38 weeks gestation of Z3A.38 Return OB: Patient presents today for a routine obstetrics appointment. Patient is currently 38w1d . Patient states she is doing well [...] Luan Betancur DO documented in this encounter [facility] 12-27-2024 History of Presen t illness Narrative Reason [...] nursing note reviewed. Exam conducted with a congressional aide present. Vitals: Estimated body mass index is 28.9 kg/m as calculated from the following: Height as of 01/15/23: 5' 2 . Weight as of this encounter: 158 lb. BP: 120/72 No LMP recorded (lmp unknown). Patient is . ASSESSMENT & PLAN ICD-10-CM 1. 37 weeks gestation of Z3A.37 POCT urinalysis dipstick manually resulted 2. Third trimester Z34.93 POCT urinalysis dipstick manually resulted Return OB: Patient presents today for a routine obstetrics appointment. Patient is currently 37w1d . Patient states she is doing well but has complaints of being tired due to current . Patient has verbalizes frequent movement. labor precautions was discussed/given and patient was instructed to perform kick counts three times a day. Pt scheduled for section on 01/10/25. Orders Placed This Encounter Procedures POCT urinalysis dipstick manually resulted Follow Up: Patient is to return to office in 1 week for routine OB appointment. Documented by Tatiana Angel LPN on behalf of: Luan Betancur DO documented in this encounter [facility] 12-13-2024 History of Presen t illness Narrative [...] nursing note reviewed. Exam conducted with a congressional aide present. Vitals: Estimated body mass index is [...] Luan Betancur DO documented in this encounter [facility] 11-28-2024 History of Presen t illness Narrative [...] of: GEOVANY Burks documented in this encounter [facility] 11-14-2024 History of Presen t illness Narrative [...] nursing note reviewed. Exam conducted with a congressional aide present. Vitals: Estimated body mass index is [...] Luan Betancur DO documented in this encounter [facility] 10-31-2024 History of Presen t illness Narrative [...] of: mannie burks documented in this encounter [facility] 10-03-2024 History of Presen t illness Narrative [...] of: GEOVANY Burks documented in this encounter [facility] 08-31-2024 History of Presen t illness Narrative [...] nursing note reviewed. Exam conducted with a congressional aide present. Vitals: Estimated body mass index is [...] Luan Betancur DO documented in this encounter [facility] 07-29-2024 History of Presen t illness Narrative [...] or undercooked meat, and stay away from [facility]. Patient has also been advised to not [...] by: Ethel Chung documented in this encounter [facility] 03-23-2022 Evaluation note Encounter Date Diagnosis Assessment [...] Contact dermatitis home care material was printed [email or web address] Other 05-20-2022 NoteOrders HCG, Beta Quantitative; Status:In Progress - Specimen/Data Collected,Retrospective Authorization; Done: 14Feb2022 Provider Impressions New pt presents today to discuss her situation. Pt's LMP was 09/09/21 w/ a history of monthly cycles. She had a positive test . Then had bleeding in early October, but continued to have positive urine HCGs. Pt was seeing her FOB's mother who is a playground supervisor who heard a heartbeat w/ a doppler and her abdomen was getting bigger. Three days ago, pt went to a doctor out near her home in [place] and was told that she was not . An ultrasound and test were negative. No info was found in the [facility]. We discussed the fact that [...] care (V22.1) (Z34.90) Vitals Vital Signs Recorded: [id number] 02:22PM Vuzacpfk165 Oybpqjdlc57 Height5 ft 2 in Ihlrqk111 lb 4 oz BMI Mnnqufxauf03.55 kg/m2 BSA Calculated1.61 PHQ-2 #1. Over the last 2 weeks have you felt down, depressed or hopeless? (If yes, answer PHQ-9 below)No PHQ-2 #2. Over the last 2 weeks have you felt little interest or pleasure in doing things? (If yes,answer PHQ-9 below)No Fall Screeninga) No falls within the last year [id number] Pain Scale0 Physical Exam Constitutional: Alert and in no acute distress. Well developed, well nourished Eyes: Normal external exam - nonicteric sclera, extraocular movements intact (EOMI) and no ptosis. Pulmonary: No respiratory distress Abdomen: soft nontender; no abdominal mass palpated, no organomegaly and no hernias Signatures Electronically signed by : KOURTNEY Cummings; Feb 14 2022 3:16PM EST (Author) [facility] noteNo assessment information availableSt. [facility] Work Phone: Evaluation note* Diagnosis Missed menses , unspecified gestational age Encounter for supervision of normal first in first trimester Screening, , for anatomic survey Encounter for anatomic survey documented in this encounter [facility] HealthcareEvaluation note* Diagnosis 20 weeks gestation of Second trimester state, incidental Low-lying placenta Hemorrhage from placenta previa, unspecified as to episode of care documented in this encounter [facility] Healthcare[facility] note* Diagnosis 25 weeks gestation of Second trimester state, incidental documented in this encounter [facility] HealthcareEvaluation note* Diagnosis size inconsistent with dates- Primary Third trimester state, incidental 29 weeks gestation of STD exposure Vaginal discharge Leukorrhea, not specified as infective documented in this encounter [facility] HealthcareEvaluation note* Diagnosis Third trimester state, incidental 31 weeks gestation of Diabetes mellitus screening Screening for diabetes mellitus documented in this encounter [facility] HealthcareEvaluation note* Diagnosis Third trimester state, incidental 33 weeks gestation of documented in this encounter [facility] note* Diagnosis 35 weeks gestation of Third trimester state, incidental [facility]* Diagnosis 37 weeks gestation of Third trimester state, incidental documented in [facility]* Diagnosis Third trimester state, incidental 38 weeks gestation of documented in this encounter [facility] Narrative - Reported* Type Description Date Surgical History right ear tube placed [email or web address] Other Chief Complaint Pt. states that she [...] section and content) DATE CREATED AUTHOR 02/16/[address] [facility] DATE CREATED AUTHOR AUTHOR'S ORGANIZ ATION 02/16/2022 [employer] DATE CREATED AUTHOR AUTHOR'S ORGANIZ ATION 03/10/2022 [facility] DATE CREATED AUTHOR AUTHOR'S ORGANIZ ATION 02/11/2023 [facility] DATE CREATED AUTHOR AUTHOR'S ORGANIZ ATION 11/17/2023 [facility] DATE CREATED AUTHOR AUTHOR'S ORGANIZ ATION 10/10/2024 [facility] DATE CREATED AUTHOR AUTHOR'S ORGANIZ ATION 01/04/2025 [facility] EPIC Care Teams (unrecognized sec [...] ON THE PRIMARY CLINICAL RECORDS. [facility]. provides no warranty or guarantee of the accuracy or completeness of information in this document.
[2025-01-10] MEDS: 0.9 % SODIUM CHLORIDE 1,000 ML 1000 ML IV ×2 (05:55→06:52)
[2025-01-10 06:07] LABS: Basophils Percent Auto 0.3 % (0.2-2.0); Eosinophils Absolute Auto 0.1 10^3/uL (0.0-0.7); Eosinophils Percent Auto 1.6 % (0.9-7.0); Hematocrit 38.7 % (36.0-48.0); Hemoglobin 13.8 g/dL (12.0-16.0); Immature Granulocytes Abs Auto 0.03 10^3/uL (0.00-0.03); Immature Granulocytes Pct Auto 0.4 % (0.0-0.5); Lymphocytes Absolute Auto 1.6 10^3/uL (1.2-3.8); Mean Corpuscular HGB Conc 35.7 g/dL (29.9-35.2); Mean Corpuscular Hemoglobin 31.8 pg (26.7-34.0); Mean Corpuscular Volume 89.2 fL (81.0-99.0); Mean Platelet Volume 10.5 fL (9.5-13.5); Monocytes Absolute Auto 0.5 10^3/uL (0.3-0.8); Monocytes Percent Auto 6.9 % (1.7-12.0); Neutrophils Absolute Auto 4.8 10^3/uL (1.4-6.5); Neutrophils Percent Auto 67.8 % (43.0-75.0); Platelet Count 179 10^3/uL (150-450); Red Blood Count 4.34 10^6/uL (4.20-5.40); Red Cell Distribution Width 12.3 % (11.0-15.0)
[2025-01-10 06:11] LABS: Bilirubin Urine NEGATIVE (NEGATIVE); Blood Urine NEGATIVE (NEGATIVE); Clarity Urine CLEAR (CLEAR); Color Urine LT. YELLOW (YELLOW); Glucose Urine UA NEGATIVE (NEGATIVE); Ketones Urine NEGATIVE (NEGATIVE); Leukocyte Esterase Urine TRACE (NEGATIVE); Nitrite Urine NEGATIVE (NEGATIVE); Protein Urine NEGATIVE (NEG/TRACE); Specific Gravity Urine <=1.005 (1.005-1.025); Urobilinogen Urine 0.2 EU/dL (0.2-1.0); pH Urine 7.5 (5.0-9.0)
[2025-01-10 06:22] LABS: Amphetamine Screen Urine NEGATIVE (NEGATIVE); Barbiturates Screen Urine NEGATIVE (NEGATIVE); Benzodiazepines Screen Urine NEGATIVE (NEGATIVE); Buprenorphine Screen Urine NEGATIVE (NEGATIVE); Cannabinoid Screen Urine NEGATIVE (NEGATIVE); Cocaine Screen Urine NEGATIVE (NEGATIVE); Methadone Screen Urine NEGATIVE (NEGATIVE); Methamphetamines Screen Urine NEGATIVE (NEGATIVE); Opiate Screen Urine NEGATIVE (NEGATIVE); Oxycodone Screen Urine NEGATIVE (NEGATIVE); Phencyclidine Screen Urine NEGATIVE (NEGATIVE); Tricyclic Antidepressant Urine NEGATIVE (NEGATIVE)
[2025-01-10 06:26] LABS: Bacteria Urine MODERATE #/HPF (NONE SEEN); Cast Seen? NONE SEEN #/LPF (NONE SEEN); Crystals Seen? None Seen #/HPF (None Seen); Mucus Urine NONE SEEN (NONE SEEN); RBC Urine 0-2 #/HPF (0-2); Squamous Epithelial Cell Urine FEW #/LPF (NONE/RARE); Urine Culture Indicated YES-LC
[2025-01-10] MEDS: CEFAZOLIN SODIUM/DEXTROSE,ISO 2 GM/50 ML PIGGYBACK IV (07:11)
[2025-01-10] MEDS: METOCLOPRAMIDE HCL 10 MG/2 ML VIAL IVP (07:29)
[2025-01-10] MEDS: FAMOTIDINE/PF 20 MG/2 ML VIAL IV (07:30)
[2025-01-10] MEDS: CITRIC ACID/SODIUM CITRATE 30 ML SOLUTION ORACIT SHOHL'S SOLN PO (07:30)
[2025-01-10] MEDS: LACTATED RINGER'S SOLUTION 1,000 ML 50 ML IV ×2 (07:57→08:07)
--- NOTE | 2025-01-10 08:31 | P.ON_ITS ---
Brief Operative Note Date of procedure: 01/10/25 Pre-op diagnosis general: iup at 39wks, previous c/s Post-op diagnosis: same as pre-op Procedure: NAME OF PROCEDURE: [ section ] PROCEDURE: Patient was taken back to the Operating Room where she was given a spinal anesthesia with Duramorph without difficulty. She was prepped and draped in the normal sterile fashion. A Pfannenstiel skin incision was then made 2 cm above the symphysis pubis and carried down to underlying rectus fascia using a Bovie. The fascia was incised in the midline and extended laterally using Munguia scissors. Two Jake clamps were placed on the superior aspect of the fascia and dissected off the underlying rectus muscles. The same was performed on the inferior aspect as well. The muscles were then in the midline. Peritoneum was identified and entered bluntly. The peritoneum was then extended superiorly and inferiorly with good visualization of the bladder. The bladder blade was inserted. A low transverse incision was made on the patient's uterus and extended laterally digitally. The was then delivered atraumatically after the bladder blade was removed in the cephalic position. The cord was clamped and cut. Cord blood was obtained. The was handed off to awaiting team. The patient's placenta was spontaneously delivered. The uterus was then exteriorized. The uterus was cleared of all clots and debris. The bladder blade was reinserted. The patient's uterine incision was closed using #0 Vicryl in a running lock fashion. Excellent hemostasis was assured. The uterus was then returned to the patient's abdomen. The patient's abdomen was copiously irrigated using warm saline. Peritoneal gutters were cleared of all clots and debris. Again excellent hemostasis was assured. The patient's peritoneum was closed using 3-0 Vicryl in a running fashion. The patient's fascia was closed using #0 Vicryl in a running fashion. The patient's skin was closed using 4-0 Vicryl subcuticularly. The patient tolerated the procedure well. Sponge, lap, and needle counts were correct x2. The patient was taken to the Recovery Room in stable condition. Anesthesia: GETA and spinal Surgeon: Luan Betancur Manager Of Organizational Development: Nichol Seth Estimated blood loss (mL): 575 Pathology: none sent Condition: stable Disposition: PACU Urinary Catheter Management Urinary Catheter Management Urethral: Cath placed during this visit: no
--- NOTE | 2025-01-10 08:31 | PM.OBPRCCS ---
Procedure Pre-op/Post-op diagnoses: Pre-Op/Post-Op Diagnoses Operation Date: 01/10/25 07:30 <No data on this case meets the specified criteria> Procedure: Procedures Operation Date: 01/10/25 07:30 Actual Procedure Side Surgeon p Repeat Not Applicable Luan Betancur DO Heating Repair Technician: Nichol Seth Estimated blood loss (mL): 575 Disposition: PACU Anesthesia type: general
--- NOTE | 2025-01-10 17:11 | RESP.RT ---
done per nursing
[2025-01-11] VITALS (9 sets, daily range): BP systolic 95–117; BP diastolic 63–77; PULSE 91; TEMP 36.5–37.8; O2SAT 98
[2025-01-11 06:39] LABS: Basophils Percent Auto 0.2 % (0.2-2.0); Eosinophils Absolute Auto 0.1 10^3/uL (0.0-0.7); Eosinophils Percent Auto 0.5 % (0.9-7.0); Hematocrit 27.9 % (36.0-48.0); Hemoglobin 9.9 g/dL (12.0-16.0); Immature Granulocytes Abs Auto 0.04 10^3/uL (0.00-0.03); Immature Granulocytes Pct Auto 0.3 % (0.0-0.5); Lymphocytes Absolute Auto 2.1 10^3/uL (1.2-3.8); Lymphocytes Percent Auto 17.6 % (20.5-60.0); Mean Corpuscular HGB Conc 35.5 g/dL (29.9-35.2); Mean Corpuscular Hemoglobin 32.1 pg (26.7-34.0); Mean Corpuscular Volume 90.6 fL (81.0-99.0); Monocytes Absolute Auto 0.8 10^3/uL (0.3-0.8); Monocytes Percent Auto 6.8 % (1.7-12.0); Neutrophils Absolute Auto 8.8 10^3/uL (1.4-6.5); Neutrophils Percent Auto 74.6 % (43.0-75.0); Platelet Count 164 10^3/uL (150-450); Red Blood Count 3.08 10^6/uL (4.20-5.40); Red Cell Distribution Width 12.6 % (11.0-15.0); White Blood Count 11.9 10^3/uL (4.0-11.0)
--- NOTE | 2025-01-11 07:42 | P.OBPN_ITS ---
OB - PN: Subj Subjective Patient comments: no complaints and pain well controlled [place] status: doing well Exam Constitutional Vital Signs, click to edit/add: Last Vital Signs Temp 97.7 F 01/11/25 05:20 Pulse 73 01/10/25 20:58 Resp 17 01/11/25 01:03 BP 113/69 01/11/25 05:20 Pulse Ox 98 01/10/25 16:50 O2 Del Method Room Air 01/11/25 05:15 Documenting provider has reviewed patient's vital signs: yes Common normals: no apparent distress Respiratory Common normals: normal respiratory effort and clear to auscultation bilaterally Cardio Common normals: regular rate and regular rhythm GI Common normals: Normal to inspection, nondistended, normoactive bowel sounds present Extremity Common normals: no clubbing, cyanosis or edema and no calf tenderness Results Labs Labs: Short CBC 01/11/25 Range/Units 06:27 WBC 11.9 H (4.0-11.0) 10^3/uL Hgb 9.9 L (12.0-16.0) g/dL Hct 27.9 L (36.0-48.0) % Plt Count 164 (150-450) 10^3/uL Urinary Catheter Management Urinary Catheter Management Urethral: Cath placed during this visit: yes, but has since been removed by the mike se Removal date: 01/10/25 Removal time: 16:50 OB - PN: A/P Plan - day: 2 Plan: routine postop care, discharge home and other (fu 1wk) Time Spent with Patient Time: Total time spent is greater than 50% in coordination of care (as documented) at patient's floor/unit and/or counseling patient: Total time spent with greater than 50% in coordination of care (as documented) at patient's floor/unit and/or counseling patient: less than 15 minutes
--- NOTE | 2025-01-12 06:21 | P.OBPN_ITS ---
OB - PN: Subj Subjective Patient comments: no complaints [place] status: doing well [place] feeding status: exclusively Exam Constitutional Vital Signs, click to edit/add: Last Vital Signs Temp 99.4 F 01/11/25 23:15 Pulse 91 H 01/11/25 22:52 Resp 17 01/11/25 22:52 BP 116/65 01/11/25 22:52 Pulse Ox 98 01/11/25 17:30 O2 Del Method Room Air 01/11/25 22:55 Documenting provider has reviewed patient's vital signs: yes Common normals: no apparent distress, average body habitus and oriented x3 General appearance: cooperative and comfortable Orientation/consciousness: Yes awake, Yes oriented to person, Yes oriented to place and Yes oriented to time HENMT Common normals: normocephalic Eye Common normals: EOMs intact bilaterally General eye: normal appearance of both eyes Neck & C-Spine Common normals: full ROM General: normal visual inspection Lymph Lymphatic: no lymphadenopathy noted Chest Common normals: inspection of chest normal Respiratory Common normals: normal respiratory effort Effort & inspection: able to speak in complete sentences Auscultation: clear to auscultation bilaterally Cardio Common normals: regular rate and regular rhythm Rate: regular rate Rhythm: regular rhythm GI Common normals: Normal to inspection, nondistended, normoactive bowel sounds present Inspection: normal to inspection Auscultation: normoactive bowel sounds Palpation: soft Back & Pelvis Common normals: no CVA tenderness Extremity Common normals: normal to inspection, full ROM and normal capillary refill Neuro Common normals: oriented x3 Sensorium/orientation: awake, alert, oriented to person, oriented to place and oriented to time Psych Common normals: mental status grossly normal, thought process normal, cooperative, affect normal, speech normal, activity/motor behavior normal, edwar es hallucinations, denies homicidal ideation and denies suicidal ideation Appearance: grossly normal Attitude: calm Results Labs Labs: Short CBC 01/11/25 Range/Units 06:27 WBC 11.9 H (4.0-11.0) 10^3/uL Hgb 9.9 L (12.0-16.0) g/dL Hct 27.9 L (36.0-48.0) % Plt Count 164 (150-450) 10^3/uL Urinary Catheter Management Urinary Catheter Management Urethral: Cath placed during this visit: yes, but has since been removed by the nurse Urethral indwelling: No Removal date: 01/10/25 Removal time: 16:50 OB - PN: A/P Plan - day: 2 Plan: discharge home Time Spent with Patient Time: Total time spent is greater than 50% in coordination of care (as documented) at patient's floor/unit and/or counseling patient: Total time spent with greater than 50% in coordination of care (as documented) at patient's floor/unit and/or counseling patient: less than 15 minutes
[2025-01-12 09:40] VITALS: BP 120/74; TEMP 36.6; O2SAT 98
== END 2025-01-12 13:00 | disposition home or self-care (01) | DRG 540 ==
PROVIDERS: Admitting Provider Obstetrics & Gynecology; Visit Provider Obstetrics & Gynecology
PROC: 10D00Z1 Extraction of Products of Conception, Low, Open Approach (ICD-10-PCS; CPT 59514; principal; 2025-01-10 07:30)
DX: O34.212 Maternal care for vertical scar from previous cesarean delivery (principal); Z3A.39 39 weeks gestation of pregnancy; Z37.0 Single live birth; Z23 Encounter for immunization; Z88.0 Allergy status to penicillin; Z88.1 Allergy status to other antibiotic agents
CPT/HCPCS: 36415; 64488; 80307; 81001; 85025; 86850; 86900; 86901; 87086; 94667; 94668; J0131; J0330; J0665; J0690; J1100; J1885; J2274; J2371; J2405; J2590; J2704; J2765; J3010; J3490